=== PATIENT | male | born 1980 | race Two or more races ===

== ENCOUNTER 2018-05-27 08:45 | Inpatient (IN) | payer OTHER ==
[2018-05-27 09:39] VITALS: BMI 35.1
--- NOTE | 2018-05-27 09:53 | HP ---
CIWA Score Nausea/Vomitin Muscle Tremors: 4-Moderate,w/Arms Extend Anxiety: 4-Mod. Anxious/Guarded Agitation: 1-Slight > Activity Paroxysmal Sweats: 3 Orientation: 0-Oriented Tacttile Disturbances: 0-None Auditory Disturbances: 2-Mild Harshness/Frighten Visual Disturbances: 2-Mild Sensitivity Headache: 4-Moderately Severe CIWA-Ar Total Score: 23 - Admission Criteria OASAS Guidelines: Admission for Medically Managed Detox: Requires at least one of the followin. CIWA greater than 12 2. Seizures within the past 24 hours 3. Delirium tremens within the past 24 hours 4. Hallucinations within the past 24 hours 5. Acute intervention needed for co occurring medical disorder 6. Acute intervention needed for co occurring psychiatric disorder 7. Severe withdrawal that cannot be handled at a lower level of care (continued vomiting, continued diarrhea, abnormal vital signs) requiring intravenous medication and/or fluids 8. Admission ROS [facility] Allergies/Adverse Reactions: Allergies Allergy/AdvReac Type Severity Reaction Status Date / Time aspirin Allergy Mild Rash Verified 05/27/18 10:13 History of Present Illness: patient here requesting detox from etoh use , reports 3 pints/day x 5 years , referred by [facility] x almost 5 years current daily dose 130 mg , first age of use heroin 13 , IVDU in [place] , needles from the exchange , + sharing in the past , denies re-using , + abscess R UE 7 years ago lanced by himself , OD x 5 most recently 2 mo ago , Narcan 1998 , latest use this morning , currently 12-13 bags IVDU . ETOH latest use yesterday morning , current symptoms as above , starts drinking around 8 am , + tremors , diarrhea if not drinking , + w/d seizure 2 years ago , + blackouts while intoxicated , + falls 2 weeks ago denies injuries to self or others . Does not drive . cannabis : 1 blunt daily since age 10 tobacco : 2 ppd , first age of use 7 utox + mop, oxy , bzo, thc, mtd benzo : 8-10 x 2 mg xanax daily since age 11 , denies w/d seizures , latest use yesterday cocaine : occasional Shx : group home [place] , unemployed , finances habit through ann-handling , recycling cans . 4 children, 2 in [place] , 2 in [place] : 22, 16 , 8,5 living w/ bio mothers. PMhx : htn , asthma ( dx childhood , hospitalized , NI , has inhaler Albuterol latest used yesterday ), hep C 1997 no tx , claims had " tumor in pelvis " [facility] 1997 , HSV 1 & 2 , denies syphyllis tx PShx : as above Psych : depression , has seen psych in the past, was rx Zyprexa , latest taken 3 weeks ago . Exam Limitations: Clinical Condition - Ebola screening Have you traveled outside of the country in the last 21 days: No Have you had contact with anyone from an Ebola affected area: No Have you been sick,other than usual withdrawal symptoms: Yes Do you have a fever: No - Review of Systems Constitutional: See HPI EENT: reports: Other (denies vision loss, denies dysphagia ,) Respiratory: reports: No Symptoms reported Cardiac: reports: No Symptoms Reported GI: reports: See HPI : reports: No Symptoms Reported Musculoskeletal: reports: Back Pain Integumentary: reports: Erythema (legs) Neuro: reports: Headache, Unsteady Gait Endocrine: reports: No Symptoms Reported Psychiatric: reports: Orientated x3, Depressed Patient History - Patient Medical History Hx Anemia: No Hx Asthma: Yes Hx Chronic Obstructive Pulmonary Disease (COPD): No Hx Cancer: No Hx Cardiac Disorders: No Hx Congestive Heart Failure: No Hx Hypertension: No Hx Hypercholesterolemia: No Hx Pacemaker: No HX Cerebrovascular Accident: No Hx Seizures: No Hx Dementia: No Hx Diabetes: No Hx Gastrointestinal Disorders: No Hx Liver Disease: No Hx Genitourinary Disorders: No Hx Sexually Transmitted Disorders: No Hx Renal Disease (ESRD): No Hx Thyroid Disease: No Hx Human Immunodeficiency Virus (HIV): No Hx Hepatitis C: Yes (no tx. for now) Hx Depression: Yes Hx Suicide Attempt: No Hx Bipolar Disorder: Yes Hx Schizophrenia: No - Patient Surgical History Past Surgical History: Yes Hx Neurologic Surgery: No Hx Cataract Extraction: No Hx Cardiac Surgery: No Hx Lung Surgery: No Hx Breast Surgery: No Hx Breast Biopsy: No Hx Abdominal Surgery: No Hx Appendectomy: No Hx Cholecystectomy: No Hx Genitourinary Surgery: No Hx Section: (n/a) Hx Orthopedic Surgery: Yes (removal of benign tumor left pelvis in 1997 at [facility] [place]) Anesthesia Reaction: No - PPD History Date: 02/07/14 Results: 0 mm - Smoking Cessation Smoking history: Current every day smoker Have you smoked in the past 12 months: Yes Aproximately how many cigarettes per day: 30 Cigars Per Day: 40 Hx Chewing Tobacco Use: No Initiated information on smoking cessation: No - Substances Abused Alcohol Route: Oral Frequency: Daily Amount used: 1 pint of vodka and up Age of first use: 23 Date of Last Use: 05/26/18 Alprazolam (Xanax) Route: Oral Frequency: Daily Amount used: 16mg Age of first use: 13 Date of Last Use: 05/26/18 Heroin Route: Injection Frequency: Daily Amount used: 10-16 bags Age of first use: 12 Date of Last Use: 05/26/18 Marijuana/Hashish Route: Smoking Frequency: 1-2 times per week Amount used: 1 blunt Age of first use: 7 Date of Last Use: 05/20/18 Family Disease History - Family Disease History Family History: Denies Admission Physical Exam [facility] - Vital Signs Vital Signs: Vital Signs - 24 hr 05/27/18 09:34 Temperature 97.4 F L Pulse Rate 63 Respiratory 16 Rate Blood Pressure 124/76 - Physical General Appearance: Yes: Disheveled, Moderate Distress, Tremorous, Anxious HEENTM: Yes: EOMI, Hearing grossly Normal, Normocephalic, Normal Voice, Nasal Congestion Respiratory: Yes: Chest Non-Tender, Lungs Clear, Normal Breath Sounds Neck: Yes: No masses,lesions,Nodules, Trachea in good position Breast: Yes: Breast Exam Deferred Cardiology: Yes: Regular Rhythm, Regular Rate, S1, S2 Abdominal: Yes: Normal Bowel Sounds, Soft Genitourinary: Yes: Within Normal Limits Back: Yes: Normal Inspection Musculoskeletal: Yes: Other (unsteady gait) Extremities: Yes: Tremors, Erythema (le edema, erythema, dry skin) Neurological: Yes: Motor Strength 5/5, Depressed Affect Integumentary: Yes: Normal Color - Diagnostic (1) Sedative hypnotic or anxiolytic dependence Current Visit: Yes Status: Acute (2) Sedative hypnotic withdrawal Current Visit: Yes Status: Acute Qualifiers: Complication of substance-induced condition: uncomplicated Qualified Code(s ): F13.230 - Sedative, hypnotic or anxiolytic dependence with withdrawal, uncomplicated (3) Opioid dependence on agonist therapy Current Visit: Yes Status: Chronic (4) Alcohol dependency Current Visit: No Status: Acute Qualifiers: Substance use status: in withdrawal (5) Nicotine dependence Current Visit: No Status: Chronic Qualifiers: Nicotine product type: cigarettes (6) Cannabis dependence Current Visit: No Status: Chronic BHS Breath Alcohol Content Breath Alcohol Content: 0 Urine Drug Screen - Results Drug Screen Negative: No Urine Drug Screen Results: THC-Marijuana, OPI-Opiates, BZO-Benzodiazepines, MTD- Methadone, OXY-Oxycodone
[2018-05-27] MEDS ORDERED: chlordiazePOXIDE HCL 25 MG CAPSULE PO PRN (10:01)
[2018-05-27] MEDS ORDERED: NICOTINE POLACRILEX 2 MG GUM BUC PRN (10:01)
[2018-05-27] MEDS ORDERED: P-EPHED 60MG/TRIPROLIDI 2.5MG TABLET PO PRN (10:01)
[2018-05-27] MEDS ORDERED: guaiFENesin/D-METHORPHAN HB 10 ML UNIT-DOSE CUPS PO PRN (10:01)
[2018-05-27] MEDS ORDERED: MENTHOL/PHENOL 1 EACH UD MM PRN (10:01)
[2018-05-27] MEDS ORDERED: MAGNESIUM HYDROX 2400MG/30ML ORAL SUSPENSION 30 ML CUP PO PRN (10:01)
[2018-05-27] MEDS ORDERED: MAGNESIUM CITRATE 300 ML BOTTLE PO PRN (10:01)
[2018-05-27] MEDS ORDERED: ACETAMINOPHEN 325 MG TABLET (FP) PO PRN (10:01)
[2018-05-27] MEDS ORDERED: MAG HYDROX/AL HYDROX/SIMETH 30 ML UNIT-DOSE CUP PO PRN (10:01)
[2018-05-27] MEDS ORDERED: ALBUTEROL SO4 0.083% IH SOL 2.5 MG/3 ML VIAL.NEB. NEB PRN (10:03)
[2018-05-27] MEDS: cloNIDine HCL 0.1 MG TABLET PO PRN (11:46)
[2018-05-27] MEDS: ALBUTEROL SO4 8 GM HFA INHALER IH PRN (11:54)
[2018-05-27] MEDS: chlordiazePOXIDE HCL 25 MG CAPSULE PO SCH ×2 (18:28→22:59)
[2018-05-27] MEDS ORDERED: MELATONIN 5 MG TABLETS PO PRN (22:00)
[2018-05-27] MEDS: THIAMINE HCL 100 MG TABLET (FP) PO SCH (22:59)
[2018-05-28] MEDS: chlordiazePOXIDE HCL 25 MG CAPSULE PO SCH ×4 (05:54→23:04)
--- NOTE | 2018-05-28 09:14 | CONSULT ---
[facility] Psychiatric Consult - Data Date of interview: 05/28/18 Admission source: [facility] Identifying data: This is a 37 years old male, father of four, unemployed, living at halfway, on SSI support, with no psychiatric hospitalization history, patient here requesting detox from etoh use , reports Alcohol dependence, Cannabis, Cocaine, Heroin, Xanax abuse/dependence and seeking detox. Reports MMTP with current dose of 130mg per day. Substance Abuse History: Smoking history: Current every day smoker. Have you smoked in the past 12 months: Yes. Aproximately how many cigarettes per day: 30. Cigars Per Day: 40. Hx Chewing Tobacco Use: No. Initiated information on smoking cessation: No. - Substances Abused. Alcohol. Route: Oral. Frequency: Daily. Amount used: 1 pint of vodka and up. Age of first use: 23. Date of Last Use: 05/26/18. Alprazolam (Xanax). Route: Oral. Frequency: Daily. Amount used: 16mg. Age of first use: 13. Date of Last Use: 05/26/18. Heroin. Route: Injection. Frequency: Daily. Amount used: 10-16 bags. Age of first use: 12. Date of Last Use: 05/26/18. Marijuana/Hashish. Route: Smoking. Frequency: 1-2 times per week. Amount used: 1 blunt. Age of first use: 7. Date of Last Use: 05/20/18 Medical History: Asthma, HepC+, Psychiatric History: Patient reports history of depression and anxiety, reports no medications taking prior to admission, denies suicidal, homicidal history. Physical/Sexual Abuse/Trauma History: Denies Additional Comment: Observation. Detox Unit Care Protocol Mental Status Exam - Mental Status Exam Alert and Oriented to: Person Cognitive Function: Fair Patient Appearance: Unkempt Mood: Sad Affect: Flat Patient Behavior: Sedated Speech Pattern: Delayed Voice Loudness: Mildly Soft/Quiet Thought Process: Circumstantial Thought Disorder: Being Controlled Hallucinations: Denies Suicidal Ideation: Denies Homicidal Ideation: Denies Insight/Judgement: Fair Sleep: Difficulty falling asleep Appetite: Weight loss Muscle strength/Tone: Mild Hypotonicity Gait/Station: Shuffling Additional Comments: Observation. Detox Unit Care Protocol Psychiatric Findings - Problem List ([place] 1, 2,3) (1) Sedative hypnotic or anxiolytic dependence Current Visit: Yes Status: Acute (2) Sedative hypnotic withdrawal Current Visit: Yes Status: Acute Qualifiers: Complication of substance-induced condition: uncomplicated Qualified Code(s ): F13.230 - Sedative, hypnotic or anxiolytic dependence with withdrawal, uncomplicated (3) Opioid dependence on agonist therapy Current Visit: Yes Status: Chronic (4) Opioid dependence Current Visit: No Status: Active (5) Sedative dependence Current Visit: No Status: Active (6) mmtp Current Visit: No Status: Active (7) Alcohol dependency Current Visit: No Status: Acute Qualifiers: Substance use status: in withdrawal (8) Methadone maintenance therapy patient Current Visit: No Status: Acute (9) Personality disorder Current Visit: No Status: Acute (10) Substance induced mood disorder Current Visit: No Status: Acute (11) Nicotine dependence Current Visit: No Status: Chronic Qualifiers: Nicotine product type: cigarettes - Initial Treatment Plan Initial Treatment Plan: Observation. Detox Unit Care Protocol
--- NOTE | 2018-05-28 09:15 | CONSULT ---
[facility] Psychiatric Consult - Data Date of interview: 05/28/18 Admission source: [facility] Identifying data: Smoking history: Current every day smoker. Have you smoked in the past 12 months: Yes. Aproximately how many cigarettes per day: 30. Cigars Per Day: 40. Hx Chewing Tobacco Use: No. Initiated information on smoking cessation: No. - Substances Abused. Alcohol. Route: Oral. Frequency: Daily. Amount used: 1 pint of vodka and up. Age of first use: 23. Date of Last Use: 05/26/18. Alprazolam (Xanax). Route: Oral. Frequency: Daily. Amount used: 16mg. Age of first use: 13. Date of Last Use: 05/26/18. Heroin. Route: Injection. Frequency: Daily. Amount used: 10-16 bags. Age of first use: 12. Date of Last Use: 05/26/18. Marijuana/Hashish. Route: Smoking. Frequency: 1-2 times per week. Amount used: 1 blunt. Age of first use: 7. Date of Last Use: 05/20/18
[2018-05-28] MEDS ORDERED: METHADONE HCL 10 MG TABLET PO ONE (10:25)
[2018-05-28 10:31] LABS: ALBUMIN 3.4 g/dl (3.4-5.0); ALK PHOS 74 U/L (45-117); ANION GAP 6 MMOL/L (8-16); BILIRUBIN,TOTAL 0.3 mg/dL (0.2-1); BLOOD UREA NITROGEN 10 mg/dL (7-18); CALCIUM 8.7 mg/dL (8.5-10.1); CHLORIDE 106 mmol/L (98-107); CO2 30 mmol/L (21-32); CREATININE 0.6 mg/dL (0.55-1.3); GLUCOSE,RANDOM 90 mg/dL (74-106); POTASSIUM 4.3 mmol/L (3.5-5.1); SGOT/AST 67 U/L (15-37); SGPT/ALT 48 U/L (13-61); SODIUM 142 mmol/L (136-145); TOT PROT 6.4 g/dl (6.4-8.2)
[2018-05-28] MEDS ORDERED: METHADONE 120 MG, METHADONE 10 MG PO ONE (10:35)
[2018-05-28] MEDS ORDERED: METHADONE HCL 40 MG DISPERSABLE TABLET ONE (10:37)
[2018-05-28] MEDS ORDERED: METHADONE HCL 10 MG TABLET ONE (10:38)
[2018-05-28] MEDS: PRENATAL VITAMINS W/ FOLIC ACID TABLET (FP) PO SCH (10:41)
--- NOTE | 2018-05-28 10:47 | PN ---
S CIWA - CIWA Score Nausea/Vomitin-No Nausea/No Vomiting Muscle Tremors: 4-Moderate,w/Arms Extend Anxiety: 4-Mod. Anxious/Guarded Agitation: 4-Moderately Restless Paroxysmal Sweats: 4-Forehead w/Sweat Beads Orientation: 0-Oriented Tacttile Disturbances: 0-None Auditory Disturbances: 0-None Visual Disturbances: 0-None Headache: 1-Very Mild CIWA-Ar Total Score: 17 BHS Progress Note (SOAP) Subjective: shakes sweats irritable I need my methadone it was verified why didnt the doctor downstairs order it. agitation body aches Objective: 05/28/18 10:46 Vital Signs Temperature 98.4 F 05/28/18 09:22 Pulse Rate 78 05/28/18 09:22 Respiratory Rate 18 05/28/18 09:22 Blood Pressure 115/55 L 05/28/18 09:22 O2 Sat by Pulse Oximetry (%) Laboratory Tests 05/27/18 05/28/18 10:30 06:00 Sodium 142 Potassium 4.3 Chloride 106 Carbon Dioxide 30 Anion Gap 6 L BUN 10 Creatinine 0.6 Creat Clearance w eGFR > 60 Random Glucose 90 Calcium 8.7 Total Bilirubin 0.3 AST 67 H ALT 48 Alkaline Phosphatase 74 Total Protein 6.4 Albumin 3.4 HIV 1&2 Antibody Screen Negative HIV P24 Antigen Negative rest of labs pending aaox3 ambulating no acute distress methadone ordered; dose was verified yesterday as what the pt had said. Assessment: 05/28/18 10:47 withdrawal sx Plan: continue detox increase fluids labs pending
[2018-05-28 12:20] LABS: HEMATOCRIT 35.7 % (35.4-49); HEMOGLOBIN 12.3 GM/dL (11.7-16.9); MCH 30.9 pg (25.7-33.7); MCHC 34.6 g/dl (32.0-35.9); MEAN CELL VOLUME 89.4 fl (80-96); MEAN PLT VOLUME 11.9 fl (7.5-11.1); PLATELET COUNT 147 K/MM3 (134-434); RBC 3.99 M/mm3 (4.00-5.60); RDW 15.4 % (11.9-15.9); WHITE BLOOD COUNT 3.9 K/mm3 (4.0-10.0)
[2018-05-28] MEDS: THIAMINE HCL 100 MG TABLET (FP) PO SCH (23:04)
[2018-05-28] MEDS: cloNIDine HCL 0.1 MG TABLET PO PRN (23:04)
[2018-05-29] MEDS ORDERED: METHADONE HCL 40 MG DISPERSABLE TABLET ONE (05:53)
[2018-05-29] MEDS: chlordiazePOXIDE HCL 25 MG CAPSULE PO SCH ×2 (05:53→11:06)
[2018-05-29] MEDS: METHADONE 120 MG, METHADONE 10 MG PO SCH (05:54)
[2018-05-29] MEDS ORDERED: METHADONE HCL 10 MG TABLET ONE (05:54)
[2018-05-29] MEDS ORDERED: METHADONE HCL 40 MG DISPERSABLE TABLET PO SCH (06:00)
[2018-05-29] MEDS ORDERED: TRIMETHOBENZAMIDE HCL 200MG/2ML INJ IM ONE (09:28)
[2018-05-29] MEDS ORDERED: BACLOFEN 10 MG TABLET (FP) PO ONE (09:28)
[2018-05-29] MEDS ORDERED: TRIMETHOBENZAMIDE HCL 300 MG CAPSULE PO PRN (09:39)
[2018-05-29] MEDS: PRENATAL VITAMINS W/ FOLIC ACID TABLET (FP) PO SCH (11:05)
[2018-05-29] MEDS: cloNIDine HCL 0.1 MG TABLET PO PRN (11:05)
[2018-05-29] MEDS: ALBUTEROL SO4 8 GM HFA INHALER IH PRN (11:08)
--- NOTE | 2018-05-29 11:38 | PN ---
S CIWA - CIWA Score Nausea/Vomitin-No Nausea/No Vomiting Muscle Tremors: 3 Anxiety: 3 Agitation: 3 Paroxysmal Sweats: 3 Orientation: 0-Oriented Tacttile Disturbances: 0-None Auditory Disturbances: 0-None Visual Disturbances: 0-None Headache: 0-None Present CIWA-Ar Total Score: 12 BHS Progress Note (SOAP) Subjective: sweats shakes interrupted sleep body aches nausea Objective: 05/29/18 11:44 Vital Signs Temperature 98.2 F 05/29/18 09:31 Pulse Rate 67 05/29/18 09:31 Respiratory Rate 18 05/29/18 09:31 Blood Pressure 109/61 05/29/18 09:31 O2 Sat by Pulse Oximetry (%) Laboratory Tests 05/27/18 05/28/18 05/28/18 10:30 06:00 06:00 WBC 3.9 L RBC 3.99 L Hgb 12.3 Hct 35.7 MCV 89.4 MCH 30.9 MCHC 34.6 RDW 15.4 Plt Count 147 D MPV 11.9 H Sodium 142 Potassium 4.3 Chloride 106 Carbon Dioxide 30 Anion Gap 6 L BUN 10 Creatinine 0.6 Creat Clearance w eGFR > 60 Random Glucose 90 Calcium 8.7 Total Bilirubin 0.3 AST 67 H ALT 48 Alkaline Phosphatase 74 Total Protein 6.4 Albumin 3.4 RPR Titer HIV 1&2 Antibody Screen Negative HIV P24 Antigen Negative 05/28/18 06:00 WBC RBC Hgb Hct MCV MCH MCHC RDW Plt Count MPV Sodium Potassium Chloride Carbon Dioxide Anion Gap BUN Creatinine Creat Clearance w eGFR Random Glucose Calcium Total Bilirubin AST ALT Alkaline Phosphatase Total Protein Albumin RPR Titer Nonreactive HIV 1&2 Antibody Screen HIV P24 Antigen aaox3 ambulating no acute distress Assessment: 05/29/18 11:45 withdrawal sx Plan: continue detox increase fluids baclofen 10mg tid tigan IM x one/ po prn
[2018-05-29] MEDS: BACLOFEN 10 MG TABLET (FP) PO SCH ×2 (15:26→23:03)
[2018-05-29] MEDS: chlordiazePOXIDE 5 MG CAPSULE PO SCH ×2 (17:30→23:04)
[2018-05-29] MEDS: THIAMINE HCL 100 MG TABLET (FP) PO SCH (23:04)
[2018-05-30] MEDS ORDERED: METHADONE HCL 40 MG DISPERSABLE TABLET ONE (04:34)
[2018-05-30] MEDS ORDERED: METHADONE HCL 10 MG TABLET ONE (04:35)
[2018-05-30] MEDS: BACLOFEN 10 MG TABLET (FP) PO SCH ×2 (05:58→14:20)
[2018-05-30] MEDS: chlordiazePOXIDE 5 MG CAPSULE PO SCH ×2 (05:58→10:16)
[2018-05-30] MEDS: METHADONE 120 MG, METHADONE 10 MG PO SCH (05:59)
[2018-05-30] MEDS: PRENATAL VITAMINS W/ FOLIC ACID TABLET (FP) PO SCH (10:16)
--- NOTE | 2018-05-30 11:18 | PN ---
[facility] Progress Note (SOAP) Subjective: low back pain feeling so much better Objective: 05/30/18 11:08 Vital Signs Temperature 98.4 F 05/30/18 09:58 Pulse Rate 61 05/30/18 09:58 Respiratory Rate 18 05/30/18 09:58 Blood Pressure 120/84 05/30/18 09:58 O2 Sat by Pulse Oximetry (%) aaox3 ambulating no acute distress Assessment: 05/30/18 11:09 no s/s of withdrawal noted. Plan: lidocaine patch d/c [facility] today
--- NOTE | 2018-05-30 12:08 | DS ---
[facility] Detox Discharge Summary Admission Date: 05/27/18 Discharge Date: 05/30/18 - History Present History: Alcohol Dependence, Cannabis Dependence, Sedative Dependence, MMTP - Physical Exam Results Vital Signs: Vital Signs Temperature 98.4 F 05/30/18 09:58 Pulse Rate 61 05/30/18 09:58 Respiratory Rate 18 05/30/18 09:58 Blood Pressure 120/84 05/30/18 09:58 O2 Sat by Pulse Oximetry (%) - Treatment Hospital Course: Detox Protocol Followed, Detoxed Safely, Responded well, Discharged Condition Good, Rehab Referral Accepted - Medication Discharge Medications: Ambulatory Orders Albuterol Sulfate Inhaler - [Ventolin HFA Inhaler -] 2 inh PO Q4H PRN 11/26/13 Clonidine HCl 0.2 mg PO DAILY 05/27/18 Methadone [Dolophine -] 130 mg PO DAILY 05/27/18 - AMA Did Patient Leave Against Medical Advice: No (going to our rehab [facility])
[2018-05-30] MEDS ORDERED: LIDOCAINE 5% TOPICAL PATCH TP ONE (12:11)
[2018-05-30 14:14] VITALS: BP 118/57; PULSE 57; TEMP 97.9
[2018-05-30] MEDS ORDERED: chlordiazePOXIDE HCL 10 MG CAPSULE PO SCH (17:00)
[2018-05-30] MEDS ORDERED: LIDOCAINE PATCH REMOVAL MC SCH (22:00)
== END 2018-05-30 02:30 | disposition other institution (70) | DRG 773 ==
LOC: YASAS 08:45 → Y6N 10:54
PROVIDERS: ADMIT Neuromusculoskeletal Medicine & OMM; ATTEND Neuromusculoskeletal Medicine & OMM
PROC: HZ2ZZZZ Detoxification Services for Substance Abuse Treatment (ICD-10-PCS; principal; 2018-05-27)
DX: F10.230 Alcohol dependence with withdrawal, uncomplicated (principal); F11.20 Opioid dependence, uncomplicated; F13.230 Sedative, hypnotic or anxiolytic dependence with withdrawal, uncomplicated; F12.20 Cannabis dependence, uncomplicated; F17.210 Nicotine dependence, cigarettes, uncomplicated; F60.9 Personality disorder, unspecified; F19.24 Other psychoactive substance dependence with psychoactive substance-induced mood disorder; J45.909 Unspecified asthma, uncomplicated; B18.2 Chronic viral hepatitis C; Z88.6 Allergy status to analgesic agent
CPT/HCPCS: 36415; 80053; 85027; 86593; 87389; J0475; J0735

== ENCOUNTER 2018-05-30 14:38 | Inpatient (IN) | payer OTHER ==
--- NOTE | 2018-05-30 12:09 | HP ---
[facility] Rehab Assess/Revision - Admission History Ad[facility] to Rehab [facility] - Findings Detox History & Physical reviewed: Yes Concur with findings: Yes Inpatient Rehab Admission - Initial Determination Are CD services needed?: Yes Not in need of hospitalization: Yes - Rehab Admission Criteria Previous failed treatment: Yes Poor recovery environment: Yes Comorbidities: Yes Lacks judgement: Yes Patient is meeting Inpatient Rehab admission criteria:: Yes
[~2018-05-30 14:38] MED LIST: IBUPROFEN 400 MG TABLET (FP) PO PRN; LOPERAMIDE HCL 2 MG CAPSULE PO PRN; MAG HYDROX/AL HYDROX/SIMETH 30 ML UNIT-DOSE CUP PO PRN; MAGNESIUM CITRATE 300 ML BOTTLE PO PRN; MAGNESIUM HYDROX 2400MG/30ML ORAL SUSPENSION 30 ML CUP PO PRN; MENTHOL/PHENOL 1 EACH UD MM PRN; P-EPHED 60MG/TRIPROLIDI 2.5MG TABLET PO PRN; guaiFENesin/D-METHORPHAN HB 10 ML UNIT-DOSE CUPS PO PRN
[2018-05-30 15:01] VITALS: BMI 35.1
[2018-05-30] MEDS: MELATONIN 5 MG TABLETS PO PRN (21:42)
[2018-05-30] MEDS: THIAMINE HCL 100 MG TABLET (FP) PO SCH (21:42)
[2018-05-30] MEDS: hydrOXYzine PAMOATE 50 MG CAPSULE (FP) PO PRN (21:43)
[2018-05-30] MEDS: LIDOCAINE PATCH REMOVAL MC SCH (22:12)
[2018-05-31] MEDS ORDERED: METHADONE HCL 40 MG DISPERSABLE TABLET ONE (04:10)
[2018-05-31] MEDS ORDERED: METHADONE HCL 10 MG TABLET ONE (04:10)
[2018-05-31] MEDS: METHADONE 120 MG, METHADONE 10 MG PO SCH (05:57)
[2018-05-31] MEDS ORDERED: METHADONE HCL 40 MG DISPERSABLE TABLET PO SCH (06:00)
[2018-05-31] MEDS: NICOTINE 21 MG/24 HOURS TOPICAL PATCH TD SCH (09:56)
[2018-05-31] MEDS: LIDOCAINE 5% TOPICAL PATCH TP SCH (09:56)
[2018-05-31] MEDS: hydrOXYzine PAMOATE 50 MG CAPSULE (FP) PO PRN ×2 (09:56→21:45)
[2018-05-31] MEDS: PRENATAL VITAMINS W/ FOLIC ACID TABLET (FP) PO SCH (09:56)
[2018-05-31] MEDS ORDERED: FLU VACCINE QUAD 60 MCG/0.5 ML (MDV 18-19) IM ONE (12:00)
[2018-05-31] MEDS: THIAMINE HCL 100 MG TABLET (FP) PO SCH (21:45)
[2018-05-31] MEDS: MELATONIN 5 MG TABLETS PO PRN (21:45)
[2018-05-31] MEDS: LIDOCAINE PATCH REMOVAL MC SCH (21:46)
[2018-06-01] MEDS ORDERED: METHADONE HCL 10 MG TABLET ONE (03:52)
[2018-06-01] MEDS ORDERED: METHADONE HCL 40 MG DISPERSABLE TABLET ONE (03:52)
[2018-06-01] MEDS: METHADONE 120 MG, METHADONE 10 MG PO SCH (06:02)
[2018-06-01] MEDS: PRENATAL VITAMINS W/ FOLIC ACID TABLET (FP) PO SCH (09:43)
[2018-06-01] MEDS: LIDOCAINE 5% TOPICAL PATCH TP SCH (09:43)
[2018-06-01] MEDS: NICOTINE 21 MG/24 HOURS TOPICAL PATCH TD SCH (09:43)
[2018-06-01] MEDS: THIAMINE HCL 100 MG TABLET (FP) PO SCH (21:41)
[2018-06-01] MEDS: hydrOXYzine PAMOATE 50 MG CAPSULE (FP) PO PRN (21:41)
[2018-06-01] MEDS: MELATONIN 5 MG TABLETS PO PRN (21:41)
[2018-06-01] MEDS: LIDOCAINE PATCH REMOVAL MC SCH (21:42)
[2018-06-02] MEDS ORDERED: METHADONE HCL 10 MG TABLET ONE (02:39)
[2018-06-02] MEDS ORDERED: METHADONE HCL 40 MG DISPERSABLE TABLET ONE (02:39)
[2018-06-02] MEDS: METHADONE 120 MG, METHADONE 10 MG PO SCH (06:14)
[2018-06-02] MEDS: NICOTINE 21 MG/24 HOURS TOPICAL PATCH TD SCH (09:39)
[2018-06-02] MEDS: LIDOCAINE 5% TOPICAL PATCH TP SCH (09:39)
[2018-06-02] MEDS: PRENATAL VITAMINS W/ FOLIC ACID TABLET (FP) PO SCH (09:39)
[2018-06-02] MEDS: THIAMINE HCL 100 MG TABLET (FP) PO SCH (21:23)
[2018-06-02] MEDS: LIDOCAINE PATCH REMOVAL MC SCH (21:24)
[2018-06-02] MEDS: MELATONIN 5 MG TABLETS PO PRN (21:24)
[2018-06-02] MEDS: hydrOXYzine PAMOATE 50 MG CAPSULE (FP) PO PRN (21:25)
[2018-06-03] MEDS ORDERED: METHADONE HCL 40 MG DISPERSABLE TABLET ONE (03:16)
[2018-06-03] MEDS ORDERED: METHADONE HCL 10 MG TABLET ONE (03:16)
[2018-06-03] MEDS: METHADONE 120 MG, METHADONE 10 MG PO SCH (06:06)
--- NOTE | 2018-06-03 09:26 | PN ---
[facility] Progress Note Note: PATIENT PRESENTS WITH LOW BACK PAIN WITH NO RELIEF FROM LIDOCAINE PATCHES. PATIENT DENIES FREQUENCY OF URINATION, PAINFUL URINATION, PELVIC PAIN AND FEVER. Vital Signs Temperature 97.3 F L 06/03/18 07:33 Pulse Rate 58 L 06/03/18 07:33 Respiratory Rate 18 06/03/18 07:33 Blood Pressure 132/76 06/03/18 07:33 O2 Sat by Pulse Oximetry (%) PE: ALERT AND ORIENTED X 3 SKIN WARM AND DRY : NEGATIVE CVAT AND PELVIC DISCOMFORT EXT FULL ROM, NO VISIBLE EDEMA AMD AD VALERY A/P: UA ON 05/30/18 REVIEWED AND NEG FOR UTI LBP WILL ADD FLEXERIL TO REGIMEN CONTINUE TO MONITOR CLINICALLY
[2018-06-03] MEDS: hydrOXYzine PAMOATE 50 MG CAPSULE (FP) PO PRN (10:10)
[2018-06-03] MEDS: NICOTINE 21 MG/24 HOURS TOPICAL PATCH TD SCH (10:10)
[2018-06-03] MEDS: LIDOCAINE 5% TOPICAL PATCH TP SCH (10:10)
[2018-06-03] MEDS: PRENATAL VITAMINS W/ FOLIC ACID TABLET (FP) PO SCH (10:10)
[2018-06-03] MEDS: CYCLOBENZAPRINE HCL 10 MG TABLET (FP) PO SCH ×2 (14:48→21:52)
[2018-06-03] MEDS: COLLOIDAL OATMEAL 1 BAR EACH TP PRN (14:48)
[2018-06-03] MEDS: THIAMINE HCL 100 MG TABLET (FP) PO SCH (21:52)
[2018-06-03] MEDS: LIDOCAINE PATCH REMOVAL MC SCH (21:52)
[2018-06-04] MEDS ORDERED: METHADONE HCL 40 MG DISPERSABLE TABLET ONE (04:16)
[2018-06-04] MEDS ORDERED: METHADONE HCL 10 MG TABLET ONE (04:16)
[2018-06-04] MEDS: METHADONE 120 MG, METHADONE 10 MG PO SCH (06:17)
[2018-06-04] MEDS: CYCLOBENZAPRINE HCL 10 MG TABLET (FP) PO SCH ×3 (06:17→22:02)
[2018-06-04] MEDS: PRENATAL VITAMINS W/ FOLIC ACID TABLET (FP) PO SCH (09:44)
[2018-06-04] MEDS: NICOTINE 21 MG/24 HOURS TOPICAL PATCH TD SCH (09:44)
[2018-06-04] MEDS: LIDOCAINE 5% TOPICAL PATCH TP SCH (09:45)
[2018-06-04] MEDS: LIDOCAINE PATCH REMOVAL MC SCH (22:03)
[2018-06-04] MEDS: THIAMINE HCL 100 MG TABLET (FP) PO SCH (22:03)
[2018-06-05] MEDS ORDERED: METHADONE HCL 40 MG DISPERSABLE TABLET ONE (04:06)
[2018-06-05] MEDS ORDERED: METHADONE HCL 10 MG TABLET ONE (04:06)
[2018-06-05] MEDS: METHADONE 120 MG, METHADONE 10 MG PO SCH (06:07)
[2018-06-05] MEDS: CYCLOBENZAPRINE HCL 10 MG TABLET (FP) PO SCH ×3 (06:07→21:46)
[2018-06-05] MEDS: NICOTINE 21 MG/24 HOURS TOPICAL PATCH TD SCH (09:43)
[2018-06-05] MEDS: PRENATAL VITAMINS W/ FOLIC ACID TABLET (FP) PO SCH (09:43)
[2018-06-05] MEDS: hydrOXYzine PAMOATE 50 MG CAPSULE (FP) PO PRN ×2 (09:43→21:46)
[2018-06-05] MEDS: LIDOCAINE 5% TOPICAL PATCH TP SCH (09:43)
[2018-06-05] MEDS: THIAMINE HCL 100 MG TABLET (FP) PO SCH (21:46)
[2018-06-05] MEDS: MELATONIN 5 MG TABLETS PO PRN (21:46)
[2018-06-05] MEDS: LIDOCAINE PATCH REMOVAL MC SCH (21:57)
[2018-06-06] MEDS ORDERED: METHADONE HCL 40 MG DISPERSABLE TABLET ONE (04:05)
[2018-06-06] MEDS ORDERED: METHADONE HCL 10 MG TABLET ONE (04:05)
[2018-06-06] MEDS: METHADONE 120 MG, METHADONE 10 MG PO SCH (06:03)
[2018-06-06] MEDS: CYCLOBENZAPRINE HCL 10 MG TABLET (FP) PO SCH ×3 (06:03→21:55)
[2018-06-06] MEDS: LIDOCAINE 5% TOPICAL PATCH TP SCH (10:38)
[2018-06-06] MEDS: PRENATAL VITAMINS W/ FOLIC ACID TABLET (FP) PO SCH (10:38)
[2018-06-06] MEDS: NICOTINE 21 MG/24 HOURS TOPICAL PATCH TD SCH (10:38)
[2018-06-06] MEDS: LIDOCAINE PATCH REMOVAL MC SCH (21:55)
[2018-06-06] MEDS: THIAMINE HCL 100 MG TABLET (FP) PO SCH (21:55)
[2018-06-07] MEDS ORDERED: METHADONE HCL 40 MG DISPERSABLE TABLET ONE (03:24)
[2018-06-07] MEDS ORDERED: METHADONE HCL 10 MG TABLET ONE (03:24)
[2018-06-07] MEDS: METHADONE 120 MG, METHADONE 10 MG PO SCH (06:06)
[2018-06-07] MEDS: CYCLOBENZAPRINE HCL 10 MG TABLET (FP) PO SCH ×3 (06:06→21:46)
[2018-06-07] MEDS: PRENATAL VITAMINS W/ FOLIC ACID TABLET (FP) PO SCH (09:48)
[2018-06-07] MEDS: NICOTINE 21 MG/24 HOURS TOPICAL PATCH TD SCH (09:48)
[2018-06-07] MEDS: LIDOCAINE 5% TOPICAL PATCH TP SCH (09:48)
[2018-06-07] MEDS: THIAMINE HCL 100 MG TABLET (FP) PO SCH (21:46)
[2018-06-07] MEDS: LIDOCAINE PATCH REMOVAL MC SCH (21:47)
[2018-06-07] MEDS: MELATONIN 5 MG TABLETS PO PRN (21:47)
[2018-06-08] MEDS ORDERED: METHADONE HCL 10 MG TABLET ONE (02:53)
[2018-06-08] MEDS ORDERED: METHADONE HCL 40 MG DISPERSABLE TABLET ONE (02:53)
[2018-06-08] MEDS: METHADONE 120 MG, METHADONE 10 MG PO SCH (06:18)
[2018-06-08] MEDS: CYCLOBENZAPRINE HCL 10 MG TABLET (FP) PO SCH ×3 (06:18→23:11)
[2018-06-08] MEDS: PRENATAL VITAMINS W/ FOLIC ACID TABLET (FP) PO SCH (09:34)
[2018-06-08] MEDS: COLLOIDAL OATMEAL 1 BAR EACH TP PRN (09:35)
[2018-06-08] MEDS: NICOTINE 21 MG/24 HOURS TOPICAL PATCH TD SCH (09:35)
[2018-06-08] MEDS: LIDOCAINE 5% TOPICAL PATCH TP SCH (09:35)
[2018-06-08] MEDS: THIAMINE HCL 100 MG TABLET (FP) PO SCH (23:12)
[2018-06-08] MEDS: LIDOCAINE PATCH REMOVAL MC SCH (23:12)
[2018-06-09] MEDS ORDERED: METHADONE HCL 40 MG DISPERSABLE TABLET ONE (03:59)
[2018-06-09] MEDS ORDERED: METHADONE HCL 10 MG TABLET ONE (03:59)
[2018-06-09] MEDS: METHADONE 120 MG, METHADONE 10 MG PO SCH (06:21)
[2018-06-09] MEDS: CYCLOBENZAPRINE HCL 10 MG TABLET (FP) PO SCH ×3 (06:21→21:36)
[2018-06-09] MEDS: hydrOXYzine PAMOATE 50 MG CAPSULE (FP) PO PRN (06:22)
[2018-06-09] MEDS: HYDROCHLOROTHIAZIDE 25 MG TABLET (FP) PO SCH (07:03)
[2018-06-09] MEDS: cloNIDine HCL 0.1 MG TABLET PO SCH (07:04)
[2018-06-09] MEDS: LIDOCAINE 5% TOPICAL PATCH TP SCH (09:52)
[2018-06-09] MEDS: PRENATAL VITAMINS W/ FOLIC ACID TABLET (FP) PO SCH (09:52)
[2018-06-09] MEDS: NICOTINE 21 MG/24 HOURS TOPICAL PATCH TD SCH (09:52)
[2018-06-09] MEDS: THIAMINE HCL 100 MG TABLET (FP) PO SCH (21:36)
[2018-06-09] MEDS: MELATONIN 5 MG TABLETS PO PRN (21:36)
[2018-06-09] MEDS: LIDOCAINE PATCH REMOVAL MC SCH (22:02)
[2018-06-10] MEDS ORDERED: METHADONE HCL 40 MG DISPERSABLE TABLET ONE (04:08)
[2018-06-10] MEDS ORDERED: METHADONE HCL 10 MG TABLET ONE (04:08)
[2018-06-10] MEDS: cloNIDine HCL 0.1 MG TABLET PO SCH (06:20)
[2018-06-10] MEDS: HYDROCHLOROTHIAZIDE 25 MG TABLET (FP) PO SCH (06:20)
[2018-06-10] MEDS: CYCLOBENZAPRINE HCL 10 MG TABLET (FP) PO SCH ×3 (06:21→22:04)
[2018-06-10] MEDS: METHADONE 120 MG, METHADONE 10 MG PO SCH (06:21)
[2018-06-10] MEDS: NICOTINE 21 MG/24 HOURS TOPICAL PATCH TD SCH (09:57)
[2018-06-10] MEDS: LIDOCAINE 5% TOPICAL PATCH TP SCH (09:57)
[2018-06-10] MEDS: PRENATAL VITAMINS W/ FOLIC ACID TABLET (FP) PO SCH (09:57)
[2018-06-10] MEDS: THIAMINE HCL 100 MG TABLET (FP) PO SCH (22:06)
[2018-06-10] MEDS: LIDOCAINE PATCH REMOVAL MC SCH (22:12)
[2018-06-11] MEDS ORDERED: METHADONE HCL 10 MG TABLET ONE (03:58)
[2018-06-11] MEDS ORDERED: METHADONE HCL 40 MG DISPERSABLE TABLET ONE (03:59)
[2018-06-11] MEDS: METHADONE 120 MG, METHADONE 10 MG PO SCH (06:09)
[2018-06-11] MEDS: HYDROCHLOROTHIAZIDE 25 MG TABLET (FP) PO SCH (06:10)
[2018-06-11] MEDS: CYCLOBENZAPRINE HCL 10 MG TABLET (FP) PO SCH ×3 (06:10→21:38)
[2018-06-11] MEDS: cloNIDine HCL 0.1 MG TABLET PO SCH (06:10)
[2018-06-11] MEDS: PRENATAL VITAMINS W/ FOLIC ACID TABLET (FP) PO SCH (09:42)
[2018-06-11] MEDS: NICOTINE 21 MG/24 HOURS TOPICAL PATCH TD SCH (09:42)
[2018-06-11] MEDS: LIDOCAINE 5% TOPICAL PATCH TP SCH (09:43)
[2018-06-11] MEDS: ACETAMINOPHEN 325 MG TABLET (FP) PO PRN (12:03)
[2018-06-11] MEDS: THIAMINE HCL 100 MG TABLET (FP) PO SCH (21:37)
[2018-06-11] MEDS: LIDOCAINE PATCH REMOVAL MC SCH (21:37)
[2018-06-11] MEDS: hydrOXYzine PAMOATE 50 MG CAPSULE (FP) PO PRN (21:38)
[2018-06-11] MEDS: MELATONIN 5 MG TABLETS PO PRN (21:38)
[2018-06-12] MEDS ORDERED: METHADONE HCL 40 MG DISPERSABLE TABLET ONE (05:53)
[2018-06-12] MEDS ORDERED: METHADONE HCL 10 MG TABLET ONE (05:53)
[2018-06-12] MEDS: METHADONE 120 MG, METHADONE 10 MG PO SCH (06:18)
[2018-06-12] MEDS: HYDROCHLOROTHIAZIDE 25 MG TABLET (FP) PO SCH (06:18)
[2018-06-12] MEDS: CYCLOBENZAPRINE HCL 10 MG TABLET (FP) PO SCH (06:18)
[2018-06-12] MEDS: cloNIDine HCL 0.1 MG TABLET PO SCH (06:18)
[2018-06-12] MEDS: NICOTINE 21 MG/24 HOURS TOPICAL PATCH TD SCH (09:52)
[2018-06-12] MEDS: PRENATAL VITAMINS W/ FOLIC ACID TABLET (FP) PO SCH (09:52)
[2018-06-12] MEDS: LIDOCAINE 5% TOPICAL PATCH TP SCH (09:52)
[2018-06-12] MEDS: hydrOXYzine PAMOATE 50 MG CAPSULE (FP) PO PRN ×2 (09:55→21:52)
--- NOTE | 2018-06-12 10:13 | PN ---
[facility] Progress Note Note: PATIENT SEEN FOR C/O LBP WITH NO RELIEF FROM FLEXERIL OR LIDOCAINE PATCH. PATIENT DENIES RECENT INJURY AND NUMBNESS/TINGLING TO LEGS/FEET. Vital Signs Temperature 97.2 F L 06/12/18 07:02 Pulse Rate 74 06/12/18 07:02 Respiratory Rate 18 06/12/18 07:02 Blood Pressure 127/80 06/12/18 07:02 O2 Sat by Pulse Oximetry (%) PE: ALERT AND ORIENTED X 3 SKIN WARM AND DRY MS + LS SPINE TENDERNESS EXT FULL ROM, AMB AD VALERY A/P: LBP WILL D/C FLEXERIL START ROBAXIN 500MG BID CONTINUE TO MONITOR CLINICALLY
[2018-06-12] MEDS: METHOCARBAMOL 500 MG TABLET PO SCH ×2 (11:14→21:52)
[2018-06-12] MEDS: THIAMINE HCL 100 MG TABLET (FP) PO SCH (21:52)
[2018-06-12] MEDS: LIDOCAINE PATCH REMOVAL MC SCH (21:53)
[2018-06-13] MEDS ORDERED: METHADONE HCL 40 MG DISPERSABLE TABLET ONE (04:23)
[2018-06-13] MEDS ORDERED: METHADONE HCL 10 MG TABLET ONE (04:23)
[2018-06-13] MEDS: HYDROCHLOROTHIAZIDE 25 MG TABLET (FP) PO SCH (06:14)
[2018-06-13] MEDS: METHADONE 120 MG, METHADONE 10 MG PO SCH (06:14)
[2018-06-13] MEDS: cloNIDine HCL 0.1 MG TABLET PO SCH (06:14)
[2018-06-13] MEDS: hydrOXYzine PAMOATE 50 MG CAPSULE (FP) PO PRN ×2 (09:56→21:58)
[2018-06-13] MEDS: METHOCARBAMOL 500 MG TABLET PO SCH ×2 (09:56→21:57)
[2018-06-13] MEDS: LIDOCAINE 5% TOPICAL PATCH TP SCH (09:56)
[2018-06-13] MEDS: PRENATAL VITAMINS W/ FOLIC ACID TABLET (FP) PO SCH (09:56)
[2018-06-13] MEDS: NICOTINE 21 MG/24 HOURS TOPICAL PATCH TD SCH (09:56)
[2018-06-13] MEDS: THIAMINE HCL 100 MG TABLET (FP) PO SCH (21:57)
[2018-06-13] MEDS: MELATONIN 5 MG TABLETS PO PRN (21:57)
[2018-06-13] MEDS: LIDOCAINE PATCH REMOVAL MC SCH (21:58)
[2018-06-14] MEDS ORDERED: METHADONE HCL 10 MG TABLET ONE (04:11)
[2018-06-14] MEDS ORDERED: METHADONE HCL 40 MG DISPERSABLE TABLET ONE (04:11)
[2018-06-14] MEDS: HYDROCHLOROTHIAZIDE 25 MG TABLET (FP) PO SCH (05:54)
[2018-06-14] MEDS: METHADONE 120 MG, METHADONE 10 MG PO SCH (05:55)
[2018-06-14] MEDS: cloNIDine HCL 0.1 MG TABLET PO SCH (05:55)
[2018-06-14] MEDS: COLLOIDAL OATMEAL 1 BAR EACH TP PRN (05:58)
[2018-06-14] MEDS: METHOCARBAMOL 500 MG TABLET PO SCH ×2 (09:39→21:20)
[2018-06-14] MEDS: NICOTINE 21 MG/24 HOURS TOPICAL PATCH TD SCH (09:39)
[2018-06-14] MEDS: hydrOXYzine PAMOATE 50 MG CAPSULE (FP) PO PRN ×2 (09:39→21:21)
[2018-06-14] MEDS: PRENATAL VITAMINS W/ FOLIC ACID TABLET (FP) PO SCH (09:39)
[2018-06-14] MEDS: LIDOCAINE 5% TOPICAL PATCH TP SCH (09:39)
[2018-06-14] MEDS: NICOTINE POLACRILEX 4 MG GUM BUC PRN (09:40)
[2018-06-14] MEDS: THIAMINE HCL 100 MG TABLET (FP) PO SCH (21:20)
[2018-06-14] MEDS: LIDOCAINE PATCH REMOVAL MC SCH (21:20)
[2018-06-14] MEDS: MELATONIN 5 MG TABLETS PO PRN (21:20)
[2018-06-15] MEDS ORDERED: METHADONE HCL 10 MG TABLET ONE (03:53)
[2018-06-15] MEDS ORDERED: METHADONE HCL 40 MG DISPERSABLE TABLET ONE (03:53)
[2018-06-15] MEDS: METHADONE 120 MG, METHADONE 10 MG PO SCH (05:59)
[2018-06-15] MEDS: HYDROCHLOROTHIAZIDE 25 MG TABLET (FP) PO SCH (05:59)
[2018-06-15] MEDS: cloNIDine HCL 0.1 MG TABLET PO SCH (05:59)
[2018-06-15] MEDS: PRENATAL VITAMINS W/ FOLIC ACID TABLET (FP) PO SCH (10:17)
[2018-06-15] MEDS: METHOCARBAMOL 500 MG TABLET PO SCH ×2 (10:17→21:48)
[2018-06-15] MEDS: LIDOCAINE 5% TOPICAL PATCH TP SCH (10:17)
[2018-06-15] MEDS: NICOTINE 21 MG/24 HOURS TOPICAL PATCH TD SCH (10:17)
[2018-06-15] MEDS: THIAMINE HCL 100 MG TABLET (FP) PO SCH (21:48)
[2018-06-15] MEDS: hydrOXYzine PAMOATE 50 MG CAPSULE (FP) PO PRN (21:49)
[2018-06-15] MEDS: MELATONIN 5 MG TABLETS PO PRN (21:49)
[2018-06-15] MEDS: LIDOCAINE PATCH REMOVAL MC SCH (21:49)
[2018-06-16] MEDS ORDERED: METHADONE HCL 10 MG TABLET ONE (04:14)
[2018-06-16] MEDS ORDERED: METHADONE HCL 40 MG DISPERSABLE TABLET ONE (04:14)
[2018-06-16] MEDS: HYDROCHLOROTHIAZIDE 25 MG TABLET (FP) PO SCH (06:24)
[2018-06-16] MEDS: METHADONE 120 MG, METHADONE 10 MG PO SCH (06:24)
[2018-06-16] MEDS: cloNIDine HCL 0.1 MG TABLET PO SCH (06:24)
[2018-06-16] MEDS: PRENATAL VITAMINS W/ FOLIC ACID TABLET (FP) PO SCH (09:45)
[2018-06-16] MEDS: NICOTINE 21 MG/24 HOURS TOPICAL PATCH TD SCH (09:45)
[2018-06-16] MEDS: hydrOXYzine PAMOATE 50 MG CAPSULE (FP) PO PRN ×2 (09:45→21:16)
[2018-06-16] MEDS: METHOCARBAMOL 500 MG TABLET PO SCH ×2 (09:45→21:16)
[2018-06-16] MEDS: NICOTINE POLACRILEX 4 MG GUM BUC PRN (09:46)
[2018-06-16] MEDS: LIDOCAINE 5% TOPICAL PATCH TP SCH (09:46)
[2018-06-16] MEDS: COLLOIDAL OATMEAL 1 BAR EACH TP PRN (09:47)
[2018-06-16] MEDS: THIAMINE HCL 100 MG TABLET (FP) PO SCH (21:16)
[2018-06-16] MEDS: MELATONIN 5 MG TABLETS PO PRN (21:16)
[2018-06-16] MEDS: LIDOCAINE PATCH REMOVAL MC SCH (21:17)
[2018-06-17] MEDS ORDERED: METHADONE HCL 10 MG TABLET ONE (03:13)
[2018-06-17] MEDS ORDERED: METHADONE HCL 40 MG DISPERSABLE TABLET ONE (03:14)
[2018-06-17] MEDS: cloNIDine HCL 0.1 MG TABLET PO SCH (06:25)
[2018-06-17] MEDS: HYDROCHLOROTHIAZIDE 25 MG TABLET (FP) PO SCH (06:25)
[2018-06-17] MEDS: METHADONE 120 MG, METHADONE 10 MG PO SCH (06:26)
[2018-06-17] MEDS: LIDOCAINE 5% TOPICAL PATCH TP SCH (09:53)
[2018-06-17] MEDS: NICOTINE 21 MG/24 HOURS TOPICAL PATCH TD SCH (09:53)
[2018-06-17] MEDS: METHOCARBAMOL 500 MG TABLET PO SCH ×2 (09:53→22:08)
[2018-06-17] MEDS: PRENATAL VITAMINS W/ FOLIC ACID TABLET (FP) PO SCH (09:53)
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
[2018-06-17] MEDS ORDERED: ALBUTEROL SO4 8 GM HFA INHALER IH PRN (21:50)
[2018-06-17] MEDS ORDERED: cloNIDine HCL 0.1 MG TABLET PO ONE (21:50)
--- NOTE | 2018-06-17 21:50 | PN ---
S Progress Note Note: Vital Signs Temperature 98.1 F 06/17/18 21:02 Pulse Rate 73 06/17/18 21:02 Respiratory Rate 20 06/17/18 21:02 Blood Pressure 155/110 H 06/17/18 21:02 O2 Sat by Pulse Oximetry (%) elevated BP clonodine 0.1 mg stat increase fluids continue to monitor
[2018-06-17] MEDS: LIDOCAINE PATCH REMOVAL MC SCH (22:06)
[2018-06-17] MEDS: hydrOXYzine PAMOATE 50 MG CAPSULE (FP) PO PRN (22:08)
[2018-06-17] MEDS: MELATONIN 5 MG TABLETS PO PRN (22:08)
[2018-06-17] MEDS: THIAMINE HCL 100 MG TABLET (FP) PO SCH (22:08)
[2018-06-18] MEDS ORDERED: METHADONE HCL 10 MG TABLET ONE (05:47)
[2018-06-18] MEDS ORDERED: METHADONE HCL 40 MG DISPERSABLE TABLET ONE (05:47)
[2018-06-18] MEDS: cloNIDine HCL 0.1 MG TABLET PO SCH (06:12)
[2018-06-18] MEDS: METHADONE 120 MG, METHADONE 10 MG PO SCH (06:12)
[2018-06-18] MEDS: HYDROCHLOROTHIAZIDE 25 MG TABLET (FP) PO SCH (06:12)
[2018-06-18] MEDS: ACETAMINOPHEN 325 MG TABLET (FP) PO PRN (09:19)
[2018-06-18] MEDS: METHOCARBAMOL 500 MG TABLET PO SCH ×2 (09:19→21:36)
[2018-06-18] MEDS: hydrOXYzine PAMOATE 50 MG CAPSULE (FP) PO PRN ×2 (09:19→21:38)
[2018-06-18] MEDS: LIDOCAINE 5% TOPICAL PATCH TP SCH (09:20)
[2018-06-18] MEDS: PRENATAL VITAMINS W/ FOLIC ACID TABLET (FP) PO SCH (09:20)
[2018-06-18] MEDS: NICOTINE 21 MG/24 HOURS TOPICAL PATCH TD SCH (09:22)
[2018-06-18] MEDS: THIAMINE HCL 100 MG TABLET (FP) PO SCH (21:36)
[2018-06-18] MEDS: MELATONIN 5 MG TABLETS PO PRN (21:37)
[2018-06-18] MEDS: LIDOCAINE PATCH REMOVAL MC SCH (21:37)
[2018-06-19] MEDS ORDERED: METHADONE HCL 10 MG TABLET ONE (04:01)
[2018-06-19] MEDS ORDERED: METHADONE HCL 40 MG DISPERSABLE TABLET ONE (04:01)
[2018-06-19] MEDS: HYDROCHLOROTHIAZIDE 25 MG TABLET (FP) PO SCH (05:56)
[2018-06-19] MEDS: METHADONE 120 MG, METHADONE 10 MG PO SCH (05:56)
[2018-06-19] MEDS: cloNIDine HCL 0.1 MG TABLET PO SCH (05:56)
[2018-06-19] MEDS: LIDOCAINE 5% TOPICAL PATCH TP SCH (09:47)
[2018-06-19] MEDS: NICOTINE 21 MG/24 HOURS TOPICAL PATCH TD SCH (09:47)
[2018-06-19] MEDS: METHOCARBAMOL 500 MG TABLET PO SCH ×2 (09:47→21:45)
[2018-06-19] MEDS: PRENATAL VITAMINS W/ FOLIC ACID TABLET (FP) PO SCH (09:47)
[2018-06-19] MEDS: ACETAMINOPHEN 325 MG TABLET (FP) PO PRN (09:48)
[2018-06-19] MEDS: hydrOXYzine PAMOATE 50 MG CAPSULE (FP) PO PRN (09:48)
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
[2018-06-19] MEDS: SERTRALINE HCL 50 MG TABLET (FP) PO SCH (12:35)
[2018-06-19] MEDS: THIAMINE HCL 100 MG TABLET (FP) PO SCH (21:45)
[2018-06-19] MEDS: traZODone HCL 100 MG TABLET (FP) PO SCH (21:45)
[2018-06-19] MEDS: OLANZapine 10 MG TABLET PO SCH (21:45)
[2018-06-19] MEDS: LIDOCAINE PATCH REMOVAL MC SCH (21:46)
[2018-06-20] MEDS ORDERED: METHADONE HCL 10 MG TABLET ONE (03:55)
[2018-06-20] MEDS ORDERED: METHADONE HCL 40 MG DISPERSABLE TABLET ONE (03:55)
[2018-06-20] MEDS: cloNIDine HCL 0.1 MG TABLET PO SCH (06:12)
[2018-06-20] MEDS: METHADONE 120 MG, METHADONE 10 MG PO SCH (06:12)
[2018-06-20] MEDS: HYDROCHLOROTHIAZIDE 25 MG TABLET (FP) PO SCH (06:12)
[2018-06-20] MEDS: METHOCARBAMOL 500 MG TABLET PO SCH ×2 (09:34→21:52)
[2018-06-20] MEDS: PRENATAL VITAMINS W/ FOLIC ACID TABLET (FP) PO SCH (09:34)
[2018-06-20] MEDS: NICOTINE 21 MG/24 HOURS TOPICAL PATCH TD SCH (09:35)
[2018-06-20] MEDS: hydrOXYzine PAMOATE 50 MG CAPSULE (FP) PO PRN (09:35)
[2018-06-20] MEDS: LIDOCAINE 5% TOPICAL PATCH TP SCH (09:36)
[2018-06-20] MEDS: SERTRALINE HCL 50 MG TABLET (FP) PO SCH (09:37)
[2018-06-20] MEDS: traZODone HCL 100 MG TABLET (FP) PO SCH (21:52)
[2018-06-20] MEDS: OLANZapine 10 MG TABLET PO SCH (21:52)
[2018-06-20] MEDS: LIDOCAINE PATCH REMOVAL MC SCH (21:52)
[2018-06-20] MEDS: THIAMINE HCL 100 MG TABLET (FP) PO SCH (21:52)
[2018-06-21] MEDS ORDERED: METHADONE HCL 10 MG TABLET ONE (03:23)
[2018-06-21] MEDS ORDERED: METHADONE HCL 40 MG DISPERSABLE TABLET ONE (03:23)
[2018-06-21] MEDS: METHADONE 120 MG, METHADONE 10 MG PO SCH (06:21)
[2018-06-21] MEDS: HYDROCHLOROTHIAZIDE 25 MG TABLET (FP) PO SCH (06:21)
[2018-06-21] MEDS: cloNIDine HCL 0.1 MG TABLET PO SCH (06:21)
[2018-06-21] MEDS: NICOTINE 21 MG/24 HOURS TOPICAL PATCH TD SCH (09:23)
[2018-06-21] MEDS: PRENATAL VITAMINS W/ FOLIC ACID TABLET (FP) PO SCH (09:23)
[2018-06-21] MEDS: SERTRALINE HCL 50 MG TABLET (FP) PO SCH (09:23)
[2018-06-21] MEDS: LIDOCAINE 5% TOPICAL PATCH TP SCH (09:23)
[2018-06-21] MEDS: hydrOXYzine PAMOATE 50 MG CAPSULE (FP) PO PRN ×2 (09:24→21:15)
[2018-06-21] MEDS: METHOCARBAMOL 500 MG TABLET PO SCH ×2 (09:24→21:15)
[2018-06-21] MEDS: ACETAMINOPHEN 325 MG TABLET (FP) PO PRN (09:24)
[2018-06-21] MEDS: THIAMINE HCL 100 MG TABLET (FP) PO SCH (21:14)
[2018-06-21] MEDS: MELATONIN 5 MG TABLETS PO PRN (21:15)
[2018-06-21] MEDS: traZODone HCL 100 MG TABLET (FP) PO SCH (21:15)
[2018-06-21] MEDS: LIDOCAINE PATCH REMOVAL MC SCH (21:15)
[2018-06-21] MEDS: OLANZapine 10 MG TABLET PO SCH (21:15)
[2018-06-22] MEDS ORDERED: METHADONE HCL 40 MG DISPERSABLE TABLET ONE (03:15)
[2018-06-22] MEDS ORDERED: METHADONE HCL 10 MG TABLET ONE (03:15)
[2018-06-22] MEDS: HYDROCHLOROTHIAZIDE 25 MG TABLET (FP) PO SCH (06:33)
[2018-06-22] MEDS: METHADONE 120 MG, METHADONE 10 MG PO SCH (06:33)
[2018-06-22] MEDS: cloNIDine HCL 0.1 MG TABLET PO SCH (06:33)
[2018-06-22] MEDS: SERTRALINE HCL 50 MG TABLET (FP) PO SCH (09:19)
[2018-06-22] MEDS: PRENATAL VITAMINS W/ FOLIC ACID TABLET (FP) PO SCH (09:19)
[2018-06-22] MEDS: LIDOCAINE 5% TOPICAL PATCH TP SCH (09:19)
[2018-06-22] MEDS: NICOTINE 21 MG/24 HOURS TOPICAL PATCH TD SCH (09:19)
[2018-06-22] MEDS: METHOCARBAMOL 500 MG TABLET PO SCH ×2 (09:19→21:03)
[2018-06-22] MEDS: OLANZapine 10 MG TABLET PO SCH (21:03)
[2018-06-22] MEDS: LIDOCAINE PATCH REMOVAL MC SCH (21:03)
[2018-06-22] MEDS: traZODone HCL 100 MG TABLET (FP) PO SCH (21:03)
[2018-06-22] MEDS: THIAMINE HCL 100 MG TABLET (FP) PO SCH (21:03)
[2018-06-22] MEDS: MELATONIN 5 MG TABLETS PO PRN (21:04)
[2018-06-23] MEDS ORDERED: METHADONE HCL 10 MG TABLET ONE (03:23)
[2018-06-23] MEDS ORDERED: METHADONE HCL 40 MG DISPERSABLE TABLET ONE (03:23)
[2018-06-23] MEDS: METHADONE 120 MG, METHADONE 10 MG PO SCH (06:16)
[2018-06-23] MEDS: cloNIDine HCL 0.1 MG TABLET PO SCH (06:16)
[2018-06-23] MEDS: HYDROCHLOROTHIAZIDE 25 MG TABLET (FP) PO SCH (06:16)
[2018-06-23] MEDS: COLLOIDAL OATMEAL 1 BAR EACH TP PRN (06:24)
[2018-06-23] MEDS: LIDOCAINE 5% TOPICAL PATCH TP SCH (09:41)
[2018-06-23] MEDS: NICOTINE 21 MG/24 HOURS TOPICAL PATCH TD SCH (09:41)
[2018-06-23] MEDS: hydrOXYzine PAMOATE 50 MG CAPSULE (FP) PO PRN ×2 (09:43→21:44)
[2018-06-23] MEDS: METHOCARBAMOL 500 MG TABLET PO SCH ×2 (09:43→21:44)
[2018-06-23] MEDS: PRENATAL VITAMINS W/ FOLIC ACID TABLET (FP) PO SCH (09:43)
[2018-06-23] MEDS: SERTRALINE HCL 50 MG TABLET (FP) PO SCH (09:43)
[2018-06-23] MEDS ORDERED: PT OWN MED DRAWER 7, Y5N ONE (15:38)
[2018-06-23] MEDS: OLANZapine 10 MG TABLET PO SCH (21:44)
[2018-06-23] MEDS: THIAMINE HCL 100 MG TABLET (FP) PO SCH (21:44)
[2018-06-23] MEDS: traZODone HCL 100 MG TABLET (FP) PO SCH (21:44)
[2018-06-23] MEDS: LIDOCAINE PATCH REMOVAL MC SCH (22:36)
[2018-06-24] MEDS ORDERED: METHADONE HCL 10 MG TABLET ONE (04:55)
[2018-06-24] MEDS ORDERED: METHADONE HCL 40 MG DISPERSABLE TABLET ONE (04:56)
[2018-06-24] MEDS: HYDROCHLOROTHIAZIDE 25 MG TABLET (FP) PO SCH (06:07)
[2018-06-24] MEDS: cloNIDine HCL 0.1 MG TABLET PO SCH (06:08)
[2018-06-24] MEDS: METHADONE 120 MG, METHADONE 10 MG PO SCH (06:08)
[2018-06-24] MEDS: SERTRALINE HCL 50 MG TABLET (FP) PO SCH (09:37)
[2018-06-24] MEDS: METHOCARBAMOL 500 MG TABLET PO SCH ×2 (09:37→21:49)
[2018-06-24] MEDS: PRENATAL VITAMINS W/ FOLIC ACID TABLET (FP) PO SCH (09:37)
[2018-06-24] MEDS: NICOTINE 21 MG/24 HOURS TOPICAL PATCH TD SCH (09:37)
[2018-06-24] MEDS: LIDOCAINE 5% TOPICAL PATCH TP SCH (09:38)
[2018-06-24] MEDS: hydrOXYzine PAMOATE 50 MG CAPSULE (FP) PO PRN ×2 (09:38→21:49)
[2018-06-24] MEDS: traZODone HCL 100 MG TABLET (FP) PO SCH (21:49)
[2018-06-24] MEDS: OLANZapine 10 MG TABLET PO SCH (21:49)
[2018-06-24] MEDS: THIAMINE HCL 100 MG TABLET (FP) PO SCH (21:49)
[2018-06-24] MEDS: MELATONIN 5 MG TABLETS PO PRN (21:50)
[2018-06-24] MEDS: LIDOCAINE PATCH REMOVAL MC SCH (21:50)
[2018-06-25] MEDS ORDERED: METHADONE HCL 10 MG TABLET ONE (04:13)
[2018-06-25] MEDS ORDERED: METHADONE HCL 40 MG DISPERSABLE TABLET ONE (04:14)
[2018-06-25] MEDS: METHADONE 120 MG, METHADONE 10 MG PO SCH (06:00)
[2018-06-25] MEDS: cloNIDine HCL 0.1 MG TABLET PO SCH (06:00)
[2018-06-25] MEDS: HYDROCHLOROTHIAZIDE 25 MG TABLET (FP) PO SCH (06:00)
[2018-06-25] MEDS: SERTRALINE HCL 50 MG TABLET (FP) PO SCH (11:39)
[2018-06-25] MEDS: NICOTINE 21 MG/24 HOURS TOPICAL PATCH TD SCH (11:39)
[2018-06-25] MEDS: LIDOCAINE 5% TOPICAL PATCH TP SCH (11:39)
[2018-06-25] MEDS: PRENATAL VITAMINS W/ FOLIC ACID TABLET (FP) PO SCH (11:39)
[2018-06-25] MEDS: METHOCARBAMOL 500 MG TABLET PO SCH ×2 (11:39→21:13)
[2018-06-25] MEDS: hydrOXYzine PAMOATE 50 MG CAPSULE (FP) PO PRN ×2 (12:39→21:13)
--- NOTE | 2018-06-25 14:48 | PN ---
[facility] Progress Note Note: PATIENT IS SCHEDULED FOR EARLY DISCHARGE TOMORROW MORNING AT 7AM. PATIENT TO FOLLOW UP AT [facility]. PATIENT STATES HE ACCOMPLISHED ALL REHAB GOALS. HE IS MEDICALLY STABLE AT THIS TIME AND DENIES SI/HI. PATIENT ENCOURAGED TO ATTEND GROUP MEETINGS TO PREVENT RELAPSE AND TO FOLLOW UP WITH PCP WITHIN ONE WEEK OF DISCHARGE. PATIENT'S SENT HCTZ AND ALBUTEROL INHALER TO PREFERRED PHARMACY. Vital Signs Temperature 97 F L 06/25/18 07:00 Pulse Rate 60 06/25/18 07:00 Respiratory Rate 18 06/25/18 07:00 Blood Pressure 147/90 06/25/18 07:00 O2 Sat by Pulse Oximetry (%)
[2018-06-25] MEDS: OLANZapine 10 MG TABLET PO SCH (21:12)
[2018-06-25] MEDS: traZODone HCL 100 MG TABLET (FP) PO SCH (21:12)
[2018-06-25] MEDS: THIAMINE HCL 100 MG TABLET (FP) PO SCH (21:12)
[2018-06-25] MEDS: LIDOCAINE PATCH REMOVAL MC SCH (21:13)
[2018-06-25] MEDS: MELATONIN 5 MG TABLETS PO PRN (21:13)
[2018-06-26] MEDS ORDERED: METHADONE HCL 10 MG TABLET ONE (03:54)
[2018-06-26] MEDS ORDERED: METHADONE HCL 40 MG DISPERSABLE TABLET ONE (03:54)
[2018-06-26] MEDS: METHADONE 120 MG, METHADONE 10 MG PO SCH (06:05)
[2018-06-26] MEDS: HYDROCHLOROTHIAZIDE 25 MG TABLET (FP) PO SCH (06:05)
[2018-06-26] MEDS: cloNIDine HCL 0.1 MG TABLET PO SCH (06:05)
[2018-06-26 06:59] VITALS: BP 143/85; PULSE 63; TEMP 97.6
--- NOTE | 2018-06-26 08:18 | PN ---
[facility] Progress Note Note: Patient is discharge today. Scripts for 30 days supply of medications(Zoloft 100 mg/day, Zyprexa 10 mg/hs, Trazadone 100 mg/hs) are electronically transmitted to [facility] at [address] [place] [address]
== END 2018-06-26 10:05 | disposition home or self-care (01) | DRG 772 ==
LOC: YASAS 14:38 → Y3W 14:39
PROVIDERS: ADMIT Neuromusculoskeletal Medicine & OMM; ATTEND Neuromusculoskeletal Medicine & OMM
PROC: HZ42ZZZ Group Counseling for Substance Abuse Treatment, Cognitive-Behavioral (ICD-10-PCS; principal; 2018-05-30)
DX: F10.20 Alcohol dependence, uncomplicated (principal); F11.20 Opioid dependence, uncomplicated; F13.20 Sedative, hypnotic or anxiolytic dependence, uncomplicated; F12.20 Cannabis dependence, uncomplicated; F17.210 Nicotine dependence, cigarettes, uncomplicated; F31.9 Bipolar disorder, unspecified; F19.24 Other psychoactive substance dependence with psychoactive substance-induced mood disorder; F19.282 Other psychoactive substance dependence with psychoactive substance-induced sleep disorder; I10 Essential (primary) hypertension; J45.909 Unspecified asthma, uncomplicated; B18.2 Chronic viral hepatitis C; R07.89 Other chest pain; R51 Headache; S09.90XA Unspecified injury of head, initial encounter; M54.5 Low back pain; Y04.0XXA Assault by unarmed brawl or fight, initial encounter; Y92.239 Unspecified place in hospital as the place of occurrence of the external cause
CPT/HCPCS: 90688; G0008; J0735

== ENCOUNTER 2018-06-17 13:58 | Emergency (ER) | payer OTHER ==
[2018-06-17 14:09] VITALS: BP 138/95; PULSE 66; TEMP 98; BMI 32.5
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
[2018-06-17 18:41] LABS: BASO % 0.6 % (0-2.0); EOS % 1.2 % (0-4.5); HEMATOCRIT 40.6 % (35.4-49); HEMOGLOBIN 14.3 GM/dL (11.7-16.9); LYMPH % 27.7 % (8-40); MCH 30.9 pg (25.7-33.7); MCHC 35.2 g/dl (32.0-35.9); MEAN CELL VOLUME 87.6 fl (80-96); MEAN PLT VOLUME 8.6 fl (7.5-11.1); MONO % 5.8 % (3.8-10.2); NEUT % 64.7 % (42.8-82.8); PLATELET COUNT 229 K/MM3 (134-434); RBC 4.64 M/mm3 (4.00-5.60); RDW 15.3 % (11.9-15.9); WHITE BLOOD COUNT 5.9 K/mm3 (4.0-10.0)
[2018-06-17 19:21] LABS: ALBUMIN 4.4 g/dl (3.4-5.0); ALK PHOS 100 U/L (45-117); ANION GAP 8 MMOL/L (8-16); BILIRUBIN,TOTAL 0.5 mg/dL (0.2-1); BLOOD UREA NITROGEN 22 mg/dL (7-18); CALCIUM 9.5 mg/dL (8.5-10.1); CHLORIDE 99 mmol/L (98-107); CO2 30 mmol/L (21-32); CREATININE 0.7 mg/dL (0.55-1.3); GLUCOSE,RANDOM 97 mg/dL (74-106); POTASSIUM 3.8 mmol/L (3.5-5.1); SGOT/AST 37 U/L (15-37); SGPT/ALT 41 U/L (13-61); SODIUM 136 mmol/L (136-145); TOT PROT 8.1 g/dl (6.4-8.2)
== END 2018-06-17 20:04 | disposition home or self-care (01) ==
LOC: JER 13:58
DX: M54.2 Cervicalgia (principal); R07.9 Chest pain, unspecified; M79.645 Pain in left finger(s); M79.642 Pain in left hand; Y04.8XXA Assault by other bodily force, initial encounter; Y93.89 Activity, other specified; Y92.238 Other place in hospital as the place of occurrence of the external cause; Y99.8 Other external cause status; J45.909 Unspecified asthma, uncomplicated; F11.20 Opioid dependence, uncomplicated; F13.20 Sedative, hypnotic or anxiolytic dependence, uncomplicated; F10.20 Alcohol dependence, uncomplicated
CPT/HCPCS: 36415; 70450-TC; 71046-TC-FY; 71111-TC-FY; 72125-TC; 73130-TC-LT-FY; 80053; 85025; 99282-25

== ENCOUNTER 2019-03-04 10:31 | Inpatient (IN) | payer OTHER ==
[2019-03-04 11:15] VITALS: BMI 30.3
--- NOTE | 2019-03-04 11:56 | HP ---
CIWA Score Nausea/Vomitin-Mild Nausea/No Vomiting Muscle Tremors: 1-None Visible, but [place] Anxiety: 1-Mildly Anxious Agitation: 1-Slight > Activity Paroxysmal Sweats: 1-Minimal Palms Moist Orientation: 1-Uncertain about Date Tacttile Disturbances: 1-Very Mild Itch/Numbness Auditory Disturbances: 0-None Visual Disturbances: 1-Very Mild Sensitivity Headache: 4-Moderately Severe CIWA-Ar Total Score: 12 - Admission Criteria OASAS Guidelines: Admission for Medically Managed Detox: Requires at least one of the followin. CIWA greater than 12 2. Seizures within the past 24 hours 3. Delirium tremens within the past 24 hours 4. Hallucinations within the past 24 hours 5. Acute intervention needed for co occurring medical disorder 6. Acute intervention needed for co occurring psychiatric disorder 7. Severe withdrawal that cannot be handled at a lower level of care (continued vomiting, continued diarrhea, abnormal vital signs) requiring intravenous medication and/or fluids 8. Admitting History and Physical - Admission Chief Complaint: " I need to go to detox and rehab too." History of Present Illness: 38 year old male with alcohol dependence and withdrawals and opioid dependence with withdrawals. He is using 10 bags to 12 bags per day intravenously. denies overdose, last used yesterday He is drinking 2 pints of vodka and Susana daily, last drank this morning. He has seizure from withdrawals 3 months ago. He has had many blackouts. He denies other substances of abuse. Before his withdrawals get worse, he wants to detox. PMH: Asthma, HCV Disease untreated, seizure disorder Psurg: Right tumor left pelvis Psych: Depression Bipolar. - Smoking History Smoking history: Never smoked Have you smoked in the past 12 months: No Aproximately how many cigarettes per day: 30 - Alcohol/Substance Use Hx Alcohol Use: No - Social History Usual Living Arrangement: Yes: Alone Do you think of yourself as: Straight/Heterosexual ADL: Independent Occupation: unemployed History of Recent Travel: No Admission [facility] Allergies/Adverse Reactions: Allergies Allergy/AdvReac Type Severity Reaction Status Date / Time aspirin Allergy Mild Rash Verified 03/04/19 10:55 - Ebola screening Have you traveled outside of the country in the last 21 days: No Have you had contact with anyone from an Ebola affected area: No Have you been sick,other than usual withdrawal symptoms: No Do you have a fever: No - Review of Systems Constitutional: Chills, Diaphoresis EENT: reports: No Symptoms Reported Respiratory: reports: No Symptoms reported Cardiac: reports: No Symptoms Reported GI: reports: Nausea, Abdominal cramping : reports: No Symptoms Reported Musculoskeletal: reports: Back Pain Patient History - Patient Medical History Hx Anemia: No Hx Asthma: Yes Hx Chronic Obstructive Pulmonary Disease (COPD): No Hx Cancer: No Hx Cardiac Disorders: No Hx Congestive Heart Failure: No Hx Hypertension: No Hx Hypercholesterolemia: No Hx Pacemaker: No HX Cerebrovascular Accident: No Hx Seizures: Yes Hx Dementia: No Hx Diabetes: No Hx Gastrointestinal Disorders: No Hx Liver Disease: No Hx Genitourinary Disorders: No Hx Sexually Transmitted Disorders: No Hx Renal Disease (ESRD): No Hx Thyroid Disease: No Hx Human Immunodeficiency Virus (HIV): No Hx Hepatitis C: Yes (no tx. for now) Hx Depression: Yes Hx Suicide Attempt: No Hx Bipolar Disorder: Yes Hx Schizophrenia: No - Patient Surgical History Past Surgical History: Yes Hx Neurologic Surgery: No Hx Cataract Extraction: No Hx Cardiac Surgery: No Hx Lung Surgery: No Hx Breast Surgery: No Hx Breast Biopsy: No Hx Abdominal Surgery: No Hx Appendectomy: No Hx Cholecystectomy: No Hx Genitourinary Surgery: No Hx Section: (n/a) Hx Orthopedic Surgery: Yes (removal of benign tumor left [address] [place] [address] [facility]) Anesthesia Reaction: No - PPD History Date: 05/29/18 Results: 0 mm - Smoking Cessation Smoking history: Never smoked Have you smoked in the past 12 months: No Aproximately how many cigarettes per day: 30 Cigars Per Day: 40 Hx Chewing Tobacco Use: No Initiated information on smoking cessation: Yes 'Breaking Loose' booklet given: 03/04/19 - Substances abused Alcohol Substance route: Oral Frequency: Daily Amount used: 6pks of beer, 2bottles of vodka Age of first use: 13 Date of last use: 03/04/19 Heroin Substance route: Injection Frequency: Daily Amount used: 8-13 bags daily Age of first use: 8 Date of last use: 03/04/19 Alprazolam (Xanax) Other (specify): 2mg Substance route: Oral Frequency: Daily Amount used: 2-5 bars Age of first use: 12 Date of last use: 03/03/19 Admission Physical Exam [facility] - Vital Signs Vital Signs: Vital Signs - 24 hr 03/04/19 11:06 Temperature 96.8 F L Pulse Rate 53 L Respiratory 14 Rate Blood Pressure 119/64 - Physical General Appearance: Yes: Mild Distress HEENTM: Yes: EOMI, Hearing grossly Normal, Normal ENT Inspection, Normocephalic , Normal Voice, FORREST, Pharynx Normal, Tm's normal Respiratory: Yes: Chest Non-Tender, Lungs Clear, Normal Breath Sounds, No Respiratory Distress, No Accessory Muscle Use Neck: Yes: No masses,lesions,Nodules, Supple, Trachea in good position Breast: Yes: Within Normal Limits Cardiology: Yes: Regular Rhythm, Regular Rate, S1, S2 Abdominal: Yes: Normal Bowel Sounds, Non Tender, Flat, Soft Genitourinary: Yes: Within Normal Limits Back: Yes: Normal Inspection Musculoskeletal: Yes: full range of Motion, Gait Steady, Pelvis Stable Extremities: Yes: Normal Capillary Refill, Normal Inspection, Normal Range of Motion, Non-Tender Neurological: Yes: roving court reporter II-XII NML intact, Fully Oriented, Alert, Motor Strength 5/5, Depressed Affect Integumentary: Yes: Normal Color, Warm Lymphatic: Yes: Within Normal Limits - Diagnostic (1) Alcohol dependence with withdrawal Current Visit: Yes Status: Acute (2) Hepatitis C Current Visit: Yes Status: Acute (3) Methadone maintenance therapy patient Current Visit: Yes Status: Acute (4) Asthma Current Visit: Yes Status: Chronic (5) Bipolar disorder Current Visit: Yes Status: Chronic (6) Nicotine dependence Current Visit: Yes Status: Chronic Screened but not Admitted - Documentation of Visit Screened but not Admitted: No Vital Signs - Vital Signs Vital signs refused: No Inpatient Rehab Admission - Rehab Decision to Admit Inpatient rehab admission?: No
[2019-03-04] MEDS ORDERED: MAGNESIUM HYDROX 2400MG/30ML ORAL SUSPENSION 30 ML CUP PO PRN (12:01)
[2019-03-04] MEDS ORDERED: IBUPROFEN 400 MG TABLET (FP) PO PRN (12:01)
[2019-03-04] MEDS ORDERED: MAG HYDROX/AL HYDROX/SIMETH 30 ML UNIT-DOSE CUP PO PRN (12:01)
[2019-03-04] MEDS ORDERED: hydrOXYzine PAMOATE 25 MG CAPSULE (FP) PO PRN (12:01)
[2019-03-04] MEDS ORDERED: ACETAMINOPHEN 325 MG TABLET (FP) PO PRN ×2 (12:01)
[2019-03-04] MEDS ORDERED: BISMUTH SUBSALICYLATE 524 MG/30 ML UD PO PRN (12:01)
[2019-03-04] MEDS ORDERED: MENTHOL/PHENOL 1 EACH UD MM PRN (12:01)
[2019-03-04] MEDS ORDERED: MAGNESIUM CITRATE 300 ML BOTTLE PO PRN (12:01)
[2019-03-04] MEDS ORDERED: ALBUTEROL SO4 8 GM HFA INHALER IH PRN (12:03)
--- NOTE | 2019-03-04 14:24 | PN ---
[facility] Progress Note Note: patient is allergic to aspirin discontinue pepto and motrin
[2019-03-04] MEDS: chlordiazePOXIDE HCL 25 MG CAPSULE PO PRN (15:25)
[2019-03-04 15:43] LABS: HEMATOCRIT 35.9 % (35.4-49); MCH 29.7 pg (25.7-33.7); MCHC 33.6 g/dl (32.0-35.9); MEAN CELL VOLUME 88.5 fl (80-96); MEAN PLT VOLUME 10.1 fl (7.5-11.1); PLATELET COUNT 240 K/MM3 (134-434); RBC 4.05 M/mm3 (4.00-5.60); RDW 14.9 % (11.9-15.9); WHITE BLOOD COUNT 4.4 K/mm3 (4.0-10.0)
[2019-03-04 16:04] LABS: ALBUMIN 3.5 g/dl (3.4-5.0); BILIRUBIN,TOTAL 0.4 mg/dL (0.2-1); BLOOD UREA NITROGEN 12.2 mg/dL (7-18); CALCIUM 8.7 mg/dL (8.5-10.1); CREATININE 0.7 mg/dL (0.55-1.3); POTASSIUM 4.2 mmol/L (3.5-5.1); TOT PROT 6.9 g/dl (6.4-8.2)
--- NOTE | 2019-03-04 16:24 | CONSULT ---
[facility] Psychiatric Consult - Data Date of interview: 03/04/19 Admission source: Jo [facility]
--- NOTE | 2019-03-04 16:27 | PN ---
[facility] Progress Note Note: Psychiatry Attending's note : Patient is approached at bedside for psychiatric evaluation. Mr Scott is noted as sedated. Slurred. Poor historian. Psychiatric interview cannot be conducted at this time. Medical staff to enter new request for psychiatric consult. Nursing staff is made aware.
[2019-03-04] MEDS: chlordiazePOXIDE HCL 25 MG CAPSULE PO SCH ×2 (17:28→22:24)
[2019-03-04] MEDS: THIAMINE HCL 100 MG TABLET (FP) PO SCH (22:24)
[2019-03-04] MEDS: MELATONIN 5 MG TABLETS PO PRN (22:24)
[2019-03-05] MEDS: chlordiazePOXIDE HCL 25 MG CAPSULE PO SCH ×4 (05:26→22:23)
[2019-03-05] MEDS ORDERED: METHADONE HCL 10 MG TABLET PO SCH (08:15)
[2019-03-05] MEDS ORDERED: METHADONE HCL 10 MG TABLET ONE (08:18)
[2019-03-05] MEDS ORDERED: METHADONE HCL 40 MG DISPERSABLE TABLET ONE (08:19)
[2019-03-05] MEDS: METHADONE 120 MG, METHADONE 20 MG PO SCH (08:28)
[2019-03-05] MEDS: PRENATAL VITAMINS W/ FOLIC ACID TABLET (FP) PO SCH (10:25)
[2019-03-05] MEDS: METHOCARBAMOL 500 MG TABLET PO PRN (10:27)
--- NOTE | 2019-03-05 10:36 | PN ---
[facility] CIWA - CIWA Score Nausea/Vomitin-Mild Nausea/No Vomiting Muscle Tremors: 3 Anxiety: 3 Agitation: 2 Paroxysmal Sweats: 2 Orientation: 1-Uncertain about Date Tacttile Disturbances: 1-Very Mild Itch/Numbness Auditory Disturbances: 0-None Visual Disturbances: 0-None Headache: 0-None Present CIWA-Ar Total Score: 13 S Progress Note (SOAP) Subjective: 38 years old male admitted on 03/04/19 for alcohol and benzo withdrawal sx management treated with librium detox regimen patient received methadone 140mg po today feeling better ambulating on hallway social with peers Objective: 03/05/19 10:39 Vital Signs Temperature 98.9 F 03/05/19 09:11 Pulse Rate 54 L 03/05/19 09:11 Respiratory Rate 16 03/05/19 09:11 Blood Pressure 111/70 03/05/19 09:11 O2 Sat by Pulse Oximetry (%) Laboratory Last Values WBC 4.4 K/mm3 (4.0-10.0) 03/04/19 12:10 RBC 4.05 M/mm3 (4.00-5.60) 03/04/19 12:10 Hgb 12.0 GM/dL (11.7-16.9) 03/04/19 12:10 Hct 35.9 % (35.4-49) 03/04/19 12:10 MCV 88.5 fl (80-96) 03/04/19 12:10 MCH 29.7 pg (25.7-33.7) 03/04/19 12:10 MCHC 33.6 g/dl (32.0-35.9) 03/04/19 12:10 RDW 14.9 % (11.9-15.9) 03/04/19 12:10 Plt Count 240 K/MM3 (134-434) 03/04/19 12:10 MPV 10.1 fl (7.5-11.1) D 03/04/19 12:10 Sodium 138 mmol/L (136-145) 03/04/19 12:10 Potassium 4.2 mmol/L (3.5-5.1) 03/04/19 12:10 Chloride 104 mmol/L (98-107) 03/04/19 12:10 Carbon Dioxide 32 mmol/L (21-32) 03/04/19 12:10 Anion Gap 3 MMOL/L (8-16) L 03/04/19 12:10 BUN 12.2 mg/dL (7-18) 03/04/19 12:10 Creatinine 0.7 mg/dL (0.55-1.3) 03/04/19 12:10 Est GFR (CKD-EPI)AfAm 136.81 03/04/19 12:10 Est GFR (CKD-EPI)NonAf 118.04 03/04/19 12:10 Random Glucose 112 mg/dL (74-106) H 03/04/19 12:10 Calcium 8.7 mg/dL (8.5-10.1) 03/04/19 12:10 Total Bilirubin 0.4 mg/dL (0.2-1) 03/04/19 12:10 AST 25 U/L (15-37) 03/04/19 12:10 ALT 29 U/L (13-61) 03/04/19 12:10 Alkaline Phosphatase 78 U/L (45-117) 03/04/19 12:10 Total Protein 6.9 g/dl (6.4-8.2) 03/04/19 12:10 Albumin 3.5 g/dl (3.4-5.0) 03/04/19 12:10 RPR Titer Nonreactive (NONREACTIVE) 03/04/19 12:10 HIV 1&2 Antibody Screen Negative 03/04/19 12:30 HIV P24 Antigen Negative 03/04/19 12:30 lab noted Assessment: 03/05/19 10:39 alcohol and benzo withdrawal sx Plan: continue librium detox regimen
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
[2019-03-05] MEDS: THIAMINE HCL 100 MG TABLET (FP) PO SCH (22:23)
[2019-03-05] MEDS: OLANZapine 10 MG TABLET PO SCH (22:23)
[2019-03-06] MEDS ORDERED: METHADONE HCL 10 MG TABLET ONE (05:04)
[2019-03-06] MEDS ORDERED: METHADONE HCL 40 MG DISPERSABLE TABLET ONE (05:05)
[2019-03-06] MEDS: chlordiazePOXIDE HCL 25 MG CAPSULE PO SCH ×4 (05:31→22:13)
[2019-03-06] MEDS: METHADONE 120 MG, METHADONE 20 MG PO SCH (05:31)
[2019-03-06] MEDS: PRENATAL VITAMINS W/ FOLIC ACID TABLET (FP) PO SCH (09:32)
[2019-03-06] MEDS: valACYclovir HCL 500 MG TABLET (FP) PO SCH (09:32)
[2019-03-06] MEDS: chlordiazePOXIDE HCL 25 MG CAPSULE PO PRN (09:32)
--- NOTE | 2019-03-06 15:32 | PN ---
[facility] CIWA - CIWA Score Nausea/Vomitin-Mild Nausea/No Vomiting Muscle Tremors: 2 Anxiety: 2 Agitation: 2 Paroxysmal Sweats: No Perspiration Orientation: 0-Oriented Tacttile Disturbances: 1-Very Mild Itch/Numbness Auditory Disturbances: 0-None Visual Disturbances: 0-None Headache: 2-Mild CIWA-Ar Total Score: 10 S Progress Note (SOAP) Subjective: alert,irritable,anxious,interrupted sleep,pain in the body Objective: 03/06/19 15:31 Vital Signs Temperature 98.4 F 03/06/19 13:23 Pulse Rate 55 L 03/06/19 13:23 Respiratory Rate 18 03/06/19 13:23 Blood Pressure 138/88 03/06/19 13:23 O2 Sat by Pulse Oximetry (%) 03/06/19 15:31 Laboratory Last Values WBC 4.4 K/mm3 (4.0-10.0) 03/04/19 12:10 RBC 4.05 M/mm3 (4.00-5.60) 03/04/19 12:10 Hgb 12.0 GM/dL (11.7-16.9) 03/04/19 12:10 Hct 35.9 % (35.4-49) 03/04/19 12:10 MCV 88.5 fl (80-96) 03/04/19 12:10 MCH 29.7 pg (25.7-33.7) 03/04/19 12:10 MCHC 33.6 g/dl (32.0-35.9) 03/04/19 12:10 RDW 14.9 % (11.9-15.9) 03/04/19 12:10 Plt Count 240 K/MM3 (134-434) 03/04/19 12:10 MPV 10.1 fl (7.5-11.1) D 03/04/19 12:10 Sodium 138 mmol/L (136-145) 03/04/19 12:10 Potassium 4.2 mmol/L (3.5-5.1) 03/04/19 12:10 Chloride 104 mmol/L (98-107) 03/04/19 12:10 Carbon Dioxide 32 mmol/L (21-32) 03/04/19 12:10 Anion Gap 3 MMOL/L (8-16) L 03/04/19 12:10 BUN 12.2 mg/dL (7-18) 03/04/19 12:10 Creatinine 0.7 mg/dL (0.55-1.3) 03/04/19 12:10 Est GFR (CKD-EPI)AfAm 136.81 03/04/19 12:10 Est GFR (CKD-EPI)NonAf 118.04 03/04/19 12:10 Random Glucose 112 mg/dL (74-106) H 03/04/19 12:10 Calcium 8.7 mg/dL (8.5-10.1) 03/04/19 12:10 Total Bilirubin 0.4 mg/dL (0.2-1) 03/04/19 12:10 AST 25 U/L (15-37) 03/04/19 12:10 ALT 29 U/L (13-61) 03/04/19 12:10 Alkaline Phosphatase 78 U/L (45-117) 03/04/19 12:10 Total Protein 6.9 g/dl (6.4-8.2) 03/04/19 12:10 Albumin 3.5 g/dl (3.4-5.0) 03/04/19 12:10 RPR Titer Nonreactive (NONREACTIVE) 03/04/19 12:10 HIV 1&2 Antibody Screen Negative 03/04/19 12:30 HIV P24 Antigen Negative 03/04/19 12:30 Assessment: 03/06/19 15:32 withdrawal symptom Plan: continue detox librium regimen,fasting glucose in am
[2019-03-06] MEDS: OLANZapine 10 MG TABLET PO SCH (22:12)
[2019-03-06] MEDS: THIAMINE HCL 100 MG TABLET (FP) PO SCH (22:12)
[2019-03-07] MEDS ORDERED: chlordiazePOXIDE HCL 10 MG CAPSULE PO PRN
[2019-03-07] MEDS ORDERED: METHADONE HCL 10 MG TABLET ONE (04:37)
[2019-03-07] MEDS ORDERED: METHADONE HCL 40 MG DISPERSABLE TABLET ONE (04:37)
[2019-03-07] MEDS: METHADONE 120 MG, METHADONE 20 MG PO SCH (05:51)
[2019-03-07] MEDS: chlordiazePOXIDE HCL 10 MG CAPSULE PO SCH ×4 (05:51→22:17)
[2019-03-07] MEDS: METHOCARBAMOL 500 MG TABLET PO PRN (05:52)
[2019-03-07] MEDS: valACYclovir HCL 500 MG TABLET (FP) PO SCH (10:08)
[2019-03-07] MEDS: PRENATAL VITAMINS W/ FOLIC ACID TABLET (FP) PO SCH (10:08)
--- NOTE | 2019-03-07 13:49 | PN ---
S CIWA - CIWA Score Nausea/Vomitin-No Nausea/No Vomiting Muscle Tremors: None Anxiety: 3 Agitation: 0-Normal Activity Paroxysmal Sweats: 3 Orientation: 0-Oriented Tacttile Disturbances: 0-None Auditory Disturbances: 0-None Visual Disturbances: 0-None Headache: 2-Mild CIWA-Ar Total Score: 8 BHS Progress Note (SOAP) Subjective: c/o sweats, headache, and anxiety. Objective: 03/07/19 13:47 Vital Signs 03/07/19 03/07/19 03/07/19 06:18 09:41 13:22 Temperature 98.1 F 96.7 F L 96.9 F L Pulse Rate 68 78 75 Respiratory 18 18 18 Rate Blood Pressure 127/91 126/89 108/68 Lab Results WBC 4.4 K/mm3 (4.0-10.0) 03/04/19 12:10 RBC 4.05 M/mm3 (4.00-5.60) 03/04/19 12:10 Hgb 12.0 GM/dL (11.7-16.9) 03/04/19 12:10 Hct 35.9 % (35.4-49) 03/04/19 12:10 MCV 88.5 fl (80-96) 03/04/19 12:10 MCHC 33.6 g/dl (32.0-35.9) 03/04/19 12:10 RDW 14.9 % (11.9-15.9) 03/04/19 12:10 Plt Count 240 K/MM3 (134-434) 03/04/19 12:10 Sodium 138 mmol/L (136-145) 03/04/19 12:10 Potassium 4.2 mmol/L (3.5-5.1) 03/04/19 12:10 Chloride 104 mmol/L (98-107) 03/04/19 12:10 Carbon Dioxide 32 mmol/L (21-32) 03/04/19 12:10 Anion Gap 3 MMOL/L (8-16) L 03/04/19 12:10 BUN 12.2 mg/dL (7-18) 03/04/19 12:10 Creatinine 0.7 mg/dL (0.55-1.3) 03/04/19 12:10 Random Glucose 112 mg/dL (74-106) H 03/04/19 12:10 Calcium 8.7 mg/dL (8.5-10.1) 03/04/19 12:10 Labs noted. Assessment: 03/07/19 13:47 AOX3, in no acute respiratory distress. Full rom, ambulating in the unit. Withdrawal symptoms. Plan: continue detox.
[2019-03-07] MEDS: OLANZapine 10 MG TABLET PO SCH (22:17)
[2019-03-07] MEDS: THIAMINE HCL 100 MG TABLET (FP) PO SCH (22:17)
[2019-03-07] MEDS: MELATONIN 5 MG TABLETS PO PRN (22:18)
[2019-03-08] MEDS ORDERED: METHADONE HCL 10 MG TABLET ONE (03:32)
[2019-03-08] MEDS ORDERED: METHADONE HCL 40 MG DISPERSABLE TABLET ONE (03:33)
[2019-03-08] MEDS: METHADONE 120 MG, METHADONE 20 MG PO SCH (05:21)
[2019-03-08] MEDS: chlordiazePOXIDE HCL 10 MG CAPSULE PO SCH ×2 (05:21→17:42)
[2019-03-08] MEDS: METHOCARBAMOL 500 MG TABLET PO PRN ×2 (05:22→10:24)
[2019-03-08] MEDS: PRENATAL VITAMINS W/ FOLIC ACID TABLET (FP) PO SCH (10:23)
[2019-03-08] MEDS: valACYclovir HCL 500 MG TABLET (FP) PO SCH (10:23)
--- NOTE | 2019-03-08 14:28 | PN ---
S CIWA - CIWA Score Nausea/Vomitin-No Nausea/No Vomiting Muscle Tremors: 2 Anxiety: 2 Agitation: 2 Paroxysmal Sweats: No Perspiration Orientation: 0-Oriented Tacttile Disturbances: 0-None Auditory Disturbances: 0-None Visual Disturbances: 0-None Headache: 0-None Present CIWA-Ar Total Score: 6 BHS Progress Note (SOAP) Subjective: 38 years old male admitted on 03/04/19 for alcohol and benzo withdrawal sx management treated with librium detox regimen feeling better less tremor mild anxiety sleep better at night Objective: 03/08/19 14:27 Vital Signs Temperature 97.1 F L 03/08/19 13:14 Pulse Rate 71 03/08/19 13:14 Respiratory Rate 18 03/08/19 13:14 Blood Pressure 124/78 03/08/19 13:14 O2 Sat by Pulse Oximetry (%) Laboratory Last Values WBC 4.4 K/mm3 (4.0-10.0) 03/04/19 12:10 RBC 4.05 M/mm3 (4.00-5.60) 03/04/19 12:10 Hgb 12.0 GM/dL (11.7-16.9) 03/04/19 12:10 Hct 35.9 % (35.4-49) 03/04/19 12:10 MCV 88.5 fl (80-96) 03/04/19 12:10 MCH 29.7 pg (25.7-33.7) 03/04/19 12:10 MCHC 33.6 g/dl (32.0-35.9) 03/04/19 12:10 RDW 14.9 % (11.9-15.9) 03/04/19 12:10 Plt Count 240 K/MM3 (134-434) 03/04/19 12:10 MPV 10.1 fl (7.5-11.1) D 03/04/19 12:10 Sodium 138 mmol/L (136-145) 03/04/19 12:10 Potassium 4.2 mmol/L (3.5-5.1) 03/04/19 12:10 Chloride 104 mmol/L (98-107) 03/04/19 12:10 Carbon Dioxide 32 mmol/L (21-32) 03/04/19 12:10 Anion Gap 3 MMOL/L (8-16) L 03/04/19 12:10 BUN 12.2 mg/dL (7-18) 03/04/19 12:10 Creatinine 0.7 mg/dL (0.55-1.3) 03/04/19 12:10 Est GFR (CKD-EPI)AfAm 136.81 03/04/19 12:10 Est GFR (CKD-EPI)NonAf 118.04 03/04/19 12:10 Random Glucose 112 mg/dL (74-106) H 03/04/19 12:10 Fasting Glucose 117 mg/dL (74-106) H 03/07/19 07:50 Calcium 8.7 mg/dL (8.5-10.1) 03/04/19 12:10 Total Bilirubin 0.4 mg/dL (0.2-1) 03/04/19 12:10 AST 25 U/L (15-37) 03/04/19 12:10 ALT 29 U/L (13-61) 03/04/19 12:10 Alkaline Phosphatase 78 U/L (45-117) 03/04/19 12:10 Total Protein 6.9 g/dl (6.4-8.2) 03/04/19 12:10 Albumin 3.5 g/dl (3.4-5.0) 03/04/19 12:10 RPR Titer Nonreactive (NONREACTIVE) 03/04/19 12:10 HIV 1&2 Antibody Screen Negative 03/04/19 12:30 HIV P24 Antigen Negative 03/04/19 12:30 lab noted Assessment: 03/08/19 14:28 alcohol and benzo withdrawal sx Plan: continue librium detox regimen
[2019-03-08] MEDS: THIAMINE HCL 100 MG TABLET (FP) PO SCH (21:40)
[2019-03-08] MEDS: OLANZapine 10 MG TABLET PO SCH (21:40)
[2019-03-08] MEDS: MELATONIN 5 MG TABLETS PO PRN (21:41)
[2019-03-09] MEDS ORDERED: METHADONE HCL 40 MG DISPERSABLE TABLET ONE (04:06)
[2019-03-09] MEDS ORDERED: METHADONE HCL 10 MG TABLET ONE (04:06)
[2019-03-09] MEDS ORDERED: chlordiazePOXIDE HCL 10 MG CAPSULE PO ONE (05:00)
[2019-03-09] MEDS: METHADONE 120 MG, METHADONE 20 MG PO SCH (05:36)
[2019-03-09 09:25] VITALS: BP 122/74; PULSE 96; TEMP 99.2
[2019-03-09] MEDS: PRENATAL VITAMINS W/ FOLIC ACID TABLET (FP) PO SCH (10:29)
[2019-03-09] MEDS: valACYclovir HCL 500 MG TABLET (FP) PO SCH (10:29)
[2019-03-09] MEDS: METHOCARBAMOL 500 MG TABLET PO PRN (10:29)
--- NOTE | 2019-03-09 15:24 | DS ---
[facility] Detox Discharge Summary Admission Date: 03/04/19 Discharge Date: 03/09/19 - History Present History: Alcohol Dependence, Sedative Dependence Additional Comments: 38 years old male admitted on 03/04/19 for alcohol and benzo withdrawal sx management treated with librium detox regimen patient is alert oriented x 3 respiratory clear lung bilaterally on auscultation abdomen soft round obese no rebound tenderness skin warm and dry - Physical Exam Results Vital Signs: Vital Signs Temperature 99.2 F 03/09/19 09:24 Pulse Rate 96 H 03/09/19 09:24 Respiratory Rate 20 03/09/19 09:24 Blood Pressure 122/74 03/09/19 09:24 O2 Sat by Pulse Oximetry (%) Pertinent Admission Physical Exam Findings: alcohol and benzo withdrawal sx Laboratory Last Values WBC 4.4 K/mm3 (4.0-10.0) 03/04/19 12:10 RBC 4.05 M/mm3 (4.00-5.60) 03/04/19 12:10 Hgb 12.0 GM/dL (11.7-16.9) 03/04/19 12:10 Hct 35.9 % (35.4-49) 03/04/19 12:10 MCV 88.5 fl (80-96) 03/04/19 12:10 MCH 29.7 pg (25.7-33.7) 03/04/19 12:10 MCHC 33.6 g/dl (32.0-35.9) 03/04/19 12:10 RDW 14.9 % (11.9-15.9) 03/04/19 12:10 Plt Count 240 K/MM3 (134-434) 03/04/19 12:10 MPV 10.1 fl (7.5-11.1) D 03/04/19 12:10 Sodium 138 mmol/L (136-145) 03/04/19 12:10 Potassium 4.2 mmol/L (3.5-5.1) 03/04/19 12:10 Chloride 104 mmol/L (98-107) 03/04/19 12:10 Carbon Dioxide 32 mmol/L (21-32) 03/04/19 12:10 Anion Gap 3 MMOL/L (8-16) L 03/04/19 12:10 BUN 12.2 mg/dL (7-18) 03/04/19 12:10 Creatinine 0.7 mg/dL (0.55-1.3) 03/04/19 12:10 Est GFR (CKD-EPI)AfAm 136.81 03/04/19 12:10 Est GFR (CKD-EPI)NonAf 118.04 03/04/19 12:10 Random Glucose 112 mg/dL (74-106) H 03/04/19 12:10 Fasting Glucose 117 mg/dL (74-106) H 03/07/19 07:50 Calcium 8.7 mg/dL (8.5-10.1) 03/04/19 12:10 Total Bilirubin 0.4 mg/dL (0.2-1) 03/04/19 12:10 AST 25 U/L (15-37) 03/04/19 12:10 ALT 29 U/L (13-61) 03/04/19 12:10 Alkaline Phosphatase 78 U/L (45-117) 03/04/19 12:10 Total Protein 6.9 g/dl (6.4-8.2) 03/04/19 12:10 Albumin 3.5 g/dl (3.4-5.0) 03/04/19 12:10 RPR Titer Nonreactive (NONREACTIVE) 03/04/19 12:10 HIV 1&2 Antibody Screen Negative 03/04/19 12:30 HIV P24 Antigen Negative 03/04/19 12:30 lab noted - Treatment Hospital Course: Detox Protocol Followed, Detoxed Safely, Responded well, Discharged Condition Good, Rehab Referral Accepted Patient has Accepted a Rehab Referral to: [facility] - Medication Discharge Medications: Ambulatory Orders Clonidine HCl 0.2 mg PO DAILY 05/27/18 Albuterol Sulfate Inhaler - [Ventolin HFA Inhaler -] 2 inh PO Q4H PRN #1 inhaler 06/25/18 Sertraline HCl [Zoloft] 100 mg PO DAILY #30 tablet 06/26/18 traZODone HCL [Desyrel -] 100 mg PO HS #30 tablet 06/26/18 - Diagnosis (1) Alcohol dependence with withdrawal Status: Acute Qualifiers: Complication of substance-induced condition: uncomplicated Qualified Code(s ): F10.230 - Alcohol dependence with withdrawal, uncomplicated (2) Hepatitis C Status: Chronic Qualifiers: Viral hepatitis chronicity: carrier Qualified Code(s): B18.2 - Chronic viral hepatitis C (3) Methadone maintenance therapy patient Status: Chronic (4) Sedative hypnotic or anxiolytic dependence Status: Acute (5) Substance induced mood disorder Status: Suspected (6) Asthma Status: Chronic Qualifiers: Asthma severity: mild Asthma persistence: intermittent Asthma complication type: with status asthmaticus Qualified Code(s): J45.22 - Mild intermittent asthma with status asthmaticus (7) Nicotine dependence Status: Acute Qualifiers: Nicotine product type: cigarettes Substance use status: in withdrawal Qualified Code(s): F17.213 - Nicotine dependence, cigarettes, with withdrawal (8) Opioid dependence on agonist therapy Status: Chronic - AMA Did Patient Leave Against Medical Advice: No CIWA Score - CIWA Score Nausea/Vomitin-No Nausea/No Vomiting Muscle Tremors: 1-None Visible, but [place] Anxiety: 2 Agitation: 0-Normal Activity Paroxysmal Sweats: No Perspiration Orientation: 0-Oriented Tacttile Disturbances: 0-None Auditory Disturbances: 0-None Visual Disturbances: 0-None Headache: 0-None Present CIWA-Ar Total Score: 3
== END 2019-03-09 13:35 | disposition other institution (70) | DRG 773 ==
LOC: YASAS 10:31 → Y3N 12:36
PROVIDERS: ADMIT Allergy & Immunology; ATTEND Allergy & Immunology
PROC: HZ2ZZZZ Detoxification Services for Substance Abuse Treatment (ICD-10-PCS; principal; 2019-03-04)
DX: F10.230 Alcohol dependence with withdrawal, uncomplicated (principal); F13.230 Sedative, hypnotic or anxiolytic dependence with withdrawal, uncomplicated; F11.20 Opioid dependence, uncomplicated; F17.213 Nicotine dependence, cigarettes, with withdrawal; F19.24 Other psychoactive substance dependence with psychoactive substance-induced mood disorder; F25.9 Schizoaffective disorder, unspecified; F31.9 Bipolar disorder, unspecified; J45.22 Mild intermittent asthma with status asthmaticus; G40.909 Epilepsy, unspecified, not intractable, without status epilepticus; B18.2 Chronic viral hepatitis C; Z88.6 Allergy status to analgesic agent
CPT/HCPCS: 36415; 80053; 82947; 85027; 86593; 87389

== ENCOUNTER 2019-07-20 11:01 | Inpatient (IN) | payer OTHER ==
--- NOTE | 2019-07-20 11:20 | BHS.RME ---
Substance Use & Tx History - Substance Use History Alcohol Substance amount: 4 pints vodka Frequency of use: Daily Substance route: Oral Date of Last Use: 07/19/19 (8pm) Opiates (Heroin) Substance amount: 1 bundle Frequency of use: Daily Substance route: Injection (ex: intravenous or skin popping) Date of Last Use: 07/19/19 Benzodiazepines Substance amount: 6 xanax pills Frequency of use: Daily Substance route: Oral Date of Last Use: 04/04/19 COWS - Scale Resting Pulse: 0= [place] 80 or Below Sweatin= No chills or Flushing Restless Observation: 1= Difficult to Sit Still Pupil Size: 0= Normal to Room Light Bone or Joint Aches: 1= Mild Discomfort Runny Nose/ Eye Tearin= Nasal Congestion GI Upset > 30mins: 1= Stomach Cramp Tremor Observation: 1= Tremor [place], Not Seen Yawning Observation: 1= 1-2x During Session Anxiety or Irritability: 1=Feels Anxious/Irritable (not yet in withdrawal due to use this morning) Goose Flesh Skin: 0=Smooth Skin COWS Score: 7 CIWA Nausea/Vomitin-No Nausea/No Vomiting Muscle Tremors: 1-None Visible, but [place] Anxiety: 0-No Anxiety, at Ease Agitation: 0-Normal Activity Paroxysmal Sweats: No Perspiration Orientation: 0-Oriented Tacttile Disturbances: 0-None Auditory Disturbances: 0-None Visual Disturbances: 0-None Headache: 0-None Present (not yet in withdrawal drank this morning) CIWA-Ar Total Score: 1
--- NOTE | 2019-07-20 13:35 | HP ---
COWS - Scale Resting Pulse: 0= [place] 80 or Below Sweatin= No chills or Flushing Restless Observation: 1= Difficult to Sit Still Pupil Size: 0= Normal to Room Light Bone or Joint Aches: 1= Mild Discomfort Runny Nose/ Eye Tearin= Nasal Congestion GI Upset > 30mins: 1= Stomach Cramp Tremor Observation: 1= Tremor [place], Not Seen Yawning Observation: 1= 1-2x During Session Anxiety or Irritability: 1=Feels Anxious/Irritable (not yet in withdrawal due to use this morning) Goose Flesh Skin: 0=Smooth Skin COWS Score: 7 CIWA Score Nausea/Vomitin-No Nausea/No Vomiting Muscle Tremors: 1-None Visible, but [place] Anxiety: 0-No Anxiety, at Ease Agitation: 0-Normal Activity Paroxysmal Sweats: No Perspiration Orientation: 0-Oriented Tacttile Disturbances: 0-None Auditory Disturbances: 0-None Visual Disturbances: 0-None Headache: 0-None Present (not yet in withdrawal drank this morning) CIWA-Ar Total Score: 1 - Admission Criteria OASAS Guidelines: Admission for Medically Managed Detox: Requires at least one of the followin. CIWA greater than 12 2. Seizures within the past 24 hours 3. Delirium tremens within the past 24 hours 4. Hallucinations within the past 24 hours 5. Acute intervention needed for co occurring medical disorder 6. Acute intervention needed for co occurring psychiatric disorder 7. Severe withdrawal that cannot be handled at a lower level of care (continued vomiting, continued diarrhea, abnormal vital signs) requiring intravenous medication and/or fluids 8. Admitting History and Physical - Admission Chief Complaint: Mr. Scott is a 38 yo man stating " I want to get back on track", from heroin, alcohol and benzos. History of Present Illness: Mr. Scott is a 38 yo man stating " I want to get back on track", from heroin, alcohol and benzos. He was last here in February 2019. He states he fell one week ago, minor facial trauma, no LOC. Awoke 4 days ago with left wrist drop. PMH: Seizure disorder due to benzo use/withdrawal, Hep C, wrist drop years ago/resolved PSH: tumor Psych: depression, bipolar, noncompliant SOC:homeless Legal: multiple open cases: drug possession with intent to sell, mandate to tx one week ago Alcohol: 4 pints Vodka, began age 10, last 07/18: 8pm. Seizure 4 months ago Heroin: one bundle per day, IV, began age 13y, last use yesterday. No OD. On Methadone 140 mg, [facility] Nicotine: 1.5 ppd, began age 9y Benzo: Xanax 2 mg x 6 tabs daily, began age 14y, last use yesterday Limitations to Obtaining History: Intoxication - Smoking History Smoking history: Current every day smoker Have you smoked in the past 12 months: No Aproximately how many cigarettes per day: 30 - Alcohol/Substance Use Hx Alcohol Use: No - Social History ADL: Independent Occupation: unemployed History of Recent Travel: No Admission [facility] Allergies/Adverse Reactions: Allergies Allergy/AdvReac Type Severity Reaction Status Date / Time aspirin Allergy Mild Rash Verified 03/04/19 10:55 - Ebola screening Have you traveled outside of the country in the last 21 days: No Have you been sick,other than usual withdrawal symptoms: No Do you have a fever: No - Review of Systems Constitutional: Unexplained wgt Loss (20 lb loss in 4 mos) EENT: reports: No Symptoms Reported Respiratory: reports: No Symptoms reported Cardiac: reports: No Symptoms Reported GI: reports: Diarrhea, Nausea : reports: No Symptoms Reported Musculoskeletal: reports: No Symptoms Reported Integumentary: reports: No Symptoms Reported Neuro: reports: Headache Endocrine: reports: No Symptoms Reported Hematology: reports: No Symptoms Reported Psychiatric: reports: Depressed Patient History - Patient Medical History Hx Anemia: No Hx Asthma: Yes Hx Chronic Obstructive Pulmonary Disease (COPD): No Hx Cancer: No Hx Cardiac Disorders: No Hx Congestive Heart Failure: No Hx Hypertension: No Hx Hypercholesterolemia: No Hx Pacemaker: No HX Cerebrovascular Accident: No Hx Seizures: Yes (LAST SEIZURE WAS 2 WKS AGO) Hx Dementia: No Hx Diabetes: No Hx Gastrointestinal Disorders: No Hx Liver Disease: No Hx Genitourinary Disorders: No Hx Sexually Transmitted Disorders: No Hx Renal Disease (ESRD): No Hx Thyroid Disease: No Hx Human Immunodeficiency Virus (HIV): No Hx Hepatitis C: Yes (no tx. for now) Hx Depression: Yes Hx Suicide Attempt: No Hx Bipolar Disorder: Yes Hx Schizophrenia: No - Patient Surgical History Past Surgical History: Yes Hx Neurologic Surgery: No Hx Cataract Extraction: No Hx Cardiac Surgery: No Hx Lung Surgery: No Hx Breast Surgery: No Hx Breast Biopsy: No Hx Abdominal Surgery: No Hx Appendectomy: No Hx Cholecystectomy: No Hx Genitourinary Surgery: No Hx Section: (n/a) Hx Orthopedic Surgery: Yes (removal of benign tumor left pelvis in 1997 at [facility]) Anesthesia Reaction: No - PPD History Date: 05/29/18 Results: 0 mm - Smoking Cessation Smoking history: Current every day smoker Have you smoked in the past 12 months: No Aproximately how many cigarettes per day: 30 Cigars Per Day: 40 Hx Chewing Tobacco Use: No Initiated information on smoking cessation: Yes 'Breaking Loose' booklet given: 07/20/19 - Substances abused Alcohol Substance route: Oral Amount used: 4 pints Vodka Age of first use: 10 Date of last use: 07/19/19 Heroin Substance route: Injection Amount used: one bundle Age of first use: 13 Date of last use: 07/19/19 Alprazolam (Xanax) Amount used: 6tabs of 2 mg each Age of first use: 14 Date of last use: 06/20/19 Admission Physical Exam S - Physical General Appearance: Yes: Intoxicated HEENTM: Yes: Hearing grossly Normal, Normocephalic, Normal Voice Respiratory: Yes: Lungs Clear Neck: Yes: Within Normal Limits Breast: Yes: Breast Exam Deferred Cardiology: Yes: Regular Rate, S1, S2 Abdominal: Yes: Non Tender, Flat, Soft, Decreased BS Back: Yes: Normal Inspection Musculoskeletal: Yes: Within Normal Limits Extremities: Yes: Normal Range of Motion Neurological: Yes: Alert, Other (left hand wrist drop, finger drop, loss of light touch left hand web space) Integumentary: Yes: Track De Guzman (clean right wrist. Multiple tattoos) - Diagnostic (1) Alcohol dependence with withdrawal, uncomplicated Current Visit: Yes Status: Acute (2) Nicotine dependence Current Visit: Yes Status: Acute Qualifiers: Nicotine product type: cigarettes Substance use status: in withdrawal Qualified Code(s): F17.213 - Nicotine dependence, cigarettes, with withdrawal (3) Bipolar disorder Current Visit: Yes Status: Chronic (4) Hepatitis C Current Visit: No Status: Chronic Qualifiers: Viral hepatitis chronicity: carrier Qualified Code(s): B18.2 - Chronic viral hepatitis C (5) Wrist drop, left Current Visit: Yes Status: Acute Cleared for Admission S - Detox or Rehab [facility] Level of Care: Medically Managed Detox Regimen/Protocol: Librium Breathalyzer - Breathalyzer Breathalyzer: 0.08 Urine Drug Screen - Test Device Lot number: [id number] Expiration date: 12/27/20 - Control Is test valid?: Yes - Results Drug screen NEGATIVE: No Urine drug screen results: FEN-Fentanyl, MOP-Opiates, MTD-Methadone, BZO- Benzodiazepines Inpatient Rehab Admission - Rehab Decision to Admit Inpatient rehab admission?: No
[2019-07-20] MEDS ORDERED: MAGNESIUM CITRATE 300 ML BOTTLE PO PRN (13:53)
[2019-07-20] MEDS ORDERED: NICOTINE POLACRILEX 2 MG GUM BUC PRN (13:53)
[2019-07-20] MEDS ORDERED: MAGNESIUM HYDROX 2400MG/30ML ORAL SUSPENSION 30 ML CUP PO PRN (13:53)
[2019-07-20] MEDS ORDERED: MENTHOL/PHENOL 1 EACH UD MM PRN (13:53)
[2019-07-20] MEDS ORDERED: ACETAMINOPHEN 325 MG TABLET (FP) PO PRN ×2 (13:53)
[2019-07-20] MEDS ORDERED: MAG HYDROX/AL HYDROX/SIMETH 30 ML UNIT-DOSE CUP PO PRN (13:53)
[2019-07-20] MEDS ORDERED: ONDANSETRON *ODT* 4 MG TABLET SL ONE (13:53)
[2019-07-20 14:06] VITALS: BMI 29.0
[2019-07-20] MEDS: chlordiazePOXIDE HCL 25 MG CAPSULE PO PRN (15:18)
[2019-07-20] MEDS: NICOTINE 21 MG/24 HOURS TOPICAL PATCH TD SCH (15:20)
[2019-07-20] MEDS: hydrOXYzine PAMOATE 25 MG CAPSULE (FP) PO SCH ×3 (15:26→22:38)
[2019-07-20] MEDS: chlordiazePOXIDE HCL 25 MG CAPSULE PO SCH ×2 (18:08→22:31)
[2019-07-20 20:53] LABS: HEMATOCRIT 41.8 % (35.4-49); HEMOGLOBIN 14.1 GM/dL (11.7-16.9); MCH 29.9 pg (25.7-33.7); MCHC 33.8 g/dl (32.0-35.9); MEAN CELL VOLUME 88.6 fl (80-96); MEAN PLT VOLUME 9.7 fl (7.5-11.1); PLATELET COUNT 206 K/MM3 (134-434); RBC 4.71 M/mm3 (4.00-5.60); RDW 14.7 % (11.9-15.9); WHITE BLOOD COUNT 5.3 K/mm3 (4.0-10.0)
[2019-07-20 21:12] LABS: BILIRUBIN,TOTAL 0.6 mg/dL (0.2-1); BLOOD UREA NITROGEN 12.3 mg/dL (7-18); CALCIUM 9.2 mg/dL (8.5-10.1); CREATININE 0.9 mg/dL (0.55-1.3); POTASSIUM 3.7 mmol/L (3.5-5.1); TOT PROT 7.8 g/dl (6.4-8.2)
[2019-07-20] MEDS: THIAMINE HCL 100 MG TABLET (FP) PO SCH (22:31)
[2019-07-20] MEDS: MELATONIN 5 MG TABLETS PO SCH (22:38)
[2019-07-21] MEDS: hydrOXYzine PAMOATE 25 MG CAPSULE (FP) PO SCH ×5 (05:53→22:23)
[2019-07-21] MEDS: chlordiazePOXIDE HCL 25 MG CAPSULE PO SCH ×4 (05:53→22:20)
[2019-07-21] MEDS: METHOCARBAMOL 500 MG TABLET PO PRN (05:55)
[2019-07-21] MEDS ORDERED: METHADONE HCL 10 MG TABLET PO ONE (08:44)
[2019-07-21] MEDS ORDERED: METHADONE 120 MG, METHADONE 20 MG PO ONE (09:15)
[2019-07-21] MEDS ORDERED: METHADONE HCL 10 MG TABLET ONE (09:22)
[2019-07-21] MEDS ORDERED: METHADONE HCL 40 MG DISPERSABLE TABLET ONE (09:23)
[2019-07-21] MEDS: PRENATAL VITAMINS W/ FOLIC ACID TABLET (FP) PO SCH (09:28)
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
[2019-07-21] MEDS: NICOTINE 21 MG/24 HOURS TOPICAL PATCH TD SCH (10:52)
[2019-07-21] MEDS: cloNIDine HCL 0.1 MG TABLET PO SCH ×2 (10:53→22:20)
--- NOTE | 2019-07-21 11:09 | PN ---
[facility] CIWA - CIWA Score Nausea/Vomitin-Mild Nausea/No Vomiting Muscle Tremors: 2 Anxiety: 2 Agitation: 2 Paroxysmal Sweats: No Perspiration Orientation: 0-Oriented Tacttile Disturbances: 1-Very Mild Itch/Numbness Auditory Disturbances: 0-None Visual Disturbances: 0-None Headache: 2-Mild CIWA-Ar Total Score: 10 S Progress Note (SOAP) Subjective: alert,irritable,anxious,interrupted sleep,nausea,pain in the body and back Objective: 07/21/19 11:07 Vital Signs Temperature 98.1 F 07/21/19 08:48 Pulse Rate 66 07/21/19 08:48 Respiratory Rate 17 07/21/19 08:48 Blood Pressure 133/88 07/21/19 08:48 O2 Sat by Pulse Oximetry (%) 98 07/21/19 05:43 Laboratory Last Values WBC 5.3 K/mm3 (4.0-10.0) 07/20/19 14:00 RBC 4.71 M/mm3 (4.00-5.60) 07/20/19 14:00 Hgb 14.1 GM/dL (11.7-16.9) 07/20/19 14:00 Hct 41.8 % (35.4-49) D 07/20/19 14:00 MCV 88.6 fl (80-96) 07/20/19 14:00 MCH 29.9 pg (25.7-33.7) 07/20/19 14:00 MCHC 33.8 g/dl (32.0-35.9) 07/20/19 14:00 RDW 14.7 % (11.9-15.9) 07/20/19 14:00 Plt Count 206 K/MM3 (134-434) 07/20/19 14:00 MPV 9.7 fl (7.5-11.1) 07/20/19 14:00 Sodium 137 mmol/L (136-145) 07/20/19 14:00 Potassium 3.7 mmol/L (3.5-5.1) 07/20/19 14:00 Chloride 100 mmol/L (98-107) 07/20/19 14:00 Carbon Dioxide 30 mmol/L (21-32) 07/20/19 14:00 Anion Gap 7 MMOL/L (8-16) L 07/20/19 14:00 BUN 12.3 mg/dL (7-18) 07/20/19 14:00 Creatinine 0.9 mg/dL (0.55-1.3) 07/20/19 14:00 Est GFR (CKD-EPI)AfAm 123.39 07/20/19 14:00 Est GFR (CKD-EPI)NonAf 106.46 07/20/19 14:00 Random Glucose 89 mg/dL (74-106) 07/20/19 14:00 Calcium 9.2 mg/dL (8.5-10.1) 07/20/19 14:00 Total Bilirubin 0.6 mg/dL (0.2-1) 07/20/19 14:00 AST 33 U/L (15-37) 07/20/19 14:00 ALT 44 U/L (13-61) 07/20/19 14:00 Alkaline Phosphatase 83 U/L (45-117) 07/20/19 14:00 Total Protein 7.8 g/dl (6.4-8.2) 07/20/19 14:00 Albumin 4.0 g/dl (3.4-5.0) 07/20/19 14:00 Syphilis Serology Non-reactive (NONREACTIVE) 07/20/19 14:00 HIV Ag/Ab Combo Qual Negative (NEGATIVE) 07/20/19 14:00 Assessment: 07/21/19 11:08 ithdrawal symptom Plan: continue detox librium regimen,continue methadone maintenance 140 mgs/day
[2019-07-21] MEDS: OLANZapine 10 MG TABLET PO SCH (11:27)
[2019-07-21] MEDS: chlordiazePOXIDE HCL 25 MG CAPSULE PO PRN (13:43)
[2019-07-21] MEDS: SUVOREXANT 10 MG TABLET PO PRN (22:20)
[2019-07-21] MEDS: THIAMINE HCL 100 MG TABLET (FP) PO SCH (22:22)
[2019-07-21] MEDS: MELATONIN 5 MG TABLETS PO SCH (22:24)
[2019-07-22] MEDS ORDERED: METHADONE HCL 40 MG DISPERSABLE TABLET ONE (04:42)
[2019-07-22] MEDS ORDERED: METHADONE HCL 10 MG TABLET ONE (04:42)
[2019-07-22] MEDS: METHADONE 120 MG, METHADONE 20 MG PO SCH (05:30)
[2019-07-22] MEDS: chlordiazePOXIDE HCL 25 MG CAPSULE PO SCH ×4 (05:30→22:10)
[2019-07-22] MEDS: hydrOXYzine PAMOATE 25 MG CAPSULE (FP) PO SCH ×5 (05:30→22:03)
[2019-07-22] MEDS ORDERED: METHADONE HCL 40 MG DISPERSABLE TABLET PO SCH (06:00)
[2019-07-22] MEDS: chlordiazePOXIDE HCL 25 MG CAPSULE PO PRN ×2 (08:40→14:24)
--- NOTE | 2019-07-22 10:12 | PN ---
[facility] CIWA - CIWA Score Nausea/Vomitin-Mild Nausea/No Vomiting Muscle Tremors: 1-None Visible, but [place] Anxiety: 2 Agitation: 2 Paroxysmal Sweats: No Perspiration Orientation: 0-Oriented Tacttile Disturbances: 1-Very Mild Itch/Numbness Auditory Disturbances: 0-None Visual Disturbances: 0-None Headache: 1-Very Mild CIWA-Ar Total Score: 8 S Progress Note (SOAP) Subjective: alert,irritable,anxious,interrupted sleep Objective: 07/22/19 10:10 Vital Signs Temperature 97.9 F 07/22/19 08:30 Pulse Rate 60 07/22/19 08:30 Respiratory Rate 19 07/22/19 08:30 Blood Pressure 122/67 07/22/19 08:30 O2 Sat by Pulse Oximetry (%) 100 07/22/19 05:25 Assessment: 07/22/19 10:10 withdrawal symptom Plan: continue detox librium regimen,methadone maintenance 140 mgs po daily
[2019-07-22] MEDS: PRENATAL VITAMINS W/ FOLIC ACID TABLET (FP) PO SCH (10:26)
[2019-07-22] MEDS: NICOTINE 21 MG/24 HOURS TOPICAL PATCH TD SCH (10:27)
[2019-07-22] MEDS: cloNIDine HCL 0.1 MG TABLET PO SCH ×2 (10:27→22:04)
[2019-07-22] MEDS: OLANZapine 10 MG TABLET PO SCH (10:27)
[2019-07-22] MEDS: THIAMINE HCL 100 MG TABLET (FP) PO SCH (22:03)
[2019-07-22] MEDS: MELATONIN 5 MG TABLETS PO SCH (22:04)
[2019-07-22] MEDS: SUVOREXANT 10 MG TABLET PO PRN (22:07)
[2019-07-23] MEDS ORDERED: METHADONE HCL 10 MG TABLET ONE (05:35)
[2019-07-23] MEDS ORDERED: METHADONE HCL 40 MG DISPERSABLE TABLET ONE (05:35)
[2019-07-23] MEDS: chlordiazePOXIDE HCL 10 MG CAPSULE PO SCH ×4 (05:45→22:08)
[2019-07-23] MEDS: hydrOXYzine PAMOATE 25 MG CAPSULE (FP) PO SCH ×5 (05:45→22:11)
[2019-07-23] MEDS: METHADONE 120 MG, METHADONE 20 MG PO SCH (05:46)
[2019-07-23] MEDS: chlordiazePOXIDE HCL 10 MG CAPSULE PO PRN ×2 (08:47→15:35)
[2019-07-23] MEDS: METHOCARBAMOL 500 MG TABLET PO PRN (08:55)
--- NOTE | 2019-07-23 09:40 | PN ---
S CIWA - CIWA Score Nausea/Vomitin-No Nausea/No Vomiting Muscle Tremors: 2 Anxiety: 1-Mildly Anxious Agitation: 2 Paroxysmal Sweats: 1-Minimal Palms Moist Orientation: 0-Oriented Tacttile Disturbances: 0-None Auditory Disturbances: 0-None Visual Disturbances: 0-None Headache: 0-None Present CIWA-Ar Total Score: 6 BHS Progress Note (SOAP) Subjective: restless body aches insomnia poor appetite Objective: 07/23/19 09:39 Vital Signs Temperature 97.7 F 07/23/19 08:40 Pulse Rate 55 L 07/23/19 08:40 Respiratory Rate 18 07/23/19 08:40 Blood Pressure 110/58 L 07/23/19 08:40 O2 Sat by Pulse Oximetry (%) 99 07/23/19 05:44 Laboratory Tests 07/20/19 07/20/19 07/20/19 14:00 14:00 14:00 WBC 5.3 RBC 4.71 Hgb 14.1 Hct 41.8 D MCV 88.6 MCH 29.9 MCHC 33.8 RDW 14.7 Plt Count 206 MPV 9.7 Sodium 137 Potassium 3.7 Chloride 100 Carbon Dioxide 30 Anion Gap 7 L BUN 12.3 Creatinine 0.9 Est GFR (CKD-EPI)AfAm 123.39 Est GFR (CKD-EPI)NonAf 106.46 Random Glucose 89 Calcium 9.2 Total Bilirubin 0.6 AST 33 ALT 44 Alkaline Phosphatase 83 Total Protein 7.8 Albumin 4.0 Syphilis Serology HIV Ag/Ab Combo Qual Negative 07/20/19 14:00 WBC RBC Hgb Hct MCV MCH MCHC RDW Plt Count MPV Sodium Potassium Chloride Carbon Dioxide Anion Gap BUN Creatinine Est GFR (CKD-EPI)AfAm Est GFR (CKD-EPI)NonAf Random Glucose Calcium Total Bilirubin AST ALT Alkaline Phosphatase Total Protein Albumin Syphilis Serology Non-reactive HIV Ag/Ab Combo Qual aaox3 ambulating no acute distress Assessment: 07/23/19 09:39 withdrawals noted Plan: continue detox roboxin prn motrin/tylenol prn continue with belsorma as ordered. ensure bid
[2019-07-23] MEDS: NICOTINE 21 MG/24 HOURS TOPICAL PATCH TD SCH (10:15)
[2019-07-23] MEDS: PRENATAL VITAMINS W/ FOLIC ACID TABLET (FP) PO SCH (10:15)
[2019-07-23] MEDS: cloNIDine HCL 0.1 MG TABLET PO SCH ×2 (10:16→22:08)
[2019-07-23] MEDS: OLANZapine 10 MG TABLET PO SCH (10:18)
[2019-07-23] MEDS: THIAMINE HCL 100 MG TABLET (FP) PO SCH (22:08)
[2019-07-23] MEDS: SUVOREXANT 10 MG TABLET PO PRN (22:10)
[2019-07-24] MEDS ORDERED: chlordiazePOXIDE HCL 10 MG CAPSULE PO SCH (05:00)
[2019-07-24] MEDS ORDERED: METHADONE HCL 10 MG TABLET ONE (05:28)
[2019-07-24] MEDS ORDERED: METHADONE HCL 40 MG DISPERSABLE TABLET ONE (05:30)
[2019-07-24] MEDS: METHADONE 120 MG, METHADONE 20 MG PO SCH (05:39)
[2019-07-24] MEDS: hydrOXYzine PAMOATE 25 MG CAPSULE (FP) PO SCH (05:40)
--- NOTE | 2019-07-24 09:19 | DS ---
[facility] Detox Discharge Summary Admission Date: 07/20/19 Discharge Date: 07/24/19 - History Present History: Alcohol Dependence, Cannabis Dependence, Sedative Dependence, MMTP - Physical Exam Results Vital Signs: Vital Signs Temperature 97.5 F L 07/24/19 05:36 Pulse Rate 56 L 07/24/19 05:36 Respiratory Rate 16 07/24/19 05:36 Blood Pressure 121/68 07/24/19 05:36 O2 Sat by Pulse Oximetry (%) 100 07/24/19 05:36 Pertinent Admission Physical Exam Findings: Vital Signs Temperature 97.5 F L 07/24/19 05:36 Pulse Rate 56 L 07/24/19 05:36 Respiratory Rate 16 07/24/19 05:36 Blood Pressure 121/68 07/24/19 05:36 O2 Sat by Pulse Oximetry (%) 100 07/24/19 05:36 Laboratory Tests 07/20/19 07/20/19 07/20/19 14:00 14:00 14:00 WBC 5.3 RBC 4.71 Hgb 14.1 Hct 41.8 D MCV 88.6 MCH 29.9 MCHC 33.8 RDW 14.7 Plt Count 206 MPV 9.7 Sodium 137 Potassium 3.7 Chloride 100 Carbon Dioxide 30 Anion Gap 7 L BUN 12.3 Creatinine 0.9 Est GFR (CKD-EPI)AfAm 123.39 Est GFR (CKD-EPI)NonAf 106.46 Random Glucose 89 Calcium 9.2 Total Bilirubin 0.6 AST 33 ALT 44 Alkaline Phosphatase 83 Total Protein 7.8 Albumin 4.0 Syphilis Serology HIV Ag/Ab Combo Qual Negative 07/20/19 14:00 WBC RBC Hgb Hct MCV MCH MCHC RDW Plt Count MPV Sodium Potassium Chloride Carbon Dioxide Anion Gap BUN Creatinine Est GFR (CKD-EPI)AfAm Est GFR (CKD-EPI)NonAf Random Glucose Calcium Total Bilirubin AST ALT Alkaline Phosphatase Total Protein Albumin Syphilis Serology Non-reactive HIV Ag/Ab Combo Qual aaox3 ambulating no acute distress lungs CTA - Treatment Hospital Course: Detox Protocol Followed, Detoxed Safely, Responded well, Discharged Condition Good, Rehab Referral Accepted Patient has Accepted a Rehab Referral to: pt referred to his MMTP for reinstatement - Medication Discharge Medications: Ambulatory Orders Albuterol Sulfate Inhaler - [Ventolin HFA Inhaler -] 2 inh PO Q4H PRN #1 inhaler 06/25/18 Divalproex Sodium [Depakote] 250 mg PO BID 07/20/19 Gabapentin [Neurontin -] 400 mg PO Q8H 07/20/19 Methadone [Dolophine -] 140 mg PO DAILY 07/20/19 - Diagnosis (1) Alcohol dependence with withdrawal, uncomplicated Current Visit: Yes Status: Chronic (2) Nicotine dependence Current Visit: Yes Status: Chronic Qualifiers: Nicotine product type: cigarettes Substance use status: uncomplicated Qualified Code(s): F17.210 - Nicotine dependence, cigarettes, uncomplicated (3) PTSD (post-traumatic stress disorder) Current Visit: Yes Status: Acute (4) Substance induced mood disorder Current Visit: Yes Status: Acute (5) Wrist drop, left Current Visit: Yes Status: Acute (6) Bipolar disorder Current Visit: Yes Status: Chronic (7) Cannabis dependence Current Visit: No Status: Acute (8) Cluster B personality disorder Current Visit: No Status: Acute (9) Dysthymia Current Visit: No Status: Acute (10) Personality disorder Current Visit: No Status: Acute (11) Sedative hypnotic or anxiolytic dependence Current Visit: Yes Status: Acute (12) Substance-induced sleep disorder Current Visit: No Status: Acute (13) Asthma Current Visit: Yes Status: Chronic Qualifiers: Asthma severity: mild Asthma persistence: intermittent Asthma compl ication type: with status asthmaticus Qualified Code(s): J45.22 - Mild intermittent asthma with status asthmaticus (14) Hepatitis C Current Visit: Yes Status: Chronic Qualifiers: Viral hepatitis chronicity: carrier Qualified Code(s): B18.2 - Chronic viral hepatitis C (15) Methadone maintenance therapy patient Current Visit: Yes Status: Chronic (16) Opioid dependence on agonist therapy Current Visit: No Status: Chronic (17) Schizoaffective disorder Current Visit: No Status: Ruled-out - AMA Did Patient Leave Against Medical Advice: No
[2019-07-24 09:32] VITALS: BP 125/65; PULSE 74; TEMP 98.2
[2019-07-25] MEDS ORDERED: chlordiazePOXIDE HCL 10 MG CAPSULE PO ONE (05:00)
== END 2019-07-24 09:28 | disposition home or self-care (01) | DRG 773 ==
LOC: YASAS 11:01 → Y6N 13:51
PROVIDERS: ADMIT Allergy & Immunology; ATTEND Allergy & Immunology
PROC: HZ2ZZZZ Detoxification Services for Substance Abuse Treatment (ICD-10-PCS; principal; 2019-07-20)
DX: F10.230 Alcohol dependence with withdrawal, uncomplicated (principal); F11.20 Opioid dependence, uncomplicated; F13.20 Sedative, hypnotic or anxiolytic dependence, uncomplicated; F12.20 Cannabis dependence, uncomplicated; F17.210 Nicotine dependence, cigarettes, uncomplicated; F31.9 Bipolar disorder, unspecified; F19.24 Other psychoactive substance dependence with psychoactive substance-induced mood disorder; F19.282 Other psychoactive substance dependence with psychoactive substance-induced sleep disorder; F34.1 Dysthymic disorder; F60.9 Personality disorder, unspecified; J45.22 Mild intermittent asthma with status asthmaticus; F43.10 Post-traumatic stress disorder, unspecified; B18.2 Chronic viral hepatitis C; M21.332 Wrist drop, left wrist; Z79.82 Long term (current) use of aspirin; Z59.0 Homelessness
CPT/HCPCS: 36415; 80053; 85027; 87389; J0735

== ENCOUNTER 2020-02-01 15:22 | Inpatient (IN) | payer OTHER ==
--- NOTE | 2020-02-01 15:39 | BHS.RME ---
Substance Use & Tx History - Substance Use History Alcohol Substance amount: 2 pints vodka or wine Frequency of use: Daily Substance route: Oral, Vaping (t) Heroin Substance amount: 10 to 15 bags Frequency of use: Daily Substance route: Injection (ex: intravenous or skin popping) Date of Last Use: 02/01/20 Xanax Substance amount: 6-8 mg Frequency of use: Daily Substance route: Oral Date of Last Use: 01/31/20 Nicotine Substance amount: 5 cigs Frequency of use: Daily Substance route: Smoking Date of Last Use: 02/01/20 Physical/Psych/Mental Status - Behavior General Behavior: Decreased activity Eye Contact: Normal - Cooperativeness Cooperativeness: Cooperative - Thinking Thought Processes: Tight Thought content: Future oriented - Physical Health Problems Is patient presently having any pain?: Yes (withdrawal back and bone pain) Does patient presently have any injuries (include location): Yes (abrasions on forehead he attributes to doo rag) Does patient currently have a fever: No CIWA Nausea/Vomitin-Mild Nausea/No Vomiting Muscle Tremors: 3 Anxiety: 2 Agitation: 3 Paroxysmal Sweats: 3 Orientation: 2-Disoriented Date<2 days Tacttile Disturbances: 0-None Auditory Disturbances: 0-None Visual Disturbances: 0-None Headache: 1-Very Mild CIWA-Ar Total Score: 15
[2020-02-01 17:27] VITALS: BMI 25.9
--- NOTE | 2020-02-01 18:22 | HP ---
CIWA Score Nausea/Vomitin-Int. Nausea w/Dry Heave Muscle Tremors: 3 (slightly visible with arms extended) Anxiety: 3 Agitation: 2 Paroxysmal Sweats: 2 Orientation: 2-Disoriented Date<2 days Tacttile Disturbances: 0-None Auditory Disturbances: 0-None Visual Disturbances: 0-None Headache: 2-Mild CIWA-Ar Total Score: 18 - Admission Criteria OASAS Guidelines: Admission for Medically Managed Detox: Requires at least one of the followin. CIWA greater than 12 2. Seizures within the past 24 hours 3. Delirium tremens within the past 24 hours 4. Hallucinations within the past 24 hours 5. Acute intervention needed for co occurring medical disorder 6. Acute intervention needed for co occurring psychiatric disorder 7. Severe withdrawal that cannot be handled at a lower level of care (continued vomiting, continued diarrhea, abnormal vital signs) requiring intravenous medication and/or fluids 8. Patient presents the following: CIWA greater than 12 Admission Criteria Met: Admission criteria met Admitting History and Physical - Admission Chief Complaint: 39 yo M presenting for detox from alcohol and benzo (xanax); "need to stop the heroin, xanax, and alcohol." History of Present Illness: 39 yo M presenting for detox from alcohol and benzo (xanax); "need to stop the heroin, xanax, and alcohol." Patient was last here 07/20/2019 - 07/24/2019 for the same detox. Sober for 2 months and relapsed in August; reports arguments with daughter as trigger and "then one thing led to another." Pt with no seizures/blackouts. Pt with no recent overdoses but has overdosed twice in the past about 1 year ago; has narcan at home. Pt is part of a Methadone program ([facility]); last medicated today; dose 140 mg. 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 Psych - depression (seroquel in the past; no medications currently)a Soc/Domiciled - pt lives in a [facility] ([facility]) Legal - mandated to do rehab d/t an open case - Substance Use History Alcohol Substance amount: 2 pints vodka or wine Frequency of use: Daily Substance route: Oral, Vaping (t) Heroin Substance amount: 10 to 15 bags Frequency of use: Daily Substance route: Injection (ex: intravenous or skin popping) Date of Last Use: 02/01/20 Xanax Substance amount: 6-8 mg Frequency of use: Daily Substance route: Oral Date of Last Use: 01/31/20 Nicotine Substance amount: 5 cigs Frequency of use: Daily Substance route: Smoking Date of Last Use: 02/01/20 - Past Medical History Pulmonary: Yes: Asthma Hepatobiliary: Yes: Hepatitis C (untreated) - Smoking History Smoking history: Current every day smoker Have you smoked in the past 12 months: No Aproximately how many cigarettes per day: 30 - Alcohol/Substance Use Hx Alcohol Use: No - Social History ADL: Independent Occupation: unemployed History of Recent Travel: No Admission [facility] Allergies/Adverse Reactions: Allergies Allergy/AdvReac Type Severity Reaction Status Date / Time aspirin Allergy Mild Rash Verified 02/01/20 18:09 - Ebola screening Have you traveled outside of the country in the last 21 days: No Have you been sick,other than usual withdrawal symptoms: No Do you have a fever: No - Review of Systems Constitutional: Diaphoresis, Unintentional Wgt. Loss (60 lbs since July) EENT: reports: No Symptoms Reported Respiratory: reports: No Symptoms reported Cardiac: reports: No Symptoms Reported GI: reports: Nausea, Vomiting (3 times today; just food; nb nb) : reports: No Symptoms Reported Musculoskeletal: reports: Muscle Pain (diffuse muscle aches) Integumentary: reports: No Symptoms Reported Neuro: reports: Headache (mild headache), Tremors (mild tremor) Endocrine: reports: No Symptoms Reported Hematology: reports: No Symptoms Reported Psychiatric: reports: Agitated (mild restlessness), Anxious (moderately anxious), Depressed (mildly depressed (no SI, HI; no SAs previously)_) Patient History - Patient Medical History Hx Anemia: No Hx Asthma: Yes Hx Chronic Obstructive Pulmonary Disease (COPD): No Hx Cancer: No Hx Cardiac Disorders: No Hx Congestive Heart Failure: No Hx Hypertension: No Hx Hypercholesterolemia: No Hx Pacemaker: No HX Cerebrovascular Accident: No Hx Seizures: No Hx Dementia: No Hx Diabetes: No Hx Gastrointestinal Disorders: No Hx Liver Disease: No Hx Genitourinary Disorders: No Hx Sexually Transmitted Disorders: No Hx Renal Disease (ESRD): No Hx Thyroid Disease: No Hx Human Immunodeficiency Virus (HIV): No Hx Hepatitis C: Yes (no tx. for now) Hx Depression: Yes Hx Suicide Attempt: No Hx Bipolar Disorder: Yes Hx Schizophrenia: No - Patient Surgical History Past Surgical History: Yes Hx Neurologic Surgery: No Hx Cataract Extraction: No Hx Cardiac Surgery: No Hx Lung Surgery: No Hx Breast Surgery: No Hx Breast Biopsy: No Hx Abdominal Surgery: No Hx Appendectomy: No Hx Cholecystectomy: No Hx Genitourinary Surgery: No Hx Section: (n/a) Hx Orthopedic Surgery: Yes (removal of benign tumor left pelvis in 1997 at [facility]) Anesthesia Reaction: No - PPD History Date: 07/22/19 Results: 0 mm - Smoking Cessation Smoking history: Current every day smoker Have you smoked in the past 12 months: Yes Aproximately how many cigarettes per day: 5 Cigars Per Day: 0 Hx Chewing Tobacco Use: No Initiated information on smoking cessation: Yes 'Breaking Loose' booklet given: 02/01/20 Admission Physical Exam S - Vital Signs Vital Signs: Vital Signs - 24 hr 02/01/20 17:26 Temperature 97 F L Pulse Rate 59 L Respiratory 12 Rate Blood Pressure 115/63 - Physical General Appearance: Yes: No Apparent Distress, Nourished, Appropriately Dressed HEENTM: Yes: EOMI, Hearing grossly Normal, Normocephalic, Normal Voice Respiratory: Yes: Lungs Clear, Normal Breath Sounds, No Respiratory Distress, No Accessory Muscle Use Neck: Yes: Supple, Trachea in good position Breast: Yes: Breast Exam Deferred Cardiology: Yes: Regular Rhythm, Regular Rate Abdominal: Yes: Normal Bowel Sounds, Non Tender, Flat, Soft Genitourinary: Yes: Other (deferred) Back: Yes: Normal Inspection Musculoskeletal: Yes: full range of Motion, Gait Steady Extremities: Yes: Normal Inspection, Normal Range of Motion, Non-Tender, Tremors (mild) Neurological: Yes: Fully Oriented, Alert, Motor Strength 5/5 Integumentary: Yes: Normal Color, Dry, Warm, Track De Guzman (sites with no erythema, warmth, or edema), Other (skin breakdown (2 areas) on forehead - pt repors from tying his "do-rag" too tight.) - Diagnostic (1) Cannabis dependence Current Visit: No Status: Acute (2) Sedative hypnotic or anxiolytic dependence Current Visit: Yes Status: Acute (3) Alcohol dependence with withdrawal, uncomplicated Current Visit: Yes Status: Acute (4) Asthma Current Visit: No Status: Chronic Qualifiers: Asthma severity: mild Asthma persistence: intermittent Asthma complication type: unspecified Qualified Code(s): J45.20 - Mild intermittent asthma, uncomplicated (5) Hepatitis C Current Visit: No Status: Chronic Qualifiers: Viral hepatitis chronicity: carrier Qualified Code(s): B18.2 - Chronic viral hepatitis C (6) Methadone maintenance therapy patient Current Visit: Yes Status: Chronic (7) Nicotine dependence Current Visit: Yes Status: Acute Qualifiers: Nicotine product type: cigarettes Substance use status: uncomplicated Qualified Code(s): F17.210 - Nicotine dependence, cigarettes, uncomplicated Cleared for Admission BHS - Detox or Rehab [facility] Level of Care: Medically Managed Detox Regimen/Protocol: Librium Breathalyzer - Breathalyzer Breathalyzer: 0 Urine Drug Screen - Test Device Lot number: [id number] Expiration date: 78 - Control Is test valid?: Yes - Results Drug screen NEGATIVE: No Urine drug screen results: THC-Marijuana, FEN-Fentanyl, MTD-Methadone Inpatient Rehab Admission - Rehab Decision to Admit Inpatient rehab admission?: No
[2020-02-01] MEDS ORDERED: ONDANSETRON *ODT* 4 MG TABLET SL PRN (18:43)
[2020-02-01] MEDS ORDERED: MENTHOL/PHENOL 1 EACH UD MM PRN (18:43)
[2020-02-01] MEDS ORDERED: BISMUTH SUBSALICYLATE 524 MG/30 ML UD PO PRN (18:43)
[2020-02-01] MEDS ORDERED: MAGNESIUM HYDROX 2400MG/30ML ORAL SUSPENSION 30 ML CUP PO PRN (18:43)
[2020-02-01] MEDS ORDERED: MAGNESIUM CITRATE 300 ML BOTTLE PO PRN (18:43)
[2020-02-01] MEDS ORDERED: MAG HYDROX/AL HYDROX/SIMETH 30 ML UNIT-DOSE CUP PO PRN (18:43)
[2020-02-01] MEDS ORDERED: ACETAMINOPHEN 325 MG TABLET (FP) PO PRN ×2 (18:43)
[2020-02-01] MEDS ORDERED: IBUPROFEN 400 MG TABLET (FP) PO PRN (18:43)
[2020-02-01] MEDS ORDERED: NICOTINE POLACRILEX 2 MG GUM BUC PRN (18:43)
[2020-02-01] MEDS ORDERED: ALBUTEROL SO4 HFA INHALER IH PRN (18:48)
--- OUTSIDE RECORDS SUMMARY | 2020-02-01 18:59 | XMS ---
:1980 Author Organization [facility] Support Name Relationship Address Phone UE Unavailable Unavailable Unavailable RAY ORELLANA MOTHER [address], [address] [place] [address] NICHOLAS GUZMAN [address] [place] [address] Re-disclosure Warning The records that you are about to access may contain information from federally- assisted alcohol or drug abuse programs. If such information is present, then the following federally mandated warning applies: This information has been disclosed to you from records protected by federal confidentiality rules (42 CFR part 2). The federal rules prohibit you from making any further disclosure of this information unless further disclosure is expressly permitted by the written consent of the person to whom it pertains or as otherwise permitted by 42 CFR part 2. A general authorization for the release of medical or other information is NOT sufficient for this purpose. The Federal rules restrict any use of the information to criminally investigate or prosecute any alcohol or drug abuse patient.The records that you are about to access may contain highly sensitive health information, the redisclosure of which is protected by Article 27-F of the [facility] Public Health law. If you continue you may haveaccess to information: Regarding HIV / AIDS; Provided by facilities licensed or operated by the [facility] Office of Mental Health; or Provided by the [facility] Office for People With Developmental Disabilities. If such information is present, then the following [facility] mandated warning applies: This information has been disclosed to you from confidential records which are protected by state law. State law prohibits you from making any further disclosure of this information without the specific written consent of the person to whom it pertains, or as otherwise permitted by law. Any unauthorized further disclosure in violation of state law may result in a fine or snf sentence or both. A general authorization for the release of medical or other information is NOT sufficient authorization for further disclosure. Insurance Providers Payer name Policy type Policy ID Covered Covered libertarian's Policy P johanne / Coverage libertarian ID relationship to [employer] Inf ormation type boucher BEACON [id number] SP [id number] [employer]ON [id number] SP [id number] METROPLUS METRO PLUS [id number] SP [id number] [employer]ACON [id number] SP [id number] METROPLUS Results ID Date Data Source [id number] 01/14/2020 11:52:00 AM EDT [facility] Name Value Range Interpretation Description Data Sup porting Code Source(s) Document(s ) SARS-CoV-2 [facility] Reportable This lab was ordered by [facility] and reported by DAVID. ID Date Data Source [id number] 01/09/2020 08:36:00 PM EDT [facility] Name Value Range Interpretation Description Data Sup porting Code Source(s) Document(s ) SARS-CoV-2 [facility] Reportable This lab was ordered by [facility] and reported by DAVID. Procedure
[2020-02-01] MEDS: chlordiazePOXIDE HCL 25 MG CAPSULE PO SCH ×2 (19:31→22:43)
[2020-02-01] MEDS: NICOTINE 14 MG/24 HOURS TOPICAL PATCH TD SCH (19:33)
[2020-02-01] MEDS: MELATONIN 5 MG TABLETS PO SCH (22:43)
[2020-02-01] MEDS: GABAPENTIN 400 MG CAPSULE PO SCH (22:43)
[2020-02-01] MEDS: THIAMINE HCL 100 MG TABLET (FP) PO SCH (22:43)
[2020-02-01] MEDS: hydrOXYzine PAMOATE 25 MG CAPSULE (FP) PO SCH (22:43)
[2020-02-02] MEDS: chlordiazePOXIDE HCL 25 MG CAPSULE PO SCH ×4 (05:46→22:22)
[2020-02-02] MEDS: hydrOXYzine PAMOATE 25 MG CAPSULE (FP) PO SCH ×5 (05:47→22:23)
[2020-02-02] MEDS: GABAPENTIN 400 MG CAPSULE PO SCH ×3 (05:47→22:23)
[2020-02-02] MEDS ORDERED: METHADONE HCL 10 MG TABLET PO ONE (08:59)
[2020-02-02] MEDS ORDERED: METHADONE 120 MG, METHADONE 20 MG PO ONE (09:05)
[2020-02-02] MEDS ORDERED: METHADONE HCL 10 MG TABLET ONE (09:17)
[2020-02-02] MEDS ORDERED: METHADONE HCL 40 MG DISPERSABLE TABLET ONE (09:18)
[2020-02-02] MEDS: PRENATAL VITAMINS W/ FOLIC ACID TABLET (FP) PO SCH (09:21)
[2020-02-02] MEDS: NICOTINE 14 MG/24 HOURS TOPICAL PATCH TD SCH (10:09)
[2020-02-02 10:19] LABS: HEMATOCRIT 40.6 % (35.4-49); HEMOGLOBIN 13.5 GM/dL (11.7-16.9); MCH 29.4 pg (25.7-33.7); MCHC 33.2 g/dl (32.0-35.9); MEAN CELL VOLUME 88.6 fl (80-96); MEAN PLT VOLUME 8.8 fl (7.5-11.1); PLATELET COUNT 211 K/MM3 (134-434); RBC 4.58 M/mm3 (4.00-5.60); RDW 17.1 % (11.9-15.9); WHITE BLOOD COUNT 3.6 K/mm3 (4.0-10.0)
[2020-02-02 10:30] LABS: ALBUMIN 3.8 g/dl (3.4-5.0); BILIRUBIN,TOTAL 0.4 mg/dL (0.2-1); BLOOD UREA NITROGEN 13.6 mg/dL (7-18); CALCIUM 9.4 mg/dL (8.5-10.1); CREATININE 0.7 mg/dL (0.55-1.3); POTASSIUM 4.8 mmol/L (3.5-5.1); TOT PROT 7.2 g/dl (6.4-8.2)
--- NOTE | 2020-02-02 11:08 | PN ---
S CIWA - CIWA Score Nausea/Vomitin-Mild Nausea/No Vomiting Muscle Tremors: 2 Anxiety: 4-Mod. Anxious/Guarded Agitation: 4-Moderately Restless Paroxysmal Sweats: 2 Orientation: 0-Oriented Tacttile Disturbances: 0-None Auditory Disturbances: 0-None Visual Disturbances: 0-None Headache: 0-None Present CIWA-Ar Total Score: 13 BHS Progress Note (SOAP) Subjective: 39 years old male was admitted on 02/01/20 for alcohol and benzo withdrawal sx management treating with librium detox regiment mr wadsworth experiencing methadone withdrawal that he takes methadone 140 mg po around 5 am daily methadone 140mg verified and ordered business writer call pharmacy review legitimacy and mr wadsworth received methadone 140mg feels better requests ensure ensure supplement po bid with meals Objective: 02/02/20 11:13 Vital Signs - 24 hr 02/01/20 02/01/20 02/01/20 17:26 19:22 20:24 Temperature 97 F L 97.2 F L 97.1 F L Pulse Rate 59 L 55 L 62 Respiratory 12 18 18 Rate Blood Pressure 115/63 129/77 100/59 L O2 Sat by Pulse 100 100 Oximetry (%) 02/02/20 02/02/20 06:42 09:17 Temperature 98 F 97.4 F L Pulse Rate 61 69 Respiratory 18 16 Rate Blood Pressure 150/89 105/60 O2 Sat by Pulse 100 100 Oximetry (%) Vital Signs - 24 hr Laboratory Tests 02/01/20 02/01/20 07:00 07:00 WBC 3.6 L RBC 4.58 Hgb 13.5 Hct 40.6 MCV 88.6 MCH 29.4 MCHC 33.2 RDW 17.1 H Plt Count 211 MPV 8.8 Sodium 138 Potassium 4.8 Chloride 102 Carbon Dioxide 33 H Anion Gap 4 L BUN 13.6 Creatinine 0.7 Est GFR (CKD-EPI)AfAm 135.86 Est GFR (CKD-EPI)NonAf 117.22 Random Glucose 70 L Calcium 9.4 Total Bilirubin 0.4 AST 72 H ALT 104 H Alkaline Phosphatase 89 Total Protein 7.2 Albumin 3.8 02/02/20 11:13 covid pending Assessment: 02/02/20 11:13 alcohol and benzo withdrawal Plan: librium regiment
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
[2020-02-02] MEDS: chlordiazePOXIDE HCL 25 MG CAPSULE PO PRN (13:11)
[2020-02-02] MEDS: THIAMINE HCL 100 MG TABLET (FP) PO SCH (22:23)
[2020-02-02] MEDS: QUEtiapine FUMARATE 100 MG TABLET (FP) PO SCH (22:23)
[2020-02-02] MEDS: MELATONIN 5 MG TABLETS PO SCH (22:23)
[2020-02-03] MEDS ORDERED: METHADONE HCL 10 MG TABLET ONE (05:22)
[2020-02-03] MEDS ORDERED: METHADONE HCL 40 MG DISPERSABLE TABLET ONE (05:23)
[2020-02-03] MEDS: GABAPENTIN 400 MG CAPSULE PO SCH ×3 (05:51→22:29)
[2020-02-03] MEDS: METHADONE 120 MG, METHADONE 20 MG PO SCH (05:51)
[2020-02-03] MEDS: hydrOXYzine PAMOATE 25 MG CAPSULE (FP) PO SCH ×5 (05:51→22:29)
[2020-02-03] MEDS: chlordiazePOXIDE HCL 25 MG CAPSULE PO SCH ×4 (05:52→22:29)
[2020-02-03] MEDS ORDERED: METHADONE HCL 10 MG TABLET PO SCH (06:00)
--- NOTE | 2020-02-03 08:08 | PN ---
Teaching Attending Note Name of Resident: Sumeet Soto ATTENDING PHYSICIAN STATEMENT I saw and evaluated the patient. I reviewed the resident's note and discussed the case with the resident. I agree with the resident's findings and plan as documented. SUBJECTIVE: OBJECTIVE: ASSESSMENT AND PLAN: 1. Alcohol withdrawal 2. Sedative use disorder Plan 1. Librium detox protocol
[2020-02-03] MEDS: NICOTINE 14 MG/24 HOURS TOPICAL PATCH TD SCH (10:04)
[2020-02-03] MEDS: PRENATAL VITAMINS W/ FOLIC ACID TABLET (FP) PO SCH (10:04)
[2020-02-03] MEDS: chlordiazePOXIDE HCL 25 MG CAPSULE PO PRN (13:29)
--- NOTE | 2020-02-03 17:11 | PN ---
S CIWA - CIWA Score Nausea/Vomitin Muscle Tremors: 2 Anxiety: 2 Agitation: 2 Paroxysmal Sweats: No Perspiration Orientation: 0-Oriented Tacttile Disturbances: 1-Very Mild Itch/Numbness Auditory Disturbances: 0-None Visual Disturbances: 0-None Headache: 2-Mild CIWA-Ar Total Score: 11 S Progress Note (SOAP) Subjective: alert,irritable,anxious,interrupted sleep,tremor,pain in the body and back,nausea Objective: 02/03/20 17:08 Vital Signs Temperature 97.5 F L 02/03/20 12:37 Pulse Rate 86 02/03/20 12:37 Respiratory Rate 18 02/03/20 12:37 Blood Pressure 138/90 02/03/20 12:37 O2 Sat by Pulse Oximetry (%) 98 02/03/20 12:37 02/03/20 17:08 Laboratory Last Values WBC 3.6 K/mm3 (4.0-10.0) L 02/01/20 07:00 RBC 4.58 M/mm3 (4.00-5.60) 02/01/20 07:00 Hgb 13.5 GM/dL (11.7-16.9) 02/01/20 07:00 Hct 40.6 % (35.4-49) 02/01/20 07:00 MCV 88.6 fl (80-96) 02/01/20 07:00 MCH 29.4 pg (25.7-33.7) 02/01/20 07:00 MCHC 33.2 g/dl (32.0-35.9) 02/01/20 07:00 RDW 17.1 % (11.9-15.9) H 02/01/20 07:00 Plt Count 211 K/MM3 (134-434) 02/01/20 07:00 MPV 8.8 fl (7.5-11.1) 02/01/20 07:00 Sodium 138 mmol/L (136-145) 02/01/20 07:00 Potassium 4.8 mmol/L (3.5-5.1) 02/01/20 07:00 Chloride 102 mmol/L (98-107) 02/01/20 07:00 Carbon Dioxide 33 mmol/L (21-32) H 02/01/20 07:00 Anion Gap 4 MMOL/L (8-16) L 02/01/20 07:00 BUN 13.6 mg/dL (7-18) 02/01/20 07:00 Creatinine 0.7 mg/dL (0.55-1.3) 02/01/20 07:00 Est GFR (CKD-EPI)AfAm 135.86 02/01/20 07:00 Est GFR (CKD-EPI)NonAf 117.22 02/01/20 07:00 Random Glucose 70 mg/dL (74-106) L 02/01/20 07:00 Calcium 9.4 mg/dL (8.5-10.1) 02/01/20 07:00 Total Bilirubin 0.4 mg/dL (0.2-1) 02/01/20 07:00 AST 72 U/L (15-37) H 02/01/20 07:00 ALT 104 U/L (13-61) H 02/01/20 07:00 Alkaline Phosphatase 89 U/L (45-117) 02/01/20 07:00 Total Protein 7.2 g/dl (6.4-8.2) 02/01/20 07:00 Albumin 3.8 g/dl (3.4-5.0) 02/01/20 07:00 Syphilis Serology Non-reactive (NONREACTIVE) 02/01/20 07:00 COVID-19 (YAN) Not detected (Not Detected) 02/01/20 19:00 Assessment: 02/03/20 17:09 withdrawal symptom Plan: continue detox wbc 3600,elevation of alt and ast probably due to chronic alcoholism advise abstinence from alcohol, continue methadone maintenance 140 mgs po daily maintenance
[2020-02-03] MEDS: QUEtiapine FUMARATE 100 MG TABLET (FP) PO SCH (22:29)
[2020-02-03] MEDS: THIAMINE HCL 100 MG TABLET (FP) PO SCH (22:29)
[2020-02-03] MEDS: MELATONIN 5 MG TABLETS PO SCH (22:30)
[2020-02-04] MEDS ORDERED: chlordiazePOXIDE HCL 10 MG CAPSULE PO PRN
[2020-02-04] MEDS ORDERED: METHADONE HCL 10 MG TABLET ONE (04:33)
[2020-02-04] MEDS ORDERED: METHADONE HCL 40 MG DISPERSABLE TABLET ONE (04:34)
[2020-02-04] MEDS: chlordiazePOXIDE HCL 10 MG CAPSULE PO SCH ×4 (05:22→22:22)
[2020-02-04] MEDS: GABAPENTIN 400 MG CAPSULE PO SCH ×3 (05:23→22:23)
[2020-02-04] MEDS: METHADONE 120 MG, METHADONE 20 MG PO SCH (05:23)
[2020-02-04] MEDS: hydrOXYzine PAMOATE 25 MG CAPSULE (FP) PO SCH ×5 (05:24→22:23)
[2020-02-04] MEDS: PRENATAL VITAMINS W/ FOLIC ACID TABLET (FP) PO SCH (10:15)
[2020-02-04] MEDS: NICOTINE 14 MG/24 HOURS TOPICAL PATCH TD SCH (10:16)
[2020-02-04] MEDS ORDERED: ONDANSETRON *ODT* 4 MG TABLET SL PRN (12:00)
--- NOTE | 2020-02-04 13:56 | PN ---
S CIWA - CIWA Score Nausea/Vomitin-Mild Nausea/No Vomiting Muscle Tremors: 2 Anxiety: 2 Agitation: 2 Paroxysmal Sweats: No Perspiration Orientation: 0-Oriented Tacttile Disturbances: 1-Very Mild Itch/Numbness Auditory Disturbances: 0-None Visual Disturbances: 0-None Headache: 1-Very Mild CIWA-Ar Total Score: 9 [facility] Progress Note (SOAP) Subjective: alert,irritable,anxious,nausea aching pain,pain in the body Objective: 02/04/20 17:43 Vital Signs Temperature 97.8 F 02/04/20 16:45 Pulse Rate 61 02/04/20 16:45 Respiratory Rate 18 02/04/20 16:45 Blood Pressure 89/55 L 02/04/20 16:45 O2 Sat by Pulse Oximetry (%) 98 02/04/20 12:46 Assessment: 02/04/20 17:43 withdrawal symptom Plan: continue detox librium regimen,zofran 4 mgs sl prn for nausea,vomiting q 6 hrs prn,continue methadone 140 mgs po daily maintenance
[2020-02-04] MEDS: QUEtiapine FUMARATE 100 MG TABLET (FP) PO SCH (22:22)
[2020-02-04] MEDS: THIAMINE HCL 100 MG TABLET (FP) PO SCH (22:23)
[2020-02-04] MEDS: MELATONIN 5 MG TABLETS PO SCH (22:23)
[2020-02-05] MEDS ORDERED: METHADONE HCL 10 MG TABLET ONE (04:35)
[2020-02-05] MEDS ORDERED: METHADONE HCL 40 MG DISPERSABLE TABLET ONE (04:35)
[2020-02-05] MEDS: hydrOXYzine PAMOATE 25 MG CAPSULE (FP) PO SCH ×5 (05:44→22:39)
[2020-02-05] MEDS: chlordiazePOXIDE HCL 10 MG CAPSULE PO SCH ×2 (05:44→17:59)
[2020-02-05] MEDS: METHADONE 120 MG, METHADONE 20 MG PO SCH (05:44)
[2020-02-05] MEDS: GABAPENTIN 400 MG CAPSULE PO SCH ×3 (05:45→22:39)
--- NOTE | 2020-02-05 09:57 | PN ---
[facility] CIWA - CIWA Score Nausea/Vomitin Muscle Tremors: None Anxiety: 2 Agitation: 2 Paroxysmal Sweats: 1-Minimal Palms Moist Orientation: 0-Oriented Headache: 1-Very Mild [facility] Progress Note (SOAP) Subjective: Pt seen at bedside this morning. Pt reporting mild nausea worse than yesterday, mild anxiety, mild irritability/restlessness, and mild perspiration. No tremors. Objective: Last Vital Signs Temp Pulse Resp BP Pulse Ox 97.1 F L 86 16 135/85 96 02/05/20 08:38 02/05/20 08:38 02/05/20 08:38 02/05/20 08:38 02/05/20 06:51 PE Gen - NAD, well dev/well nourished, AOx3 CV - RRR, normal s1, s2 Pulm - CTAB, good air entry Mental Status - anxious MSK - gait steady, normal inspection Skin - palms moist CBC,CMP WBC 3.6 K/mm3 (4.0-10.0) L 02/01/20 07:00 RBC 4.58 M/mm3 (4.00-5.60) 02/01/20 07:00 Hgb 13.5 GM/dL (11.7-16.9) 02/01/20 07:00 Hct 40.6 % (35.4-49) 02/01/20 07:00 MCV 88.6 fl (80-96) 02/01/20 07:00 MCH 29.4 pg (25.7-33.7) 02/01/20 07:00 MCHC 33.2 g/dl (32.0-35.9) 02/01/20 07:00 RDW 17.1 % (11.9-15.9) H 02/01/20 07:00 Plt Count 211 K/MM3 (134-434) 02/01/20 07:00 MPV 8.8 fl (7.5-11.1) 02/01/20 07:00 Sodium 138 mmol/L (136-145) 02/01/20 07:00 Potassium 4.8 mmol/L (3.5-5.1) 02/01/20 07:00 Chloride 102 mmol/L (98-107) 02/01/20 07:00 Carbon Dioxide 33 mmol/L (21-32) H 10/05/20 07:00 Anion Gap 4 MMOL/L (8-16) L 02/01/20 07:00 BUN 13.6 mg/dL (7-18) 02/01/20 07:00 Creatinine 0.7 mg/dL (0.55-1.3) 02/01/20 07:00 Est GFR (CKD-EPI)AfAm 135.86 02/01/20 07:00 Est GFR (CKD-EPI)NonAf 117.22 02/01/20 07:00 Random Glucose 70 mg/dL (74-106) L 02/01/20 07:00 Calcium 9.4 mg/dL (8.5-10.1) 02/01/20 07:00 Total Bilirubin 0.4 mg/dL (0.2-1) 02/01/20 07:00 AST 72 U/L (15-37) H 02/01/20 07:00 ALT 104 U/L (13-61) H 02/01/20 07:00 Alkaline Phosphatase 89 U/L (45-117) 02/01/20 07:00 Total Protein 7.2 g/dl (6.4-8.2) 02/01/20 07:00 Albumin 3.8 g/dl (3.4-5.0) 02/01/20 07:00 02/05/20 10:09 Assessment: Improving alcohol withdrawal symptoms; stable on current methadone maintenance 02/05/20 10:03 Plan: Current Medications Generic Name Dose Route Start Last Admin Trade Name Freq PRN Reason Stop Dose Admin Acetaminophen 650 mg 02/01/20 18:43 Tylenol - PO Q6H PRN PAIN LEVEL 4 - 6 Acetaminophen 650 mg 02/01/20 18:43 Tylenol - PO Q6H PRN FEVER Al Hydroxide/Mg Hydroxide 30 ml 02/01/20 18:43 Mylanta Oral Suspension - PO Q6H PRN DYSPEPSIA Albuterol Sulfate 2 puff 02/01/20 18:48 Ventolin Hfa Inhaler - IH Q4H PRN ASTHMA Bismuth Subsalicylate 524 mg 02/01/20 18:43 Pepto-Bismol - PO Q1H PRN DIARRHEA Chlordiazepoxide HCl 10 mg 02/05/20 05:00 02/05/20 05:44 Librium - PO 02/05/20 17:01 10 mg Q12H MARLO Administration Chlordiazepoxide HCl 10 mg 02/06/20 05:00 Librium - PO 02/06/20 05:01 ONCE@0500 ONE Eucalyptus/Menthol/Phenol/Sorbitol 1 each 02/01/20 18:43 Cepastat Lozenge - MM 02/07/20 18:44 Q4H PRN SORE THROAT Gabapentin 400 mg 02/01/20 22:00 02/05/20 05:45 Neurontin - PO 400 mg TID MARLO Administration Hydroxyzine Pamoate 25 mg 02/01/20 22:00 02/05/20 05:44 Vistaril - PO 02/07/20 18:44 25 mg Q4HWA MARLO Administration Ibuprofen 400 mg 02/01/20 18:43 Motrin - PO Q6H PRN PAIN LEVEL 1 - 3 Magnesium Citrate 300 ml 02/01/20 18:43 Citroma - PO Q48H PRN CONSTIPATION Magnesium Hydroxide 30 ml 02/01/20 18:43 Milk Of Magnesia - PO PRN PRN CONSTIPATION Melatonin 5 mg 02/01/20 22:00 02/04/20 22:23 Melatonin PO 5 mg HS MARLO Administration Methadone HCl 120 mg/ 140 mg 02/03/20 06:00 02/05/20 05:44 Methadone HCl 20 mg PO 02/09/20 05:59 140 mg DAILY@0600 MARLO Administration Methocarbamol 500 mg 02/01/20 18:43 Robaxin - PO 02/07/20 18:44 Q6H PRN MUSCLE SPASMS Nicotine 14 mg 02/01/20 19:00 02/04/20 10:16 Nicoderm Patch - TD 14 mg DAILY MARLO Administration Nicotine Polacrilex 2 mg 02/01/20 18:43 Nicorette Gum - BUC Q2H PRN NICOTINE REPLACEMENT RX Ondansetron HCl 4 mg 02/04/20 12:00 Zofran Odt - SL Q6H PRN NAUSEA AND/OR VOMITING Multivit/Folic Acid/Iron 1 tab 02/02/20 10:00 02/04/20 10:15 Vitamins (Sjr) - PO 1 tab DAILY MARLO Administration Quetiapine Fumarate 100 mg 02/02/20 22:00 02/04/20 22:22 Seroquel - PO 100 mg HS MARLO Administration Thiamine HCl 100 mg 02/01/20 22:00 02/04/20 22:23 Vitamin B1 - PO 100 mg HS MARLO Administration Discontinued Medications Generic Name Dose Route Start Last Admin Trade Name Renee PRN Reason Stop Dose Admin Chlordiazepoxide HCl 50 mg 02/01/20 17:00 02/02/20 22:22 Librium - PO 02/02/20 23:01 50 mg [id number] MARLO Administration Chlordiazepoxide HCl 25 mg 02/03/20 05:00 02/03/20 22:29 Librium - PO 02/03/20 23:01 25 mg [id number] MARLO Administration Chlordiazepoxide HCl 25 mg 02/01/20 18:43 02/03/20 13:29 Librium - PO 02/03/20 23:59 25 mg Q4H PRN Administration WITHDRAWAL(CONT SUBST) Chlordiazepoxide HCl 10 mg 02/04/20 05:00 02/04/20 22:22 Librium - PO 02/04/20 23:01 10 mg [id number] MARLO Administration Chlordiazepoxide HCl 10 mg 02/04/20 00:00 02/04/20 13:09 Librium - PO 02/05/20 00:00 10 mg Q4H PRN Administration WITHDRAWAL(CONT SUBST) Methadone HCl 120 mg/ 140 mg 02/02/20 09:05 02/02/20 09:21 Methadone HCl 20 mg PO 02/02/20 09:06 140 mg ONCE ONE Administration Ondansetron HCl 4 mg 02/01/20 18:43 Zofran Odt - SL Q8H PRN Nausea/Vomiting - Continue detox librium regimen,zofran 4 mgs sl prn for nausea,vomiting q 6 hrs prn,continue methadone 140 mgs po daily maintenance - Pt will be discharged on Saturday02/08/2020 and [facility]
[2020-02-05] MEDS: PRENATAL VITAMINS W/ FOLIC ACID TABLET (FP) PO SCH (10:10)
[2020-02-05] MEDS: NICOTINE 14 MG/24 HOURS TOPICAL PATCH TD SCH (10:10)
[2020-02-05] MEDS: METHOCARBAMOL 500 MG TABLET PO PRN ×2 (10:13→22:39)
[2020-02-05] MEDS: cloNIDine HCL 0.1 MG TABLET PO PRN (13:16)
--- NOTE | 2020-02-05 13:52 | PN ---
[facility] Progress Note Note: Called by Melissa Willingham RN Pt asking to leave today He spoke to his counselor and told he has an appt on Saturday for housing. initially pt was to go to rehab on SaturdayFeb 07 Now, pt has a bed in Rehab for tomorrow Rec: pt to call his counselor, let them know he is addressing his problems Will place order for discharge tomorrow
[2020-02-05] MEDS: THIAMINE HCL 100 MG TABLET (FP) PO SCH (22:39)
[2020-02-05] MEDS: MELATONIN 5 MG TABLETS PO SCH (22:39)
[2020-02-05] MEDS: QUEtiapine FUMARATE 100 MG TABLET (FP) PO SCH (22:39)
[2020-02-06] MEDS ORDERED: chlordiazePOXIDE HCL 10 MG CAPSULE PO ONE (05:00)
[2020-02-06] MEDS ORDERED: METHADONE HCL 40 MG DISPERSABLE TABLET ONE (05:19)
[2020-02-06] MEDS ORDERED: METHADONE HCL 10 MG TABLET ONE (05:19)
[2020-02-06] MEDS: hydrOXYzine PAMOATE 25 MG CAPSULE (FP) PO SCH ×5 (05:32→21:27)
[2020-02-06] MEDS: GABAPENTIN 400 MG CAPSULE PO SCH ×3 (05:32→21:23)
[2020-02-06] MEDS: METHADONE 120 MG, METHADONE 20 MG PO SCH (05:33)
[2020-02-06] MEDS: cloNIDine HCL 0.1 MG TABLET PO PRN (05:37)
[2020-02-06] MEDS: NICOTINE 14 MG/24 HOURS TOPICAL PATCH TD SCH (09:28)
[2020-02-06] MEDS: PRENATAL VITAMINS W/ FOLIC ACID TABLET (FP) PO SCH (09:29)
--- NOTE | 2020-02-06 12:05 | DS ---
[facility] Detox Discharge Summary Admission Date: 02/01/20 Discharge Date: 02/06/20 - History Present History: Alcohol Dependence, Opioid Dependence, Sedative Dependence Additional Comments: Pt is medically cleared and discharged today. Pt completed the detox protocol. pt is encouraged to follow-up with an outpatient CD program and also to follow- up with his pmd which he verbalized understanding. Pt is AOX3, in no acute respiratory distress, Full ROM, and ambulatory. Pertinent Past History: h/o heroin, benzo, and alcohol use disorder. - Physical Exam Results Vital Signs: Vital Signs Temperature 98.0 F 02/06/20 09:16 Pulse Rate 61 02/06/20 09:16 Respiratory Rate 18 02/06/20 09:16 Blood Pressure 121/75 02/06/20 09:16 O2 Sat by Pulse Oximetry (%) 100 02/06/20 05:24 Vital Signs 02/06/20 02/06/20 05:24 09:16 Temperature 97.1 F L 98.0 F Pulse Rate 63 61 Respiratory 18 18 Rate Blood Pressure 110/78 121/75 O2 Sat by Pulse 100 Oximetry (%) Laboratory Last Values WBC 3.6 K/mm3 (4.0-10.0) L 02/01/20 07:00 RBC 4.58 M/mm3 (4.00-5.60) 02/01/20 07:00 Hgb 13.5 GM/dL (11.7-16.9) 02/01/20 07:00 Hct 40.6 % (35.4-49) 02/01/20 07:00 MCV 88.6 fl (80-96) 02/01/20 07:00 MCH 29.4 pg (25.7-33.7) 02/01/20 07:00 MCHC 33.2 g/dl (32.0-35.9) 02/01/20 07:00 RDW 17.1 % (11.9-15.9) H 02/01/20 07:00 Plt Count 211 K/MM3 (134-434) 02/01/20 07:00 MPV 8.8 fl (7.5-11.1) 02/01/20 07:00 Sodium 138 mmol/L (136-145) 02/01/20 07:00 Potassium 4.8 mmol/L (3.5-5.1) 02/01/20 07:00 Chloride 102 mmol/L (98-107) 02/01/20 07:00 Carbon Dioxide 33 mmol/L (21-32) H 02/01/20 07:00 Anion Gap 4 MMOL/L (8-16) L 02/01/20 07:00 BUN 13.6 mg/dL (7-18) 02/01/20 07:00 Creatinine 0.7 mg/dL (0.55-1.3) 02/01/20 07:00 Est GFR (CKD-EPI)AfAm 135.86 02/01/20 07:00 Est GFR (CKD-EPI)NonAf 117.22 02/01/20 07:00 Random Glucose 70 mg/dL (74-106) L 02/01/20 07:00 Calcium 9.4 mg/dL (8.5-10.1) 02/01/20 07:00 Total Bilirubin 0.4 mg/dL (0.2-1) 02/01/20 07:00 AST 72 U/L (15-37) H 02/01/20 07:00 ALT 104 U/L (13-61) H 02/01/20 07:00 Alkaline Phosphatase 89 U/L (45-117) 02/01/20 07:00 Total Protein 7.2 g/dl (6.4-8.2) 02/01/20 07:00 Albumin 3.8 g/dl (3.4-5.0) 02/01/20 07:00 Syphilis Serology Non-reactive (NONREACTIVE) 02/01/20 07:00 COVID-19 (YAN) Not detected (Not Detected) 02/01/20 19:00 Labs noted. - Treatment Hospital Course: Detox Protocol Followed, Detoxed Safely, Responded well, Discharged Condition Good - Medication Discharge Medications: Ambulatory Orders Albuterol Sulfate Inhaler - [Ventolin HFA Inhaler -] 2 inh PO Q4H PRN #1 inhaler 06/25/18 Divalproex Sodium [Depakote] 250 mg PO BID 07/20/19 Gabapentin [Neurontin -] 400 mg PO Q8H 07/20/19 Methadone [Dolophine -] 140 mg PO DAILY 07/20/19 - Diagnosis (1) Alcohol dependence with withdrawal, uncomplicated Current Visit: Yes Status: Acute (2) Nicotine dependence Current Visit: Yes Status: Chronic Qualifiers: Nicotine product type: cigarettes Substance use status: uncomplicated Qualified Code(s): F17.210 - Nicotine dependence, cigarettes, uncomplicated (3) Sedative hypnotic or anxiolytic dependence Current Visit: Yes Status: Chronic (4) Asthma Current Visit: No Status: Chronic Qualifiers: Asthma severity: mild Asthma persistence: intermittent Asthma complication type: unspecified Qualified Code(s): J45.20 - Mild intermittent asthma, uncomplicated - AMA Did Patient Leave Against Medical Advice: No
[2020-02-06 17:17] VITALS: BP 120/75; PULSE 71; TEMP 97.9
[2020-02-06] MEDS: QUEtiapine FUMARATE 100 MG TABLET (FP) PO SCH (21:22)
[2020-02-06] MEDS: MELATONIN 5 MG TABLETS PO SCH (21:23)
[2020-02-06] MEDS: THIAMINE HCL 100 MG TABLET (FP) PO SCH (21:23)
== END 2020-02-06 21:25 | disposition other institution (70) | DRG 773 ==
LOC: YASAS 15:22 → Y3N 18:55
PROVIDERS: ADMIT Allergy & Immunology; ATTEND Allergy & Immunology
PROC: HZ2ZZZZ Detoxification Services for Substance Abuse Treatment (ICD-10-PCS; principal; 2020-02-01)
DX: F10.230 Alcohol dependence with withdrawal, uncomplicated (principal); F13.230 Sedative, hypnotic or anxiolytic dependence with withdrawal, uncomplicated; F11.20 Opioid dependence, uncomplicated; F12.20 Cannabis dependence, uncomplicated; F17.210 Nicotine dependence, cigarettes, uncomplicated; F19.282 Other psychoactive substance dependence with psychoactive substance-induced sleep disorder; F31.9 Bipolar disorder, unspecified; F25.9 Schizoaffective disorder, unspecified; F43.10 Post-traumatic stress disorder, unspecified; J45.20 Mild intermittent asthma, uncomplicated; B18.2 Chronic viral hepatitis C; Z62.810 Personal history of physical and sexual abuse in childhood; Z88.6 Allergy status to analgesic agent
CPT/HCPCS: 36415; 80053; 85027; 86780; C9803; J0735; U0003

== ENCOUNTER 2020-04-13 11:51 | Inpatient (IN) | payer OTHER ==
[2020-04-13] MEDS ORDERED: ALBUTEROL SO4 HFA INHALER IH PRN (15:20)
[2020-04-13 15:21] VITALS: BMI 26.4
[2020-04-13] MEDS ORDERED: METHOCARBAMOL 500 MG TABLET PO PRN (15:22)
[2020-04-13] MEDS ORDERED: ACETAMINOPHEN 325 MG TABLET (FP) PO PRN ×2 (15:22)
[2020-04-13] MEDS ORDERED: NICOTINE POLACRILEX 2 MG GUM BUC PRN (15:22)
[2020-04-13] MEDS ORDERED: MAG HYDROX/AL HYDROX/SIMETH 30 ML UNIT-DOSE CUP PO PRN (15:22)
[2020-04-13] MEDS ORDERED: IBUPROFEN 400 MG TABLET (FP) PO PRN (15:22)
[2020-04-13] MEDS ORDERED: ONDANSETRON *ODT* 4 MG TABLET SL PRN (15:22)
[2020-04-13] MEDS ORDERED: BISMUTH SUBSALICYLATE 524 MG/30 ML UD PO PRN (15:22)
[2020-04-13] MEDS ORDERED: MAGNESIUM CITRATE 300 ML BOTTLE PO PRN (15:22)
[2020-04-13] MEDS ORDERED: MAGNESIUM HYDROX 2400MG/30ML ORAL SUSPENSION 30 ML CUP PO PRN (15:22)
[2020-04-13] MEDS ORDERED: MENTHOL/PHENOL 1 EACH UD MM PRN (15:22)
[2020-04-13] MEDS ORDERED: LORazepam 1 MG TABLET PO PRN (15:22)
[2020-04-13] MEDS: NICOTINE 14 MG/24 HOURS TOPICAL PATCH TD SCH (15:59)
[2020-04-13 17:09] LABS: POTASSIUM 4.4 mmol/L (3.5-5.1)
[2020-04-13 17:11] LABS: HEMATOCRIT 40.9 % (35.4-49); HEMOGLOBIN 13.6 GM/dL (11.7-16.9); MCH 30.9 pg (25.7-33.7); MCHC 33.4 g/dl (32.0-35.9); MEAN CELL VOLUME 92.7 fl (80-96); MEAN PLT VOLUME 9.7 fl (7.5-11.1); PLATELET COUNT 223 K/MM3 (134-434); RBC 4.41 M/mm3 (4.00-5.60); RDW 14.3 % (11.9-15.9); WHITE BLOOD COUNT 3.4 K/mm3 (4.0-10.0)
[2020-04-13 17:12] LABS: BLOOD UREA NITROGEN 20.5 mg/dL (7-18); CALCIUM 9.1 mg/dL (8.5-10.1)
[2020-04-13 17:13] LABS: ALBUMIN 4.4 g/dl (3.4-5.0)
[2020-04-13 17:15] LABS: CREATININE 0.9 mg/dL (0.55-1.3)
[2020-04-13 17:17] LABS: BILIRUBIN,TOTAL 1.1 mg/dL (0.2-1); TOT PROT 7.8 g/dl (6.4-8.2)
[2020-04-13] MEDS: LORazepam 2 MG TABLET PO SCH ×2 (18:36→22:26)
[2020-04-13] MEDS: hydrOXYzine PAMOATE 25 MG CAPSULE (FP) PO SCH ×2 (18:36→22:26)
[2020-04-13] MEDS: THIAMINE HCL 100 MG TABLET (FP) PO SCH (22:26)
[2020-04-13] MEDS: MELATONIN 5 MG TABLETS PO SCH (22:26)
[2020-04-14] MEDS ORDERED: METHADONE HCL 10 MG TABLET ONE (04:20)
[2020-04-14] MEDS ORDERED: METHADONE HCL 40 MG DISPERSABLE TABLET ONE (04:20)
[2020-04-14] MEDS: hydrOXYzine PAMOATE 25 MG CAPSULE (FP) PO SCH ×5 (05:40→22:27)
[2020-04-14] MEDS: LORazepam 2 MG TABLET PO SCH ×4 (05:40→22:26)
[2020-04-14] MEDS ORDERED: METHADONE 40 MG, METHADONE 20 MG PO ONE (06:00)
[2020-04-14] MEDS ORDERED: METHADONE HCL 10 MG TABLET PO ONE (06:00)
[2020-04-14] MEDS ORDERED: METHADONE HCL 10 MG TABLET (FOR DETOX USE ONLY) PO ONE (06:00)
[2020-04-14] MEDS: PRENATAL VITAMINS W/ FOLIC ACID TABLET (FP) PO SCH (10:01)
[2020-04-14] MEDS: NICOTINE 14 MG/24 HOURS TOPICAL PATCH TD SCH (10:01)
[2020-04-14 11:00] LABS: POTASSIUM 4.2 mmol/L (3.5-5.1)
[2020-04-14 11:02] LABS: CALCIUM 9.2 mg/dL (8.5-10.1)
[2020-04-14 11:03] LABS: ALBUMIN 3.7 g/dl (3.4-5.0); BLOOD UREA NITROGEN 13.6 mg/dL (7-18)
[2020-04-14 11:06] LABS: CREATININE 0.7 mg/dL (0.55-1.3)
[2020-04-14 11:07] LABS: BILIRUBIN,TOTAL 0.5 mg/dL (0.2-1)
[2020-04-14] MEDS: QUEtiapine FUMARATE 100 MG TABLET (FP) PO SCH ×2 (11:19→22:26)
[2020-04-14] MEDS: MELATONIN 5 MG TABLETS PO SCH (22:27)
[2020-04-14] MEDS: THIAMINE HCL 100 MG TABLET (FP) PO SCH (22:27)
[2020-04-15] MEDS ORDERED: METHADONE HCL 40 MG DISPERSABLE TABLET ONE (04:17)
[2020-04-15] MEDS ORDERED: METHADONE HCL 10 MG TABLET ONE (04:17)
[2020-04-15] MEDS: METHADONE 40 MG, METHADONE 20 MG PO SCH (05:23)
[2020-04-15] MEDS: hydrOXYzine PAMOATE 25 MG CAPSULE (FP) PO SCH ×5 (05:24→22:17)
[2020-04-15] MEDS: LORazepam 1 MG TABLET PO SCH ×4 (05:24→22:17)
[2020-04-15] MEDS ORDERED: METHADONE HCL 10 MG TABLET PO SCH (06:00)
[2020-04-15] MEDS ORDERED: METHADONE HCL 10 MG TABLET PO ONE (06:00)
[2020-04-15] MEDS: PRENATAL VITAMINS W/ FOLIC ACID TABLET (FP) PO SCH (10:04)
[2020-04-15] MEDS: QUEtiapine FUMARATE 100 MG TABLET (FP) PO SCH ×2 (10:05→22:16)
[2020-04-15] MEDS: NICOTINE 14 MG/24 HOURS TOPICAL PATCH TD SCH (10:05)
[2020-04-15 10:19] LABS: HEMOGLOBIN 13.9 GM/dL (11.7-16.9); MCH 30.5 pg (25.7-33.7); MCHC 33.1 g/dl (32.0-35.9); MEAN CELL VOLUME 92.2 fl (80-96); MEAN PLT VOLUME 9.9 fl (7.5-11.1); PLATELET COUNT 201 K/MM3 (134-434); RBC 4.56 M/mm3 (4.00-5.60); RDW 14.1 % (11.9-15.9); WHITE BLOOD COUNT 3.7 K/mm3 (4.0-10.0)
[2020-04-15 10:24] LABS: POTASSIUM 3.8 mmol/L (3.5-5.1)
[2020-04-15 10:30] LABS: CALCIUM 9.3 mg/dL (8.5-10.1)
[2020-04-15 10:31] LABS: BLOOD UREA NITROGEN 11.6 mg/dL (7-18)
[2020-04-15 10:34] LABS: CREATININE 0.7 mg/dL (0.55-1.3)
[2020-04-15] MEDS: MELATONIN 5 MG TABLETS PO SCH (22:16)
[2020-04-15] MEDS: THIAMINE HCL 100 MG TABLET (FP) PO SCH (22:17)
[2020-04-16] MEDS ORDERED: LORazepam 0.5 MG TABLET PO PRN
[2020-04-16] MEDS ORDERED: METHADONE HCL 40 MG DISPERSABLE TABLET ONE (04:47)
[2020-04-16] MEDS ORDERED: METHADONE HCL 10 MG TABLET ONE (04:47)
[2020-04-16] MEDS: METHADONE 40 MG, METHADONE 20 MG PO SCH (05:45)
[2020-04-16] MEDS: hydrOXYzine PAMOATE 25 MG CAPSULE (FP) PO SCH ×5 (05:45→22:11)
[2020-04-16] MEDS: LORazepam 0.5 MG TABLET PO SCH ×4 (05:45→22:11)
[2020-04-16] MEDS: PRENATAL VITAMINS W/ FOLIC ACID TABLET (FP) PO SCH (10:23)
[2020-04-16] MEDS: QUEtiapine FUMARATE 100 MG TABLET (FP) PO SCH ×2 (10:24→22:10)
[2020-04-16] MEDS: NICOTINE 14 MG/24 HOURS TOPICAL PATCH TD SCH (10:24)
[2020-04-16] MEDS: THIAMINE HCL 100 MG TABLET (FP) PO SCH (22:10)
[2020-04-16] MEDS: MELATONIN 5 MG TABLETS PO SCH (22:11)
[2020-04-17] MEDS ORDERED: METHADONE HCL 40 MG DISPERSABLE TABLET ONE (04:56)
[2020-04-17] MEDS ORDERED: METHADONE HCL 10 MG TABLET ONE (04:56)
[2020-04-17] MEDS ORDERED: LORazepam 0.5 MG TABLET PO ONE (05:00)
[2020-04-17] MEDS: METHADONE 40 MG, METHADONE 20 MG PO SCH (05:32)
[2020-04-17] MEDS: hydrOXYzine PAMOATE 25 MG CAPSULE (FP) PO SCH ×3 (05:33→13:29)
[2020-04-17] MEDS: NICOTINE 14 MG/24 HOURS TOPICAL PATCH TD SCH (09:13)
[2020-04-17] MEDS: QUEtiapine FUMARATE 100 MG TABLET (FP) PO SCH (09:14)
[2020-04-17] MEDS: PRENATAL VITAMINS W/ FOLIC ACID TABLET (FP) PO SCH (09:17)
[2020-04-17 17:15] VITALS: BP 107/60; PULSE 97; TEMP 98.6
== END 2020-04-17 17:40 | disposition other institution (70) | DRG 773 ==
LOC: YASAS 11:51 → Y3N 15:08
PROVIDERS: ADMIT Allergy & Immunology; ATTEND Allergy & Immunology
PROC: HZ2ZZZZ Detoxification Services for Substance Abuse Treatment (ICD-10-PCS; principal; 2020-04-13)
DX: F10.230 Alcohol dependence with withdrawal, uncomplicated (principal); F11.20 Opioid dependence, uncomplicated; F13.230 Sedative, hypnotic or anxiolytic dependence with withdrawal, uncomplicated; F12.20 Cannabis dependence, uncomplicated; F17.210 Nicotine dependence, cigarettes, uncomplicated; F19.24 Other psychoactive substance dependence with psychoactive substance-induced mood disorder; F19.282 Other psychoactive substance dependence with psychoactive substance-induced sleep disorder; F43.10 Post-traumatic stress disorder, unspecified; J45.20 Mild intermittent asthma, uncomplicated; B18.2 Chronic viral hepatitis C; R25.1 Tremor, unspecified; Z88.6 Allergy status to analgesic agent; Z62.810 Personal history of physical and sexual abuse in childhood; Z56.0 Unemployment, unspecified
CPT/HCPCS: 36415; 80048; 80053; 85027; 86780; C9803; U0003

== ENCOUNTER 2020-04-17 14:30 | Inpatient (IN) | payer OTHER ==
[~2020-04-17 14:30] MED LIST changes: -MENTHOL/PHENOL 1 EACH UD MM PRN; +NICOTINE POLACRILEX 2 MG GUM BC PRN; +guaiFENesin 200 MG/10 ML 10 ML UNIT-DOSE CUPS PO PRN; -guaiFENesin/D-METHORPHAN HB 10 ML UNIT-DOSE CUPS PO PRN
[2020-04-17] MEDS ORDERED: ALBUTEROL SO4 HFA INHALER IH PRN (14:34)
[2020-04-17] MEDS: QUEtiapine FUMARATE 100 MG TABLET (FP) PO SCH (21:28)
[2020-04-17] MEDS: MELATONIN 5 MG TABLETS PO SCH (21:28)
[2020-04-17] MEDS: THIAMINE HCL 100 MG TABLET (FP) PO SCH (21:28)
[2020-04-18] MEDS ORDERED: METHADONE HCL 10 MG TABLET PO SCH (06:00)
[2020-04-18] MEDS: METHADONE HCL 10 MG TABLET PO SCH (06:46)
[2020-04-18] MEDS: PRENATAL VITAMINS W/ FOLIC ACID TABLET (FP) PO SCH (10:06)
[2020-04-18] MEDS: NICOTINE 14 MG/24 HOURS TOPICAL PATCH TD SCH (10:06)
[2020-04-18] MEDS: QUEtiapine FUMARATE 100 MG TABLET (FP) PO SCH ×2 (10:06→21:35)
[2020-04-18] MEDS ORDERED: PNEUMOC 13-VAL CONJ-DIP CRM/PF 0.5 ML DISP.SYRIN IM ONE (12:00)
[2020-04-18] MEDS ORDERED: FLU VACCINE (FLULAVAL) PF 60 MCG/0.5 ML SYRINGE 2020-2021 IM ONE (12:00)
[2020-04-18] MEDS: METHOCARBAMOL 500 MG TABLET PO SCH ×2 (12:10→21:35)
[2020-04-18] MEDS: THIAMINE HCL 100 MG TABLET (FP) PO SCH (21:35)
[2020-04-18] MEDS: MELATONIN 5 MG TABLETS PO SCH (21:35)
[2020-04-19] MEDS: METHADONE HCL 10 MG TABLET PO SCH (06:10)
[2020-04-19] MEDS: METHOCARBAMOL 500 MG TABLET PO SCH ×3 (06:10→21:15)
[2020-04-19] MEDS: hydrOXYzine PAMOATE 50 MG CAPSULE (FP) PO PRN ×3 (06:12→21:15)
[2020-04-19] MEDS: NICOTINE 14 MG/24 HOURS TOPICAL PATCH TD SCH (10:00)
[2020-04-19] MEDS: QUEtiapine FUMARATE 100 MG TABLET (FP) PO SCH ×2 (10:00→21:15)
[2020-04-19] MEDS: PRENATAL VITAMINS W/ FOLIC ACID TABLET (FP) PO SCH (10:00)
[2020-04-19] MEDS: THIAMINE HCL 100 MG TABLET (FP) PO SCH (21:15)
[2020-04-19] MEDS: MELATONIN 5 MG TABLETS PO SCH (21:15)
[2020-04-20] MEDS: METHOCARBAMOL 500 MG TABLET PO SCH ×3 (06:17→21:19)
[2020-04-20] MEDS: METHADONE 40 MG, METHADONE 20 MG PO SCH (06:18)
[2020-04-20] MEDS: hydrOXYzine PAMOATE 50 MG CAPSULE (FP) PO PRN ×2 (06:18→21:19)
[2020-04-20] MEDS: METHADONE HCL 10 MG TABLET PO SCH (06:22)
[2020-04-20] MEDS: PRENATAL VITAMINS W/ FOLIC ACID TABLET (FP) PO SCH (09:33)
[2020-04-20] MEDS: QUEtiapine FUMARATE 100 MG TABLET (FP) PO SCH ×2 (09:33→21:19)
[2020-04-20] MEDS: NICOTINE 14 MG/24 HOURS TOPICAL PATCH TD SCH (09:33)
[2020-04-20] MEDS: THIAMINE HCL 100 MG TABLET (FP) PO SCH (21:19)
[2020-04-20] MEDS: MELATONIN 5 MG TABLETS PO SCH (21:19)
[2020-04-21] MEDS ORDERED: METHADONE HCL 10 MG TABLET ONE (03:21)
[2020-04-21] MEDS ORDERED: METHADONE HCL 40 MG DISPERSABLE TABLET ONE (03:21)
[2020-04-21] MEDS: METHADONE 40 MG, METHADONE 20 MG PO SCH (06:25)
[2020-04-21] MEDS: METHOCARBAMOL 500 MG TABLET PO SCH ×3 (06:25→21:28)
[2020-04-21] MEDS: hydrOXYzine PAMOATE 50 MG CAPSULE (FP) PO PRN ×3 (06:25→21:28)
[2020-04-21] MEDS: PRENATAL VITAMINS W/ FOLIC ACID TABLET (FP) PO SCH (09:59)
[2020-04-21] MEDS: QUEtiapine FUMARATE 100 MG TABLET (FP) PO SCH ×2 (09:59→21:29)
[2020-04-21] MEDS: NICOTINE 14 MG/24 HOURS TOPICAL PATCH TD SCH (10:00)
[2020-04-21] MEDS: MELATONIN 5 MG TABLETS PO SCH (21:28)
[2020-04-21] MEDS: THIAMINE HCL 100 MG TABLET (FP) PO SCH (21:28)
[2020-04-22] MEDS ORDERED: METHADONE HCL 10 MG TABLET ONE (04:24)
[2020-04-22] MEDS ORDERED: METHADONE HCL 40 MG DISPERSABLE TABLET ONE (04:25)
[2020-04-22] MEDS: METHADONE 40 MG, METHADONE 20 MG PO SCH (06:03)
[2020-04-22] MEDS: METHOCARBAMOL 500 MG TABLET PO SCH ×3 (06:04→21:37)
[2020-04-22] MEDS: hydrOXYzine PAMOATE 50 MG CAPSULE (FP) PO PRN ×3 (06:05→21:37)
[2020-04-22] MEDS: NICOTINE 14 MG/24 HOURS TOPICAL PATCH TD SCH (10:06)
[2020-04-22] MEDS: QUEtiapine FUMARATE 100 MG TABLET (FP) PO SCH ×2 (10:06→21:37)
[2020-04-22] MEDS: PRENATAL VITAMINS W/ FOLIC ACID TABLET (FP) PO SCH (10:06)
[2020-04-22] MEDS: THIAMINE HCL 100 MG TABLET (FP) PO SCH (21:37)
[2020-04-22] MEDS: MELATONIN 5 MG TABLETS PO SCH (21:37)
[2020-04-23] MEDS ORDERED: METHADONE HCL 10 MG TABLET ONE (05:58)
[2020-04-23] MEDS ORDERED: METHADONE HCL 40 MG DISPERSABLE TABLET ONE (05:58)
[2020-04-23] MEDS: METHADONE 40 MG, METHADONE 20 MG PO SCH (06:44)
[2020-04-23] MEDS: METHOCARBAMOL 500 MG TABLET PO SCH ×3 (06:45→21:42)
[2020-04-23] MEDS: hydrOXYzine PAMOATE 50 MG CAPSULE (FP) PO PRN ×3 (06:45→21:42)
[2020-04-23] MEDS: QUEtiapine FUMARATE 100 MG TABLET (FP) PO SCH ×2 (10:00→21:42)
[2020-04-23] MEDS: PRENATAL VITAMINS W/ FOLIC ACID TABLET (FP) PO SCH (10:00)
[2020-04-23] MEDS: NICOTINE 14 MG/24 HOURS TOPICAL PATCH TD SCH (10:01)
[2020-04-23] MEDS: MELATONIN 5 MG TABLETS PO SCH (21:42)
[2020-04-23] MEDS: THIAMINE HCL 100 MG TABLET (FP) PO SCH (21:42)
[2020-04-24] MEDS ORDERED: METHADONE HCL 40 MG DISPERSABLE TABLET ONE (06:04)
[2020-04-24] MEDS ORDERED: METHADONE HCL 10 MG TABLET ONE (06:04)
[2020-04-24] MEDS: METHADONE 40 MG, METHADONE 20 MG PO SCH (06:45)
[2020-04-24] MEDS: hydrOXYzine PAMOATE 50 MG CAPSULE (FP) PO PRN ×3 (06:45→21:50)
[2020-04-24] MEDS: METHOCARBAMOL 500 MG TABLET PO SCH ×3 (06:46→21:50)
[2020-04-24] MEDS: NICOTINE 14 MG/24 HOURS TOPICAL PATCH TD SCH (10:22)
[2020-04-24] MEDS: QUEtiapine FUMARATE 100 MG TABLET (FP) PO SCH ×2 (10:23→21:50)
[2020-04-24] MEDS: PRENATAL VITAMINS W/ FOLIC ACID TABLET (FP) PO SCH (10:23)
[2020-04-24] MEDS: THIAMINE HCL 100 MG TABLET (FP) PO SCH (21:50)
[2020-04-24] MEDS: MELATONIN 5 MG TABLETS PO SCH (21:50)
[2020-04-25] MEDS ORDERED: METHADONE HCL 10 MG TABLET ONE (05:57)
[2020-04-25] MEDS ORDERED: METHADONE HCL 40 MG DISPERSABLE TABLET ONE (05:58)
[2020-04-25] MEDS: METHOCARBAMOL 500 MG TABLET PO SCH ×3 (06:33→21:22)
[2020-04-25] MEDS: METHADONE 40 MG, METHADONE 20 MG PO SCH (06:33)
[2020-04-25] MEDS: NICOTINE 14 MG/24 HOURS TOPICAL PATCH TD SCH (10:06)
[2020-04-25] MEDS: PRENATAL VITAMINS W/ FOLIC ACID TABLET (FP) PO SCH (10:06)
[2020-04-25] MEDS: QUEtiapine FUMARATE 100 MG TABLET (FP) PO SCH ×2 (10:06→21:22)
[2020-04-25] MEDS: hydrOXYzine PAMOATE 50 MG CAPSULE (FP) PO PRN ×2 (10:17→21:22)
[2020-04-25] MEDS: SELENIUM SULFIDE 2.5% LOTION 4 OZ. TP SCH (15:53)
[2020-04-25] MEDS: MELATONIN 5 MG TABLETS PO SCH (21:22)
[2020-04-25] MEDS: THIAMINE HCL 100 MG TABLET (FP) PO SCH (21:22)
[2020-04-26] MEDS ORDERED: METHADONE HCL 10 MG TABLET ONE (03:57)
[2020-04-26] MEDS ORDERED: METHADONE HCL 40 MG DISPERSABLE TABLET ONE (03:58)
[2020-04-26] MEDS: METHOCARBAMOL 500 MG TABLET PO SCH ×4 (06:15→21:38)
[2020-04-26] MEDS: METHADONE 40 MG, METHADONE 20 MG PO SCH (06:15)
[2020-04-26] MEDS: PRENATAL VITAMINS W/ FOLIC ACID TABLET (FP) PO SCH (09:40)
[2020-04-26] MEDS: SELENIUM SULFIDE 2.5% LOTION 4 OZ. TP SCH (09:41)
[2020-04-26] MEDS: QUEtiapine FUMARATE 100 MG TABLET (FP) PO SCH ×2 (09:41→21:38)
[2020-04-26] MEDS: NICOTINE 14 MG/24 HOURS TOPICAL PATCH TD SCH (09:42)
[2020-04-26] MEDS: ACETAMINOPHEN 325 MG TABLET (FP) PO PRN ×2 (14:21→21:39)
[2020-04-26] MEDS: hydrOXYzine PAMOATE 50 MG CAPSULE (FP) PO PRN ×2 (14:38→21:38)
[2020-04-26] MEDS: MELATONIN 5 MG TABLETS PO SCH (21:38)
[2020-04-26] MEDS: THIAMINE HCL 100 MG TABLET (FP) PO SCH (21:39)
[2020-04-27] MEDS ORDERED: METHADONE HCL 40 MG DISPERSABLE TABLET ONE (04:21)
[2020-04-27] MEDS ORDERED: METHADONE HCL 10 MG TABLET ONE (04:21)
[2020-04-27] MEDS: METHADONE 40 MG, METHADONE 20 MG PO SCH (06:02)
[2020-04-27] MEDS: METHOCARBAMOL 500 MG TABLET PO SCH ×3 (06:02→21:23)
[2020-04-27] MEDS: PRENATAL VITAMINS W/ FOLIC ACID TABLET (FP) PO SCH (09:45)
[2020-04-27] MEDS: QUEtiapine FUMARATE 100 MG TABLET (FP) PO SCH ×2 (09:45→21:23)
[2020-04-27] MEDS: SELENIUM SULFIDE 2.5% LOTION 4 OZ. TP SCH (09:46)
[2020-04-27] MEDS: NICOTINE 14 MG/24 HOURS TOPICAL PATCH TD SCH (09:46)
[2020-04-27] MEDS: hydrOXYzine PAMOATE 50 MG CAPSULE (FP) PO PRN ×2 (09:48→21:23)
[2020-04-27] MEDS: MELATONIN 5 MG TABLETS PO SCH (21:23)
[2020-04-27] MEDS: THIAMINE HCL 100 MG TABLET (FP) PO SCH (21:23)
[2020-04-28] MEDS ORDERED: METHADONE HCL 10 MG TABLET ONE (05:00)
[2020-04-28] MEDS ORDERED: METHADONE HCL 40 MG DISPERSABLE TABLET ONE (05:00)
[2020-04-28] MEDS: METHADONE 40 MG, METHADONE 20 MG PO SCH (06:30)
[2020-04-28] MEDS: METHOCARBAMOL 500 MG TABLET PO SCH ×3 (06:31→21:19)
[2020-04-28] MEDS: hydrOXYzine PAMOATE 50 MG CAPSULE (FP) PO PRN ×2 (06:31→10:01)
[2020-04-28] MEDS: QUEtiapine FUMARATE 100 MG TABLET (FP) PO SCH ×2 (10:00→21:19)
[2020-04-28] MEDS: PRENATAL VITAMINS W/ FOLIC ACID TABLET (FP) PO SCH (10:01)
[2020-04-28] MEDS: SELENIUM SULFIDE 2.5% LOTION 4 OZ. TP SCH ×2 (10:01→10:03)
[2020-04-28] MEDS: NICOTINE 14 MG/24 HOURS TOPICAL PATCH TD SCH (10:01)
[2020-04-28] MEDS ORDERED: hydrOXYzine PAMOATE 50 MG CAPSULE (FP) PO PRN (14:20)
[2020-04-28] MEDS ORDERED: COLLOIDAL OATMEAL 1 BAR EACH TP PRN (14:21)
[2020-04-28] MEDS: diphenhydrAMINE HCL 25 MG CAPSULE (FP) PO PRN (21:19)
[2020-04-28] MEDS: THIAMINE HCL 100 MG TABLET (FP) PO SCH (21:19)
[2020-04-28] MEDS: MELATONIN 5 MG TABLETS PO SCH (21:19)
[2020-04-29] MEDS ORDERED: METHADONE HCL 10 MG TABLET ONE (03:41)
[2020-04-29] MEDS ORDERED: METHADONE HCL 40 MG DISPERSABLE TABLET ONE (03:41)
[2020-04-29] MEDS: METHADONE 40 MG, METHADONE 20 MG PO SCH (06:22)
[2020-04-29] MEDS: hydrOXYzine PAMOATE 50 MG CAPSULE (FP) PO PRN (06:22)
[2020-04-29] MEDS: METHOCARBAMOL 500 MG TABLET PO SCH ×3 (06:22→21:11)
[2020-04-29] MEDS ORDERED: MASKS NR ONE (07:36)
[2020-04-29] MEDS: PRENATAL VITAMINS W/ FOLIC ACID TABLET (FP) PO SCH (09:52)
[2020-04-29] MEDS: QUEtiapine FUMARATE 100 MG TABLET (FP) PO SCH ×2 (09:52→21:11)
[2020-04-29] MEDS: NICOTINE 14 MG/24 HOURS TOPICAL PATCH TD SCH (09:52)
[2020-04-29] MEDS: SELENIUM SULFIDE 2.5% LOTION 4 OZ. TP SCH (09:53)
[2020-04-29] MEDS: diphenhydrAMINE HCL 25 MG CAPSULE (FP) PO PRN (21:11)
[2020-04-29] MEDS: MELATONIN 5 MG TABLETS PO SCH (21:11)
[2020-04-29] MEDS: THIAMINE HCL 100 MG TABLET (FP) PO SCH (21:11)
[2020-04-30] MEDS ORDERED: METHADONE HCL 40 MG DISPERSABLE TABLET ONE (03:38)
[2020-04-30] MEDS ORDERED: METHADONE HCL 10 MG TABLET ONE (03:38)
[2020-04-30] MEDS: hydrOXYzine PAMOATE 50 MG CAPSULE (FP) PO PRN ×2 (06:12→13:30)
[2020-04-30] MEDS: METHADONE 40 MG, METHADONE 20 MG PO SCH (06:12)
[2020-04-30] MEDS: METHOCARBAMOL 500 MG TABLET PO SCH ×3 (06:12→21:41)
[2020-04-30] MEDS: PRENATAL VITAMINS W/ FOLIC ACID TABLET (FP) PO SCH (09:52)
[2020-04-30] MEDS: NICOTINE 14 MG/24 HOURS TOPICAL PATCH TD SCH (09:53)
[2020-04-30] MEDS: QUEtiapine FUMARATE 100 MG TABLET (FP) PO SCH ×2 (09:53→21:41)
[2020-04-30] MEDS: SELENIUM SULFIDE 2.5% LOTION 4 OZ. TP SCH (09:54)
[2020-04-30] MEDS: HYDROCORTISONE 1% TOPICAL LOTION 118 ML BOTTLE TP PRN (09:55)
[2020-04-30] MEDS: THIAMINE HCL 100 MG TABLET (FP) PO SCH (21:41)
[2020-04-30] MEDS: MELATONIN 5 MG TABLETS PO SCH (21:41)
[2020-04-30] MEDS: diphenhydrAMINE HCL 25 MG CAPSULE (FP) PO PRN (21:43)
[2020-05-01] MEDS ORDERED: METHADONE HCL 40 MG DISPERSABLE TABLET ONE (03:22)
[2020-05-01] MEDS ORDERED: METHADONE HCL 10 MG TABLET ONE (03:22)
[2020-05-01] MEDS ORDERED: MASKS NR ONE (06:39)
[2020-05-01] MEDS: hydrOXYzine PAMOATE 50 MG CAPSULE (FP) PO PRN ×2 (06:40→13:24)
[2020-05-01] MEDS: METHADONE 40 MG, METHADONE 20 MG PO SCH (06:40)
[2020-05-01] MEDS: METHOCARBAMOL 500 MG TABLET PO SCH ×3 (06:40→22:01)
[2020-05-01] MEDS: PRENATAL VITAMINS W/ FOLIC ACID TABLET (FP) PO SCH (09:38)
[2020-05-01] MEDS: QUEtiapine FUMARATE 100 MG TABLET (FP) PO SCH ×2 (09:38→22:01)
[2020-05-01] MEDS: SELENIUM SULFIDE 2.5% LOTION 4 OZ. TP SCH (09:39)
[2020-05-01] MEDS: NICOTINE 14 MG/24 HOURS TOPICAL PATCH TD SCH (09:40)
[2020-05-01] MEDS: HYDROCORTISONE 1% TOPICAL LOTION 118 ML BOTTLE TP PRN (09:40)
[2020-05-01] MEDS: diphenhydrAMINE HCL 25 MG CAPSULE (FP) PO PRN (22:01)
[2020-05-01] MEDS: THIAMINE HCL 100 MG TABLET (FP) PO SCH (22:01)
[2020-05-01] MEDS: MELATONIN 5 MG TABLETS PO SCH (22:02)
[2020-05-02] MEDS ORDERED: METHADONE HCL 40 MG DISPERSABLE TABLET ONE (04:46)
[2020-05-02] MEDS ORDERED: METHADONE HCL 10 MG TABLET ONE (04:46)
[2020-05-02] MEDS: hydrOXYzine PAMOATE 50 MG CAPSULE (FP) PO PRN (06:31)
[2020-05-02] MEDS: METHADONE 40 MG, METHADONE 20 MG PO SCH (06:31)
[2020-05-02] MEDS: METHOCARBAMOL 500 MG TABLET PO SCH ×3 (06:31→21:30)
[2020-05-02] MEDS: PRENATAL VITAMINS W/ FOLIC ACID TABLET (FP) PO SCH (09:55)
[2020-05-02] MEDS: NICOTINE 14 MG/24 HOURS TOPICAL PATCH TD SCH (09:56)
[2020-05-02] MEDS: QUEtiapine FUMARATE 100 MG TABLET (FP) PO SCH ×2 (09:56→21:30)
[2020-05-02] MEDS: SELENIUM SULFIDE 2.5% LOTION 4 OZ. TP SCH (09:57)
[2020-05-02] MEDS ORDERED: valACYclovir HCL 500 MG TABLET (FP) PO ONE (10:39)
[2020-05-02] MEDS: THIAMINE HCL 100 MG TABLET (FP) PO SCH (21:30)
[2020-05-02] MEDS: MELATONIN 5 MG TABLETS PO SCH (21:30)
[2020-05-02] MEDS: valACYclovir HCL 500 MG TABLET (FP) PO SCH (21:31)
[2020-05-03] MEDS ORDERED: METHADONE HCL 40 MG DISPERSABLE TABLET ONE (05:39)
[2020-05-03] MEDS ORDERED: METHADONE HCL 10 MG TABLET ONE (05:40)
[2020-05-03] MEDS: METHOCARBAMOL 500 MG TABLET PO SCH ×3 (05:55→21:13)
[2020-05-03] MEDS: METHADONE 40 MG, METHADONE 20 MG PO SCH (05:55)
[2020-05-03] MEDS: hydrOXYzine PAMOATE 50 MG CAPSULE (FP) PO PRN (05:57)
[2020-05-03] MEDS: PRENATAL VITAMINS W/ FOLIC ACID TABLET (FP) PO SCH (09:45)
[2020-05-03] MEDS: valACYclovir HCL 500 MG TABLET (FP) PO SCH ×2 (09:45→21:12)
[2020-05-03] MEDS: NICOTINE 14 MG/24 HOURS TOPICAL PATCH TD SCH (09:45)
[2020-05-03] MEDS: QUEtiapine FUMARATE 100 MG TABLET (FP) PO SCH (09:45)
[2020-05-03] MEDS: MELATONIN 5 MG TABLETS PO SCH (21:12)
[2020-05-03] MEDS: THIAMINE HCL 100 MG TABLET (FP) PO SCH (21:12)
[2020-05-03] MEDS: QUEtiapine FUMARATE 200 MG TABLET PO SCH (21:13)
[2020-05-03] MEDS: MIRTAZAPINE 15 MG TABLET (FP) PO SCH (21:13)
[2020-05-04] MEDS ORDERED: METHADONE HCL 40 MG DISPERSABLE TABLET ONE (04:49)
[2020-05-04] MEDS ORDERED: METHADONE HCL 10 MG TABLET ONE (04:49)
[2020-05-04] MEDS: METHOCARBAMOL 500 MG TABLET PO SCH (06:13)
[2020-05-04] MEDS: METHADONE 40 MG, METHADONE 20 MG PO SCH (06:14)
[2020-05-04] MEDS: hydrOXYzine PAMOATE 50 MG CAPSULE (FP) PO PRN (06:14)
[2020-05-04] MEDS: QUEtiapine FUMARATE 100 MG TABLET (FP) PO SCH (10:07)
[2020-05-04] MEDS: PRENATAL VITAMINS W/ FOLIC ACID TABLET (FP) PO SCH (10:07)
[2020-05-04] MEDS: valACYclovir HCL 500 MG TABLET (FP) PO SCH ×2 (10:07→21:05)
[2020-05-04] MEDS: NICOTINE 14 MG/24 HOURS TOPICAL PATCH TD SCH (10:08)
[2020-05-04 12:56] LABS: HIV INTERPRETATION NEGATIVE (NEGATIVE)
[2020-05-04] MEDS: METHOCARBAMOL 750 MG TAB PO SCH ×2 (14:41→21:05)
[2020-05-04] MEDS: MELATONIN 5 MG TABLETS PO SCH (21:05)
[2020-05-04] MEDS: THIAMINE HCL 100 MG TABLET (FP) PO SCH (21:05)
[2020-05-04] MEDS: MIRTAZAPINE 15 MG TABLET (FP) PO SCH (21:05)
[2020-05-04] MEDS: QUEtiapine FUMARATE 200 MG TABLET PO SCH (21:06)
[2020-05-04] MEDS: diphenhydrAMINE HCL 25 MG CAPSULE (FP) PO PRN (21:07)
[2020-05-05] MEDS ORDERED: METHADONE HCL 40 MG DISPERSABLE TABLET ONE (05:41)
[2020-05-05] MEDS ORDERED: METHADONE HCL 10 MG TABLET ONE (05:42)
[2020-05-05] MEDS: hydrOXYzine PAMOATE 50 MG CAPSULE (FP) PO PRN (06:10)
[2020-05-05] MEDS: METHOCARBAMOL 750 MG TAB PO SCH ×3 (06:10→21:56)
[2020-05-05] MEDS: METHADONE 40 MG, METHADONE 20 MG PO SCH (06:11)
[2020-05-05] MEDS ORDERED: PT OWN MED DRAWER 7, Y5N ONE (08:56)
[2020-05-05] MEDS: valACYclovir HCL 500 MG TABLET (FP) PO SCH ×2 (09:32→21:57)
[2020-05-05] MEDS: QUEtiapine FUMARATE 100 MG TABLET (FP) PO SCH (09:32)
[2020-05-05] MEDS: PRENATAL VITAMINS W/ FOLIC ACID TABLET (FP) PO SCH (09:32)
[2020-05-05] MEDS: NICOTINE 14 MG/24 HOURS TOPICAL PATCH TD SCH (09:33)
[2020-05-05] MEDS: THIAMINE HCL 100 MG TABLET (FP) PO SCH (21:54)
[2020-05-05] MEDS: diphenhydrAMINE HCL 25 MG CAPSULE (FP) PO PRN (21:56)
[2020-05-05] MEDS: QUEtiapine FUMARATE 200 MG TABLET PO SCH (21:56)
[2020-05-05] MEDS: MIRTAZAPINE 15 MG TABLET (FP) PO SCH (21:56)
[2020-05-05] MEDS: MELATONIN 5 MG TABLETS PO SCH (21:57)
[2020-05-06] MEDS ORDERED: METHADONE HCL 40 MG DISPERSABLE TABLET ONE (05:10)
[2020-05-06] MEDS ORDERED: METHADONE HCL 10 MG TABLET ONE (05:10)
[2020-05-06] MEDS: METHOCARBAMOL 750 MG TAB PO SCH ×3 (06:32→21:03)
[2020-05-06] MEDS: METHADONE 40 MG, METHADONE 20 MG PO SCH (06:32)
[2020-05-06] MEDS: hydrOXYzine PAMOATE 50 MG CAPSULE (FP) PO PRN (06:32)
[2020-05-06] MEDS ORDERED: PT OWN MED DRAWER 7, Y5N ONE (09:10)
[2020-05-06] MEDS: NICOTINE 14 MG/24 HOURS TOPICAL PATCH TD SCH (10:21)
[2020-05-06] MEDS: PRENATAL VITAMINS W/ FOLIC ACID TABLET (FP) PO SCH (10:22)
[2020-05-06] MEDS: valACYclovir HCL 500 MG TABLET (FP) PO SCH ×2 (10:22→21:03)
[2020-05-06] MEDS: QUEtiapine FUMARATE 100 MG TABLET (FP) PO SCH (10:22)
[2020-05-06] MEDS: QUEtiapine FUMARATE 200 MG TABLET PO SCH (21:03)
[2020-05-06] MEDS: THIAMINE HCL 100 MG TABLET (FP) PO SCH (21:03)
[2020-05-06] MEDS: MELATONIN 5 MG TABLETS PO SCH (21:03)
[2020-05-06] MEDS: MIRTAZAPINE 15 MG TABLET (FP) PO SCH (21:03)
[2020-05-06] MEDS: diphenhydrAMINE HCL 25 MG CAPSULE (FP) PO PRN (21:04)
[2020-05-07] MEDS ORDERED: METHADONE HCL 40 MG DISPERSABLE TABLET ONE (03:27)
[2020-05-07] MEDS ORDERED: METHADONE HCL 10 MG TABLET ONE (03:27)
[2020-05-07] MEDS: METHOCARBAMOL 750 MG TAB PO SCH ×3 (06:04→21:31)
[2020-05-07] MEDS: METHADONE 40 MG, METHADONE 20 MG PO SCH (06:04)
[2020-05-07] MEDS: hydrOXYzine PAMOATE 50 MG CAPSULE (FP) PO PRN (06:06)
[2020-05-07] MEDS: valACYclovir HCL 500 MG TABLET (FP) PO SCH ×2 (09:54→21:32)
[2020-05-07] MEDS: PRENATAL VITAMINS W/ FOLIC ACID TABLET (FP) PO SCH (09:54)
[2020-05-07] MEDS: QUEtiapine FUMARATE 100 MG TABLET (FP) PO SCH (09:54)
[2020-05-07] MEDS: NICOTINE 14 MG/24 HOURS TOPICAL PATCH TD SCH (09:54)
[2020-05-07] MEDS: MELATONIN 5 MG TABLETS PO SCH (21:32)
[2020-05-07] MEDS: QUEtiapine FUMARATE 200 MG TABLET PO SCH (21:32)
[2020-05-07] MEDS: MIRTAZAPINE 15 MG TABLET (FP) PO SCH (21:32)
[2020-05-07] MEDS: THIAMINE HCL 100 MG TABLET (FP) PO SCH (21:32)
[2020-05-07] MEDS: diphenhydrAMINE HCL 25 MG CAPSULE (FP) PO PRN (21:32)
[2020-05-08] MEDS ORDERED: METHADONE HCL 10 MG TABLET ONE (03:23)
[2020-05-08] MEDS ORDERED: METHADONE HCL 40 MG DISPERSABLE TABLET ONE (03:23)
[2020-05-08] MEDS: METHOCARBAMOL 750 MG TAB PO SCH ×3 (05:57→23:50)
[2020-05-08] MEDS: METHADONE 40 MG, METHADONE 20 MG PO SCH (05:57)
[2020-05-08] MEDS: hydrOXYzine PAMOATE 50 MG CAPSULE (FP) PO PRN (05:57)
[2020-05-08] MEDS ORDERED: PT OWN MED DRAWER 7, Y5N ONE (09:08)
[2020-05-08] MEDS: NICOTINE 14 MG/24 HOURS TOPICAL PATCH TD SCH (09:36)
[2020-05-08] MEDS: QUEtiapine FUMARATE 100 MG TABLET (FP) PO SCH (09:36)
[2020-05-08] MEDS: valACYclovir HCL 500 MG TABLET (FP) PO SCH ×2 (09:36→23:50)
[2020-05-08] MEDS: PRENATAL VITAMINS W/ FOLIC ACID TABLET (FP) PO SCH (09:36)
[2020-05-08] MEDS: MELATONIN 5 MG TABLETS PO SCH (23:50)
[2020-05-08] MEDS: QUEtiapine FUMARATE 200 MG TABLET PO SCH (23:50)
[2020-05-08] MEDS: MIRTAZAPINE 15 MG TABLET (FP) PO SCH (23:50)
[2020-05-08] MEDS: THIAMINE HCL 100 MG TABLET (FP) PO SCH (23:50)
[2020-05-09] MEDS ORDERED: METHADONE HCL 40 MG DISPERSABLE TABLET ONE (04:35)
[2020-05-09] MEDS ORDERED: METHADONE HCL 10 MG TABLET ONE (04:35)
[2020-05-09] MEDS: METHADONE 40 MG, METHADONE 20 MG PO SCH (06:14)
[2020-05-09] MEDS: METHOCARBAMOL 750 MG TAB PO SCH ×3 (06:14→21:55)
[2020-05-09] MEDS: hydrOXYzine PAMOATE 50 MG CAPSULE (FP) PO PRN (06:14)
[2020-05-09] MEDS: QUEtiapine FUMARATE 100 MG TABLET (FP) PO SCH (10:06)
[2020-05-09] MEDS: valACYclovir HCL 500 MG TABLET (FP) PO SCH (10:06)
[2020-05-09] MEDS: PRENATAL VITAMINS W/ FOLIC ACID TABLET (FP) PO SCH (10:06)
[2020-05-09] MEDS: NICOTINE 14 MG/24 HOURS TOPICAL PATCH TD SCH (10:06)
[2020-05-09] MEDS: MIRTAZAPINE 15 MG TABLET (FP) PO SCH (21:55)
[2020-05-09] MEDS: QUEtiapine FUMARATE 200 MG TABLET PO SCH (21:55)
[2020-05-09] MEDS: THIAMINE HCL 100 MG TABLET (FP) PO SCH (21:55)
[2020-05-09] MEDS: MELATONIN 5 MG TABLETS PO SCH (21:55)
[2020-05-09] MEDS: diphenhydrAMINE HCL 25 MG CAPSULE (FP) PO PRN (21:58)
[2020-05-10] MEDS ORDERED: METHADONE HCL 40 MG DISPERSABLE TABLET ONE (04:24)
[2020-05-10] MEDS ORDERED: METHADONE HCL 10 MG TABLET ONE (04:25)
[2020-05-10] MEDS: METHOCARBAMOL 750 MG TAB PO SCH ×3 (05:56→21:04)
[2020-05-10] MEDS: hydrOXYzine PAMOATE 50 MG CAPSULE (FP) PO PRN (05:56)
[2020-05-10] MEDS: METHADONE 40 MG, METHADONE 20 MG PO SCH (05:56)
[2020-05-10] MEDS: NICOTINE 14 MG/24 HOURS TOPICAL PATCH TD SCH (09:35)
[2020-05-10] MEDS: PRENATAL VITAMINS W/ FOLIC ACID TABLET (FP) PO SCH (09:35)
[2020-05-10] MEDS: QUEtiapine FUMARATE 100 MG TABLET (FP) PO SCH (09:35)
[2020-05-10] MEDS: THIAMINE HCL 100 MG TABLET (FP) PO SCH (21:04)
[2020-05-10] MEDS: MELATONIN 5 MG TABLETS PO SCH (21:04)
[2020-05-10] MEDS: diphenhydrAMINE HCL 25 MG CAPSULE (FP) PO PRN (21:04)
[2020-05-10] MEDS: MIRTAZAPINE 15 MG TABLET (FP) PO SCH (21:04)
[2020-05-10] MEDS: QUEtiapine FUMARATE 200 MG TABLET PO SCH (21:04)
[2020-05-11] MEDS ORDERED: METHADONE HCL 10 MG TABLET ONE (04:19)
[2020-05-11] MEDS ORDERED: METHADONE HCL 40 MG DISPERSABLE TABLET ONE (04:19)
[2020-05-11] MEDS: METHOCARBAMOL 750 MG TAB PO SCH ×3 (06:26→21:45)
[2020-05-11] MEDS: METHADONE 40 MG, METHADONE 20 MG PO SCH (06:26)
[2020-05-11] MEDS: hydrOXYzine PAMOATE 50 MG CAPSULE (FP) PO PRN (06:26)
[2020-05-11] MEDS: QUEtiapine FUMARATE 100 MG TABLET (FP) PO SCH (09:50)
[2020-05-11] MEDS: NICOTINE 14 MG/24 HOURS TOPICAL PATCH TD SCH (09:51)
[2020-05-11] MEDS: PRENATAL VITAMINS W/ FOLIC ACID TABLET (FP) PO SCH (09:51)
[2020-05-11] MEDS: MELATONIN 5 MG TABLETS PO SCH (21:45)
[2020-05-11] MEDS: THIAMINE HCL 100 MG TABLET (FP) PO SCH (21:45)
[2020-05-11] MEDS: QUEtiapine FUMARATE 200 MG TABLET PO SCH (21:45)
[2020-05-11] MEDS: MIRTAZAPINE 15 MG TABLET (FP) PO SCH (21:45)
[2020-05-11] MEDS: diphenhydrAMINE HCL 25 MG CAPSULE (FP) PO PRN (21:45)
[2020-05-12] MEDS ORDERED: METHADONE HCL 10 MG TABLET ONE (03:20)
[2020-05-12] MEDS ORDERED: METHADONE HCL 40 MG DISPERSABLE TABLET ONE (03:20)
[2020-05-12] MEDS: METHADONE 40 MG, METHADONE 20 MG PO SCH (06:32)
[2020-05-12] MEDS: hydrOXYzine PAMOATE 50 MG CAPSULE (FP) PO PRN (06:32)
[2020-05-12] MEDS: METHOCARBAMOL 750 MG TAB PO SCH ×3 (06:32→21:10)
[2020-05-12] MEDS: QUEtiapine FUMARATE 100 MG TABLET (FP) PO SCH (10:45)
[2020-05-12] MEDS: PRENATAL VITAMINS W/ FOLIC ACID TABLET (FP) PO SCH (10:45)
[2020-05-12] MEDS: NICOTINE 14 MG/24 HOURS TOPICAL PATCH TD SCH (10:46)
[2020-05-12] MEDS: QUEtiapine FUMARATE 200 MG TABLET PO SCH (21:10)
[2020-05-12] MEDS: THIAMINE HCL 100 MG TABLET (FP) PO SCH (21:10)
[2020-05-12] MEDS: MIRTAZAPINE 15 MG TABLET (FP) PO SCH (21:10)
[2020-05-12] MEDS: MELATONIN 5 MG TABLETS PO SCH (21:10)
[2020-05-12] MEDS: diphenhydrAMINE HCL 25 MG CAPSULE (FP) PO PRN (21:10)
[2020-05-13] MEDS ORDERED: METHADONE HCL 40 MG DISPERSABLE TABLET ONE (03:16)
[2020-05-13] MEDS ORDERED: METHADONE HCL 10 MG TABLET ONE (03:16)
[2020-05-13] MEDS: METHADONE 40 MG, METHADONE 20 MG PO SCH (05:54)
[2020-05-13] MEDS: hydrOXYzine PAMOATE 50 MG CAPSULE (FP) PO PRN (05:54)
[2020-05-13] MEDS: METHOCARBAMOL 750 MG TAB PO SCH ×3 (05:55→21:43)
[2020-05-13] MEDS: QUEtiapine FUMARATE 100 MG TABLET (FP) PO SCH (10:43)
[2020-05-13] MEDS: PRENATAL VITAMINS W/ FOLIC ACID TABLET (FP) PO SCH (10:43)
[2020-05-13] MEDS: NICOTINE 14 MG/24 HOURS TOPICAL PATCH TD SCH (10:44)
[2020-05-13] MEDS: THIAMINE HCL 100 MG TABLET (FP) PO SCH (21:42)
[2020-05-13] MEDS: QUEtiapine FUMARATE 200 MG TABLET PO SCH (21:42)
[2020-05-13] MEDS: MELATONIN 5 MG TABLETS PO SCH (21:42)
[2020-05-13] MEDS: MIRTAZAPINE 15 MG TABLET (FP) PO SCH (21:42)
[2020-05-13] MEDS: diphenhydrAMINE HCL 25 MG CAPSULE (FP) PO PRN (21:43)
[2020-05-14] MEDS ORDERED: METHADONE HCL 10 MG TABLET ONE (03:25)
[2020-05-14] MEDS ORDERED: METHADONE HCL 40 MG DISPERSABLE TABLET ONE (03:25)
[2020-05-14] MEDS: METHOCARBAMOL 750 MG TAB PO SCH ×3 (05:58→21:55)
[2020-05-14] MEDS: hydrOXYzine PAMOATE 50 MG CAPSULE (FP) PO PRN (05:58)
[2020-05-14] MEDS: METHADONE 40 MG, METHADONE 20 MG PO SCH (05:58)
[2020-05-14] MEDS: PRENATAL VITAMINS W/ FOLIC ACID TABLET (FP) PO SCH (09:54)
[2020-05-14] MEDS: NICOTINE 14 MG/24 HOURS TOPICAL PATCH TD SCH (09:54)
[2020-05-14] MEDS: QUEtiapine FUMARATE 100 MG TABLET (FP) PO SCH (09:54)
[2020-05-14] MEDS: MELATONIN 5 MG TABLETS PO SCH (21:54)
[2020-05-14] MEDS: THIAMINE HCL 100 MG TABLET (FP) PO SCH (21:54)
[2020-05-14] MEDS: MIRTAZAPINE 15 MG TABLET (FP) PO SCH (21:56)
[2020-05-14] MEDS: QUEtiapine FUMARATE 200 MG TABLET PO SCH (21:56)
[2020-05-15] MEDS ORDERED: METHADONE HCL 40 MG DISPERSABLE TABLET ONE (04:06)
[2020-05-15] MEDS ORDERED: METHADONE HCL 10 MG TABLET ONE (04:07)
[2020-05-15] MEDS: METHOCARBAMOL 750 MG TAB PO SCH ×3 (06:17→21:14)
[2020-05-15] MEDS: METHADONE 40 MG, METHADONE 20 MG PO SCH (06:17)
[2020-05-15] MEDS: hydrOXYzine PAMOATE 50 MG CAPSULE (FP) PO PRN (09:40)
[2020-05-15] MEDS: PRENATAL VITAMINS W/ FOLIC ACID TABLET (FP) PO SCH (09:40)
[2020-05-15] MEDS: QUEtiapine FUMARATE 100 MG TABLET (FP) PO SCH (09:40)
[2020-05-15] MEDS: NICOTINE 14 MG/24 HOURS TOPICAL PATCH TD SCH (10:45)
[2020-05-15] MEDS: QUEtiapine FUMARATE 200 MG TABLET PO SCH (21:13)
[2020-05-15] MEDS: MELATONIN 5 MG TABLETS PO SCH (21:14)
[2020-05-15] MEDS: MIRTAZAPINE 15 MG TABLET (FP) PO SCH (21:14)
[2020-05-15] MEDS: THIAMINE HCL 100 MG TABLET (FP) PO SCH (21:14)
[2020-05-16] MEDS ORDERED: METHADONE HCL 40 MG DISPERSABLE TABLET ONE (03:13)
[2020-05-16] MEDS ORDERED: METHADONE HCL 10 MG TABLET ONE (03:13)
[2020-05-16] MEDS: METHADONE 40 MG, METHADONE 20 MG PO SCH (06:21)
[2020-05-16] MEDS: METHOCARBAMOL 750 MG TAB PO SCH ×3 (06:21→21:14)
[2020-05-16] MEDS: ACETAMINOPHEN 325 MG TABLET (FP) PO PRN (06:21)
[2020-05-16] MEDS: hydrOXYzine PAMOATE 50 MG CAPSULE (FP) PO PRN (06:21)
[2020-05-16] MEDS: NICOTINE 14 MG/24 HOURS TOPICAL PATCH TD SCH (10:22)
[2020-05-16] MEDS: QUEtiapine FUMARATE 100 MG TABLET (FP) PO SCH (10:22)
[2020-05-16] MEDS: PRENATAL VITAMINS W/ FOLIC ACID TABLET (FP) PO SCH (10:22)
[2020-05-16] MEDS ORDERED: PT OWN MED DRAWER 7, Y5N ONE (11:48)
[2020-05-16] MEDS: MIRTAZAPINE 15 MG TABLET (FP) PO SCH (21:14)
[2020-05-16] MEDS: QUEtiapine FUMARATE 200 MG TABLET PO SCH (21:15)
[2020-05-16] MEDS: diphenhydrAMINE HCL 25 MG CAPSULE (FP) PO PRN (21:15)
[2020-05-16] MEDS: THIAMINE HCL 100 MG TABLET (FP) PO SCH (21:16)
[2020-05-16] MEDS: MELATONIN 5 MG TABLETS PO SCH (21:16)
[2020-05-17] MEDS ORDERED: METHADONE HCL 10 MG TABLET ONE (04:01)
[2020-05-17] MEDS ORDERED: METHADONE HCL 40 MG DISPERSABLE TABLET ONE (04:01)
[2020-05-17] MEDS ORDERED: METHADONE HCL 5 MG TABLET PO SCH (06:00)
[2020-05-17] MEDS ORDERED: METHADONE 40 MG, METHADONE 20 MG PO SCH (06:00)
[2020-05-17] MEDS: METHOCARBAMOL 750 MG TAB PO SCH (06:03)
[2020-05-17 07:22] VITALS: BP 136/85; PULSE 77; TEMP 97.9
[2020-05-17] MEDS: NICOTINE 14 MG/24 HOURS TOPICAL PATCH TD SCH (09:09)
[2020-05-17] MEDS: PRENATAL VITAMINS W/ FOLIC ACID TABLET (FP) PO SCH (09:09)
[2020-05-17] MEDS: QUEtiapine FUMARATE 100 MG TABLET (FP) PO SCH (09:10)
== END 2020-05-17 09:44 | disposition home or self-care (01) | DRG 772 ==
LOC: YASASADMIT 14:30 → Y5N 14:33 → Y3W 05-02 20:15
PROVIDERS: ADMIT Allergy & Immunology; ATTEND Allergy & Immunology
PROC: HZ42ZZZ Group Counseling for Substance Abuse Treatment, Cognitive-Behavioral (ICD-10-PCS; principal; 2020-04-17)
DX: F10.20 Alcohol dependence, uncomplicated (principal); F11.20 Opioid dependence, uncomplicated; F13.20 Sedative, hypnotic or anxiolytic dependence, uncomplicated; F12.20 Cannabis dependence, uncomplicated; F17.210 Nicotine dependence, cigarettes, uncomplicated; F19.280 Other psychoactive substance dependence with psychoactive substance-induced anxiety disorder; F19.282 Other psychoactive substance dependence with psychoactive substance-induced sleep disorder; F19.24 Other psychoactive substance dependence with psychoactive substance-induced mood disorder; F60.9 Personality disorder, unspecified; I10 Essential (primary) hypertension; J45.20 Mild intermittent asthma, uncomplicated; L29.8 Other pruritus; A60.00 Herpesviral infection of urogenital system, unspecified; R21 Rash and other nonspecific skin eruption; Z62.810 Personal history of physical and sexual abuse in childhood; Z88.6 Allergy status to analgesic agent; Z98.890 Other specified postprocedural states; B18.2 Chronic viral hepatitis C
CPT/HCPCS: 36415; 87389; C9803; G0008; Q2036; U0003

== ENCOUNTER 2020-07-02 11:36 | Inpatient (IN) | payer OTHER ==
[2020-07-02 12:03] VITALS: BMI 30.3
[2020-07-02] MEDS ORDERED: MENTHOL/PHENOL 1 EACH UD MM PRN (19:37)
[2020-07-02] MEDS ORDERED: METHOCARBAMOL 500 MG TABLET PO PRN (19:37)
[2020-07-02] MEDS ORDERED: MAG HYDROX/AL HYDROX/SIMETH 30 ML UNIT-DOSE CUP PO PRN (19:37)
[2020-07-02] MEDS ORDERED: NICOTINE POLACRILEX 2 MG GUM BUC PRN (19:37)
[2020-07-02] MEDS ORDERED: MAGNESIUM CITRATE 300 ML BOTTLE PO PRN (19:37)
[2020-07-02] MEDS ORDERED: BISMUTH SUBSALICYLATE 524 MG/30 ML UD PO PRN (19:37)
[2020-07-02] MEDS ORDERED: MAGNESIUM HYDROX 2400MG/30ML ORAL SUSPENSION 30 ML CUP PO PRN (19:37)
[2020-07-02] MEDS ORDERED: ONDANSETRON *ODT* 4 MG TABLET SL PRN (19:37)
[2020-07-02] MEDS ORDERED: IBUPROFEN 400 MG TABLET (FP) PO PRN (19:37)
[2020-07-02] MEDS ORDERED: ACETAMINOPHEN 325 MG TABLET (FP) PO PRN ×2 (19:37)
[2020-07-02] MEDS ORDERED: ALBUTEROL SO4 HFA INHALER IH PRN (19:39)
[2020-07-02] MEDS: hydrOXYzine PAMOATE 25 MG CAPSULE (FP) PO SCH (23:15)
[2020-07-02] MEDS: THIAMINE HCL 100 MG TABLET (FP) PO SCH (23:15)
[2020-07-02] MEDS: MELATONIN 5 MG TABLETS PO SCH (23:15)
[2020-07-03] MEDS: diazePAM 5 MG TABLET PO SCH ×6 (00:02→23:05)
[2020-07-03] MEDS ORDERED: METHADONE HCL 10 MG TABLET PO ONE (06:00)
[2020-07-03] MEDS ORDERED: METHADONE 120 MG, METHADONE 10 MG PO ONE (06:00)
[2020-07-03] MEDS: hydrOXYzine PAMOATE 25 MG CAPSULE (FP) PO SCH ×6 (06:21→22:58)
[2020-07-03] MEDS ORDERED: METHADONE HCL 40 MG DISPERSABLE TABLET ONE (06:22)
[2020-07-03] MEDS ORDERED: METHADONE HCL 10 MG TABLET ONE (06:22)
[2020-07-03] MEDS: NICOTINE 7 MG/24 HOURS TOPICAL PATCH TD SCH (11:44)
[2020-07-03] MEDS: PRENATAL VITAMINS W/ FOLIC ACID TABLET (FP) PO SCH (11:44)
[2020-07-03 11:48] LABS: HEMATOCRIT 39.7 % (35.4-49); HEMOGLOBIN 13.6 GM/dL (11.7-16.9); MCH 29.7 pg (25.7-33.7); MCHC 34.2 g/dl (32.0-35.9); MEAN CELL VOLUME 86.8 fl (80-96); MEAN PLT VOLUME 9.3 fl (7.5-11.1); PLATELET COUNT 283 K/MM3 (134-434); RBC 4.58 M/mm3 (4.00-5.60); RDW 14.5 % (11.9-15.9); WHITE BLOOD COUNT 8.1 K/mm3 (4.0-10.0)
[2020-07-03 11:51] LABS: CALCIUM 9.4 mg/dL (8.5-10.1)
[2020-07-03 11:52] LABS: BLOOD UREA NITROGEN 8.9 mg/dL (7-18)
[2020-07-03 11:53] LABS: ALBUMIN 3.4 g/dl (3.4-5.0)
[2020-07-03 11:55] LABS: CREATININE 0.6 mg/dL (0.55-1.3)
[2020-07-03 11:57] LABS: BILIRUBIN,TOTAL 1.1 mg/dL (0.2-1); TOT PROT 7.3 g/dl (6.4-8.2)
[2020-07-03] MEDS: MELATONIN 5 MG TABLETS PO SCH (22:58)
[2020-07-03] MEDS: THIAMINE HCL 100 MG TABLET (FP) PO SCH (22:59)
[2020-07-04] MEDS: diazePAM 5 MG TABLET PO SCH ×3 (05:36→22:57)
[2020-07-04] MEDS: hydrOXYzine PAMOATE 25 MG CAPSULE (FP) PO SCH ×5 (05:36→22:56)
[2020-07-04] MEDS ORDERED: METHADONE HCL 10 MG TABLET PO SCH (09:15)
[2020-07-04] MEDS ORDERED: METHADONE HCL 10 MG TABLET ONE (09:33)
[2020-07-04] MEDS ORDERED: METHADONE HCL 40 MG DISPERSABLE TABLET ONE (09:34)
[2020-07-04] MEDS: METHADONE 120 MG, METHADONE 10 MG PO SCH (09:36)
[2020-07-04] MEDS: diazePAM 5 MG TABLET PO PRN ×2 (09:38→18:20)
[2020-07-04] MEDS: NICOTINE 7 MG/24 HOURS TOPICAL PATCH TD SCH (09:39)
[2020-07-04] MEDS: PRENATAL VITAMINS W/ FOLIC ACID TABLET (FP) PO SCH (09:40)
[2020-07-04] MEDS: THIAMINE HCL 100 MG TABLET (FP) PO SCH (22:56)
[2020-07-04] MEDS: MELATONIN 5 MG TABLETS PO SCH (22:56)
[2020-07-05] MEDS ORDERED: METHADONE HCL 40 MG DISPERSABLE TABLET ONE (04:41)
[2020-07-05] MEDS ORDERED: METHADONE HCL 10 MG TABLET ONE (04:41)
[2020-07-05] MEDS: METHADONE 120 MG, METHADONE 10 MG PO SCH (05:14)
[2020-07-05] MEDS: diazePAM 5 MG TABLET PO SCH ×2 (05:15→18:02)
[2020-07-05] MEDS: hydrOXYzine PAMOATE 25 MG CAPSULE (FP) PO SCH ×5 (05:17→23:10)
[2020-07-05] MEDS: PRENATAL VITAMINS W/ FOLIC ACID TABLET (FP) PO SCH (09:19)
[2020-07-05] MEDS: NICOTINE 7 MG/24 HOURS TOPICAL PATCH TD SCH (09:19)
[2020-07-05] MEDS: diazePAM 5 MG TABLET PO PRN (09:20)
[2020-07-05] MEDS: THIAMINE HCL 100 MG TABLET (FP) PO SCH (23:10)
[2020-07-05] MEDS: MELATONIN 5 MG TABLETS PO SCH (23:10)
[2020-07-06] MEDS ORDERED: METHADONE HCL 40 MG DISPERSABLE TABLET ONE (04:34)
[2020-07-06] MEDS ORDERED: METHADONE HCL 10 MG TABLET ONE (04:34)
[2020-07-06] MEDS: hydrOXYzine PAMOATE 25 MG CAPSULE (FP) PO SCH ×2 (05:53→10:28)
[2020-07-06] MEDS: METHADONE 120 MG, METHADONE 10 MG PO SCH (05:54)
[2020-07-06] MEDS ORDERED: diazePAM 5 MG TABLET PO ONE (06:00)
[2020-07-06 09:04] VITALS: BP 146/94; PULSE 74; TEMP 96.6
[2020-07-06] MEDS: PRENATAL VITAMINS W/ FOLIC ACID TABLET (FP) PO SCH (10:28)
[2020-07-06] MEDS: NICOTINE 7 MG/24 HOURS TOPICAL PATCH TD SCH (10:29)
== END 2020-07-06 13:45 | disposition other institution (70) | DRG 773 ==
LOC: YASAS 11:36 → Y3N 18:52
PROVIDERS: ADMIT Allergy & Immunology; ATTEND Allergy & Immunology
PROC: HZ2ZZZZ Detoxification Services for Substance Abuse Treatment (ICD-10-PCS; principal; 2020-07-02)
DX: F10.230 Alcohol dependence with withdrawal, uncomplicated (principal); F11.20 Opioid dependence, uncomplicated; F13.20 Sedative, hypnotic or anxiolytic dependence, uncomplicated; F12.20 Cannabis dependence, uncomplicated; F17.210 Nicotine dependence, cigarettes, uncomplicated; E80.6 Other disorders of bilirubin metabolism; I10 Essential (primary) hypertension; J45.909 Unspecified asthma, uncomplicated; B18.2 Chronic viral hepatitis C; R74.01 Elevation of levels of liver transaminase levels; Z56.0 Unemployment, unspecified; Z59.0 Homelessness; Z88.6 Allergy status to analgesic agent; Z98.890 Other specified postprocedural states
CPT/HCPCS: 36415; 80053; 82247; 84450; 85027; 86780; C9803; U0003

== ENCOUNTER 2020-07-02 12:32 | Emergency (ER) | payer OTHER ==
[2020-07-02 12:48] VITALS: TEMP 98; BMI 21.1
[2020-07-02 14:01] VITALS: BP 127/87; PULSE 86
== END 2020-07-02 13:58 | disposition home or self-care (01) ==
LOC: JER 12:32
DX: F15.90 Other stimulant use, unspecified, uncomplicated (principal); F11.90 Opioid use, unspecified, uncomplicated
CPT/HCPCS: 99283-25

== ENCOUNTER 2020-07-06 13:49 | Inpatient (IN) | payer OTHER ==
[2020-07-06] MEDS ORDERED: MENTHOL/PHENOL 1 EACH UD MM PRN (15:29)
[2020-07-06] MEDS ORDERED: P-EPHED 60MG/TRIPROLIDI 2.5MG TABLET PO PRN (15:29)
[2020-07-06] MEDS ORDERED: NICOTINE POLACRILEX 2 MG GUM BUC PRN (15:29)
[2020-07-06] MEDS ORDERED: guaiFENesin 200 MG/10 ML 10 ML UNIT-DOSE CUPS PO PRN (15:29)
[2020-07-06] MEDS ORDERED: LOPERAMIDE HCL 2 MG CAPSULE PO PRN (15:29)
[2020-07-06] MEDS ORDERED: MAG HYDROX/AL HYDROX/SIMETH 30 ML UNIT-DOSE CUP PO PRN (15:29)
[2020-07-06] MEDS ORDERED: MAGNESIUM HYDROX 2400MG/30ML ORAL SUSPENSION 30 ML CUP PO PRN (15:29)
[2020-07-06] MEDS ORDERED: MAGNESIUM CITRATE 300 ML BOTTLE PO PRN (15:29)
[2020-07-06] MEDS: THIAMINE HCL 100 MG TABLET (FP) PO SCH (22:06)
[2020-07-06] MEDS: MELATONIN 5 MG TABLETS PO SCH (22:06)
[2020-07-06] MEDS: METHYL SALICYLATE/MENTHOL OINT 30 GM TUBE TP SCH (22:06)
[2020-07-07] MEDS ORDERED: METHADONE HCL 10 MG TABLET ONE (05:55)
[2020-07-07] MEDS ORDERED: METHADONE HCL 40 MG DISPERSABLE TABLET ONE (05:55)
[2020-07-07] MEDS ORDERED: METHADONE HCL 40 MG DISPERSABLE TABLET PO SCH (06:00)
[2020-07-07] MEDS: METHADONE 120 MG, METHADONE 10 MG PO SCH (06:08)
[2020-07-07] MEDS: PRENATAL VITAMINS W/ FOLIC ACID TABLET (FP) PO SCH (10:52)
[2020-07-07] MEDS: METHYL SALICYLATE/MENTHOL OINT 30 GM TUBE TP SCH ×2 (10:52→22:10)
[2020-07-07] MEDS: NICOTINE 7 MG/24 HOURS TOPICAL PATCH TD SCH (10:53)
[2020-07-07] MEDS: QUEtiapine FUMARATE 100 MG TABLET (FP) PO SCH (22:10)
[2020-07-07] MEDS: MELATONIN 5 MG TABLETS PO SCH (22:10)
[2020-07-07] MEDS: THIAMINE HCL 100 MG TABLET (FP) PO SCH (22:11)
[2020-07-08] MEDS ORDERED: METHADONE HCL 10 MG TABLET ONE (05:19)
[2020-07-08] MEDS ORDERED: METHADONE HCL 40 MG DISPERSABLE TABLET ONE (05:20)
[2020-07-08] MEDS: METHADONE 120 MG, METHADONE 10 MG PO SCH (06:11)
[2020-07-08] MEDS: NICOTINE 7 MG/24 HOURS TOPICAL PATCH TD SCH (10:02)
[2020-07-08] MEDS: PRENATAL VITAMINS W/ FOLIC ACID TABLET (FP) PO SCH (10:02)
[2020-07-08] MEDS: METHYL SALICYLATE/MENTHOL OINT 30 GM TUBE TP SCH ×2 (10:03→21:22)
[2020-07-08] MEDS: VITAMINS A AND D TOPICAL OINTMENT 60 GM TUBE TP SCH (12:18)
[2020-07-08] MEDS: THIAMINE HCL 100 MG TABLET (FP) PO SCH (21:21)
[2020-07-08] MEDS: MELATONIN 5 MG TABLETS PO SCH (21:21)
[2020-07-08] MEDS: QUEtiapine FUMARATE 100 MG TABLET (FP) PO SCH (21:22)
[2020-07-08] MEDS: METHOCARBAMOL 500 MG TABLET PO PRN (21:22)
[2020-07-09] MEDS ORDERED: METHADONE HCL 10 MG TABLET ONE (03:48)
[2020-07-09] MEDS ORDERED: METHADONE HCL 40 MG DISPERSABLE TABLET ONE (03:48)
[2020-07-09] MEDS: METHADONE 120 MG, METHADONE 10 MG PO SCH (06:14)
[2020-07-09] MEDS ORDERED: PT OWN MED DRAWER 7, Y5N ONE (08:48)
[2020-07-09] MEDS: PRENATAL VITAMINS W/ FOLIC ACID TABLET (FP) PO SCH (10:15)
[2020-07-09] MEDS: VITAMINS A AND D TOPICAL OINTMENT 60 GM TUBE TP SCH (10:15)
[2020-07-09] MEDS: METHYL SALICYLATE/MENTHOL OINT 30 GM TUBE TP SCH ×2 (10:15→21:32)
[2020-07-09] MEDS: NICOTINE 7 MG/24 HOURS TOPICAL PATCH TD SCH (10:15)
[2020-07-09] MEDS: ACETAMINOPHEN 325 MG TABLET (FP) PO PRN (17:07)
[2020-07-09] MEDS: THIAMINE HCL 100 MG TABLET (FP) PO SCH (21:36)
[2020-07-09] MEDS: MELATONIN 5 MG TABLETS PO SCH (21:36)
[2020-07-09] MEDS: METHOCARBAMOL 500 MG TABLET PO PRN (21:36)
[2020-07-09] MEDS: QUEtiapine FUMARATE 100 MG TABLET (FP) PO SCH (21:36)
[2020-07-10] MEDS ORDERED: METHADONE HCL 40 MG DISPERSABLE TABLET ONE (03:55)
[2020-07-10] MEDS ORDERED: METHADONE HCL 10 MG TABLET ONE (03:55)
[2020-07-10] MEDS: METHADONE 120 MG, METHADONE 10 MG PO SCH (06:14)
[2020-07-10] MEDS: PRENATAL VITAMINS W/ FOLIC ACID TABLET (FP) PO SCH (09:49)
[2020-07-10] MEDS: VITAMINS A AND D TOPICAL OINTMENT 60 GM TUBE TP SCH (09:49)
[2020-07-10] MEDS: NICOTINE 7 MG/24 HOURS TOPICAL PATCH TD SCH (09:49)
[2020-07-10] MEDS: METHYL SALICYLATE/MENTHOL OINT 30 GM TUBE TP SCH ×2 (09:49→21:04)
[2020-07-10] MEDS ORDERED: PT OWN MED DRAWER 7, Y5N ONE (18:27)
[2020-07-10] MEDS: MELATONIN 5 MG TABLETS PO SCH (21:03)
[2020-07-10] MEDS: THIAMINE HCL 100 MG TABLET (FP) PO SCH (21:03)
[2020-07-10] MEDS: QUEtiapine FUMARATE 100 MG TABLET (FP) PO SCH (21:03)
[2020-07-11] MEDS ORDERED: METHADONE HCL 10 MG TABLET ONE (03:54)
[2020-07-11] MEDS ORDERED: METHADONE HCL 40 MG DISPERSABLE TABLET ONE (03:55)
[2020-07-11] MEDS: METHADONE 120 MG, METHADONE 10 MG PO SCH (06:22)
[2020-07-11] MEDS ORDERED: PT OWN MED DRAWER 7, Y5N ONE (09:14)
[2020-07-11] MEDS: PRENATAL VITAMINS W/ FOLIC ACID TABLET (FP) PO SCH (10:23)
[2020-07-11] MEDS: METHYL SALICYLATE/MENTHOL OINT 30 GM TUBE TP SCH ×2 (10:24→21:24)
[2020-07-11] MEDS: NICOTINE 7 MG/24 HOURS TOPICAL PATCH TD SCH (10:24)
[2020-07-11] MEDS: VITAMINS A AND D TOPICAL OINTMENT 60 GM TUBE TP SCH (10:24)
[2020-07-11] MEDS: ACETAMINOPHEN 325 MG TABLET (FP) PO PRN (17:58)
[2020-07-11] MEDS: hydrOXYzine PAMOATE 25 MG CAPSULE (FP) PO PRN (21:23)
[2020-07-11] MEDS: QUEtiapine FUMARATE 100 MG TABLET (FP) PO SCH (21:23)
[2020-07-11] MEDS: THIAMINE HCL 100 MG TABLET (FP) PO SCH (21:23)
[2020-07-11] MEDS: MELATONIN 5 MG TABLETS PO SCH (21:23)
[2020-07-12] MEDS ORDERED: METHADONE HCL 10 MG TABLET ONE (03:51)
[2020-07-12] MEDS ORDERED: METHADONE HCL 40 MG DISPERSABLE TABLET ONE (03:52)
[2020-07-12] MEDS: METHADONE 120 MG, METHADONE 10 MG PO SCH (06:19)
[2020-07-12] MEDS ORDERED: PT OWN MED DRAWER 7, Y5N ONE (08:40)
[2020-07-12] MEDS: PRENATAL VITAMINS W/ FOLIC ACID TABLET (FP) PO SCH (09:37)
[2020-07-12] MEDS: NICOTINE 7 MG/24 HOURS TOPICAL PATCH TD SCH (09:37)
[2020-07-12] MEDS: VITAMINS A AND D TOPICAL OINTMENT 60 GM TUBE TP SCH (09:37)
[2020-07-12] MEDS: METHYL SALICYLATE/MENTHOL OINT 30 GM TUBE TP SCH ×2 (09:38→21:50)
[2020-07-12] MEDS: COLLOIDAL OATMEAL 1 BAR EACH TP PRN (15:41)
[2020-07-12] MEDS: THIAMINE HCL 100 MG TABLET (FP) PO SCH (21:07)
[2020-07-12] MEDS: QUEtiapine FUMARATE 100 MG TABLET (FP) PO SCH (21:07)
[2020-07-12] MEDS: METHOCARBAMOL 500 MG TABLET PO PRN (21:07)
[2020-07-12] MEDS: MELATONIN 5 MG TABLETS PO SCH (21:07)
[2020-07-13] MEDS ORDERED: METHADONE HCL 10 MG TABLET ONE (05:11)
[2020-07-13] MEDS ORDERED: METHADONE HCL 40 MG DISPERSABLE TABLET ONE (05:12)
[2020-07-13] MEDS: METHADONE 120 MG, METHADONE 10 MG PO SCH (06:27)
[2020-07-13] MEDS: NICOTINE 7 MG/24 HOURS TOPICAL PATCH TD SCH (10:00)
[2020-07-13] MEDS: PRENATAL VITAMINS W/ FOLIC ACID TABLET (FP) PO SCH (10:00)
[2020-07-13] MEDS: VITAMINS A AND D TOPICAL OINTMENT 60 GM TUBE TP SCH (10:01)
[2020-07-13] MEDS: METHYL SALICYLATE/MENTHOL OINT 30 GM TUBE TP SCH ×2 (10:01→21:32)
[2020-07-13] MEDS: MELATONIN 5 MG TABLETS PO SCH (21:33)
[2020-07-13] MEDS: LIDOCAINE 5% TOPICAL PATCH TP SCH (21:33)
[2020-07-13] MEDS: QUEtiapine FUMARATE 100 MG TABLET (FP) PO SCH (21:33)
[2020-07-13] MEDS: LIDOCAINE PATCH REMOVAL MC SCH (21:33)
[2020-07-13] MEDS: THIAMINE HCL 100 MG TABLET (FP) PO SCH (21:33)
[2020-07-14] MEDS ORDERED: METHADONE HCL 10 MG TABLET ONE (05:28)
[2020-07-14] MEDS ORDERED: METHADONE HCL 40 MG DISPERSABLE TABLET ONE (05:28)
[2020-07-14] MEDS: METHADONE 120 MG, METHADONE 10 MG PO SCH (05:53)
[2020-07-14] MEDS: LIDOCAINE 5% TOPICAL PATCH TP SCH (09:54)
[2020-07-14] MEDS: PRENATAL VITAMINS W/ FOLIC ACID TABLET (FP) PO SCH (09:54)
[2020-07-14] MEDS: METHYL SALICYLATE/MENTHOL OINT 30 GM TUBE TP SCH ×2 (09:55→21:39)
[2020-07-14] MEDS: VITAMINS A AND D TOPICAL OINTMENT 60 GM TUBE TP SCH (09:55)
[2020-07-14] MEDS: NICOTINE 7 MG/24 HOURS TOPICAL PATCH TD SCH (09:55)
[2020-07-14] MEDS ORDERED: PT OWN MED DRAWER 7, Y5N ONE (10:26)
[2020-07-14] MEDS: ACETAMINOPHEN 325 MG TABLET (FP) PO PRN (11:49)
[2020-07-14] MEDS ORDERED: QUEtiapine FUMARATE 50 MG TABLET PO SCH (16:05)
[2020-07-14] MEDS: THIAMINE HCL 100 MG TABLET (FP) PO SCH (21:39)
[2020-07-14] MEDS: LIDOCAINE PATCH REMOVAL MC SCH (21:39)
[2020-07-14] MEDS: QUEtiapine FUMARATE 50 MG TABLET PO SCH (21:39)
[2020-07-14] MEDS: MELATONIN 5 MG TABLETS PO SCH (21:39)
[2020-07-15] MEDS ORDERED: METHADONE HCL 10 MG TABLET ONE (03:37)
[2020-07-15] MEDS ORDERED: METHADONE HCL 40 MG DISPERSABLE TABLET ONE (03:38)
[2020-07-15] MEDS: METHADONE 120 MG, METHADONE 10 MG PO SCH (06:17)
[2020-07-15] MEDS ORDERED: PT OWN MED DRAWER 7, Y5N ONE ×2 (08:39→14:47)
[2020-07-15] MEDS: VITAMINS A AND D TOPICAL OINTMENT 60 GM TUBE TP SCH (10:35)
[2020-07-15] MEDS: NICOTINE 7 MG/24 HOURS TOPICAL PATCH TD SCH (10:35)
[2020-07-15] MEDS: LIDOCAINE 5% TOPICAL PATCH TP SCH (10:35)
[2020-07-15] MEDS: PRENATAL VITAMINS W/ FOLIC ACID TABLET (FP) PO SCH (10:35)
[2020-07-15] MEDS: METHYL SALICYLATE/MENTHOL OINT 30 GM TUBE TP SCH ×2 (10:35→21:58)
[2020-07-15] MEDS: amLODIPine BESYLATE 5 MG TABLET (FP) PO SCH (10:35)
[2020-07-15] MEDS: MELATONIN 5 MG TABLETS PO SCH (21:58)
[2020-07-15] MEDS: THIAMINE HCL 100 MG TABLET (FP) PO SCH (21:58)
[2020-07-15] MEDS: QUEtiapine FUMARATE 50 MG TABLET PO SCH ×2 (21:58→22:47)
[2020-07-15] MEDS: LIDOCAINE PATCH REMOVAL MC SCH (21:58)
[2020-07-16] MEDS ORDERED: METHADONE HCL 10 MG TABLET ONE (03:40)
[2020-07-16] MEDS ORDERED: METHADONE HCL 40 MG DISPERSABLE TABLET ONE (03:41)
[2020-07-16] MEDS: METHADONE 120 MG, METHADONE 10 MG PO SCH (05:59)
[2020-07-16] MEDS: VITAMINS A AND D TOPICAL OINTMENT 60 GM TUBE TP SCH (09:55)
[2020-07-16] MEDS: amLODIPine BESYLATE 5 MG TABLET (FP) PO SCH (09:55)
[2020-07-16] MEDS: PRENATAL VITAMINS W/ FOLIC ACID TABLET (FP) PO SCH (09:55)
[2020-07-16] MEDS: NICOTINE 7 MG/24 HOURS TOPICAL PATCH TD SCH (09:56)
[2020-07-16] MEDS: LIDOCAINE 5% TOPICAL PATCH TP SCH (09:56)
[2020-07-16] MEDS: METHYL SALICYLATE/MENTHOL OINT 30 GM TUBE TP SCH ×2 (09:56→23:00)
[2020-07-16] MEDS: THIAMINE HCL 100 MG TABLET (FP) PO SCH (23:00)
[2020-07-16] MEDS: LIDOCAINE PATCH REMOVAL MC SCH (23:00)
[2020-07-16] MEDS: MELATONIN 5 MG TABLETS PO SCH (23:00)
[2020-07-16] MEDS: QUEtiapine FUMARATE 50 MG TABLET PO SCH (23:00)
[2020-07-17] MEDS ORDERED: METHADONE HCL 40 MG DISPERSABLE TABLET ONE (05:53)
[2020-07-17] MEDS ORDERED: METHADONE HCL 10 MG TABLET ONE (05:53)
[2020-07-17] MEDS: METHADONE 120 MG, METHADONE 10 MG PO SCH (06:05)
[2020-07-17] MEDS: ACETAMINOPHEN 325 MG TABLET (FP) PO PRN ×2 (06:07→12:50)
[2020-07-17] MEDS ORDERED: PT OWN MED DRAWER 7, Y5N ONE (08:16)
[2020-07-17] MEDS: amLODIPine BESYLATE 5 MG TABLET (FP) PO SCH (09:36)
[2020-07-17] MEDS: VITAMINS A AND D TOPICAL OINTMENT 60 GM TUBE TP SCH (09:36)
[2020-07-17] MEDS: PRENATAL VITAMINS W/ FOLIC ACID TABLET (FP) PO SCH (09:36)
[2020-07-17] MEDS: NICOTINE 7 MG/24 HOURS TOPICAL PATCH TD SCH (09:37)
[2020-07-17] MEDS: METHYL SALICYLATE/MENTHOL OINT 30 GM TUBE TP SCH ×2 (09:37→21:09)
[2020-07-17] MEDS: LIDOCAINE 5% TOPICAL PATCH TP SCH (10:18)
[2020-07-17] MEDS: MELATONIN 5 MG TABLETS PO SCH (21:08)
[2020-07-17] MEDS: THIAMINE HCL 100 MG TABLET (FP) PO SCH (21:08)
[2020-07-17] MEDS: LIDOCAINE PATCH REMOVAL MC SCH (21:08)
[2020-07-17] MEDS: QUEtiapine FUMARATE 50 MG TABLET PO SCH (21:08)
[2020-07-18] MEDS ORDERED: METHADONE HCL 10 MG TABLET ONE (04:07)
[2020-07-18] MEDS ORDERED: METHADONE HCL 40 MG DISPERSABLE TABLET ONE (04:08)
[2020-07-18] MEDS: METHADONE 120 MG, METHADONE 10 MG PO SCH (06:25)
[2020-07-18] MEDS: amLODIPine BESYLATE 5 MG TABLET (FP) PO SCH (11:19)
[2020-07-18] MEDS: PRENATAL VITAMINS W/ FOLIC ACID TABLET (FP) PO SCH (11:19)
[2020-07-18] MEDS: LIDOCAINE 5% TOPICAL PATCH TP SCH (11:19)
[2020-07-18] MEDS: METHYL SALICYLATE/MENTHOL OINT 30 GM TUBE TP SCH ×2 (11:19→21:11)
[2020-07-18] MEDS: VITAMINS A AND D TOPICAL OINTMENT 60 GM TUBE TP SCH (11:20)
[2020-07-18] MEDS: NICOTINE 7 MG/24 HOURS TOPICAL PATCH TD SCH (11:20)
[2020-07-18] MEDS: ACETAMINOPHEN 325 MG TABLET (FP) PO PRN (11:20)
[2020-07-18] MEDS ORDERED: ALBUTEROL SO4 HFA INHALER IH PRN (11:28)
[2020-07-18] MEDS ORDERED: PT OWN MED DRAWER 7, Y5N ONE (16:55)
[2020-07-18] MEDS: CYPROHEPTADINE HCL 4 MG TABLET PO SCH (17:09)
[2020-07-18] MEDS: LIDOCAINE PATCH REMOVAL MC SCH (21:11)
[2020-07-18] MEDS: THIAMINE HCL 100 MG TABLET (FP) PO SCH (21:11)
[2020-07-18] MEDS: MELATONIN 5 MG TABLETS PO SCH (21:11)
[2020-07-18] MEDS: QUEtiapine FUMARATE 50 MG TABLET PO SCH (21:12)
[2020-07-19] MEDS ORDERED: METHADONE HCL 40 MG DISPERSABLE TABLET ONE (04:00)
[2020-07-19] MEDS ORDERED: METHADONE HCL 10 MG TABLET ONE (04:00)
[2020-07-19] MEDS ORDERED: PT OWN MED DRAWER 7, Y5N ONE ×3 (04:00→16:35)
[2020-07-19] MEDS: METHADONE 120 MG, METHADONE 10 MG PO SCH (06:10)
[2020-07-19] MEDS: CYPROHEPTADINE HCL 4 MG TABLET PO SCH ×3 (06:10→16:50)
[2020-07-19] MEDS: NICOTINE 7 MG/24 HOURS TOPICAL PATCH TD SCH (09:38)
[2020-07-19] MEDS: LIDOCAINE 5% TOPICAL PATCH TP SCH (09:38)
[2020-07-19] MEDS: amLODIPine BESYLATE 5 MG TABLET (FP) PO SCH (09:38)
[2020-07-19] MEDS: PRENATAL VITAMINS W/ FOLIC ACID TABLET (FP) PO SCH (09:38)
[2020-07-19] MEDS: METHYL SALICYLATE/MENTHOL OINT 30 GM TUBE TP SCH ×2 (10:14→21:05)
[2020-07-19] MEDS: THIAMINE HCL 100 MG TABLET (FP) PO SCH (21:05)
[2020-07-19] MEDS: LIDOCAINE PATCH REMOVAL MC SCH (21:05)
[2020-07-19] MEDS: QUEtiapine FUMARATE 50 MG TABLET PO SCH (21:05)
[2020-07-19] MEDS: MELATONIN 5 MG TABLETS PO SCH (21:05)
[2020-07-20] MEDS ORDERED: METHADONE HCL 10 MG TABLET ONE (03:11)
[2020-07-20] MEDS ORDERED: METHADONE HCL 40 MG DISPERSABLE TABLET ONE (03:11)
[2020-07-20] MEDS ORDERED: PT OWN MED DRAWER 7, Y5N ONE ×2 (03:13→16:40)
[2020-07-20] MEDS: METHADONE 120 MG, METHADONE 10 MG PO SCH (06:06)
[2020-07-20] MEDS: CYPROHEPTADINE HCL 4 MG TABLET PO SCH ×3 (06:07→16:40)
[2020-07-20] MEDS: LIDOCAINE 5% TOPICAL PATCH TP SCH (10:25)
[2020-07-20] MEDS: METHYL SALICYLATE/MENTHOL OINT 30 GM TUBE TP SCH ×2 (10:25→21:27)
[2020-07-20] MEDS: amLODIPine BESYLATE 5 MG TABLET (FP) PO SCH (10:25)
[2020-07-20] MEDS: PRENATAL VITAMINS W/ FOLIC ACID TABLET (FP) PO SCH (10:25)
[2020-07-20] MEDS: NICOTINE 7 MG/24 HOURS TOPICAL PATCH TD SCH (10:25)
[2020-07-20] MEDS: QUEtiapine FUMARATE 50 MG TABLET PO SCH (21:27)
[2020-07-20] MEDS: MELATONIN 5 MG TABLETS PO SCH (21:27)
[2020-07-20] MEDS: LIDOCAINE PATCH REMOVAL MC SCH (21:27)
[2020-07-20] MEDS: THIAMINE HCL 100 MG TABLET (FP) PO SCH (21:28)
[2020-07-21] MEDS ORDERED: METHADONE HCL 40 MG DISPERSABLE TABLET ONE (03:09)
[2020-07-21] MEDS ORDERED: METHADONE HCL 10 MG TABLET ONE (03:09)
[2020-07-21] MEDS ORDERED: PT OWN MED DRAWER 7, Y5N ONE ×2 (03:10→08:37)
[2020-07-21] MEDS: METHADONE 120 MG, METHADONE 10 MG PO SCH (06:09)
[2020-07-21] MEDS: CYPROHEPTADINE HCL 4 MG TABLET PO SCH ×3 (06:10→21:37)
[2020-07-21] MEDS: LIDOCAINE 5% TOPICAL PATCH TP SCH (09:54)
[2020-07-21] MEDS: amLODIPine BESYLATE 5 MG TABLET (FP) PO SCH (09:54)
[2020-07-21] MEDS: AMMONIUM LACTATE 12% LOTION 225 GM BOTTLE TP PRN (09:55)
[2020-07-21] MEDS: PRENATAL VITAMINS W/ FOLIC ACID TABLET (FP) PO SCH (09:55)
[2020-07-21] MEDS: NICOTINE 7 MG/24 HOURS TOPICAL PATCH TD SCH (09:55)
[2020-07-21] MEDS: METHYL SALICYLATE/MENTHOL OINT 30 GM TUBE TP SCH ×2 (09:55→21:36)
[2020-07-21] MEDS: MELATONIN 5 MG TABLETS PO SCH (21:36)
[2020-07-21] MEDS: LIDOCAINE PATCH REMOVAL MC SCH (21:36)
[2020-07-21] MEDS: THIAMINE HCL 100 MG TABLET (FP) PO SCH (21:37)
[2020-07-21] MEDS: QUEtiapine FUMARATE 50 MG TABLET PO SCH (21:37)
[2020-07-22] MEDS ORDERED: METHADONE HCL 10 MG TABLET ONE (03:03)
[2020-07-22] MEDS ORDERED: METHADONE HCL 40 MG DISPERSABLE TABLET ONE (03:03)
[2020-07-22] MEDS ORDERED: PT OWN MED DRAWER 7, Y5N ONE ×4 (03:04→19:14)
[2020-07-22] MEDS: METHADONE 120 MG, METHADONE 10 MG PO SCH (06:18)
[2020-07-22] MEDS: CYPROHEPTADINE HCL 4 MG TABLET PO SCH ×3 (06:20→17:09)
[2020-07-22] MEDS: amLODIPine BESYLATE 5 MG TABLET (FP) PO SCH (09:56)
[2020-07-22] MEDS: PRENATAL VITAMINS W/ FOLIC ACID TABLET (FP) PO SCH (09:56)
[2020-07-22] MEDS: METHYL SALICYLATE/MENTHOL OINT 30 GM TUBE TP SCH ×2 (09:57→22:06)
[2020-07-22] MEDS: NICOTINE 7 MG/24 HOURS TOPICAL PATCH TD SCH (09:57)
[2020-07-22] MEDS: LIDOCAINE 5% TOPICAL PATCH TP SCH (09:57)
[2020-07-22] MEDS: hydrOXYzine PAMOATE 25 MG CAPSULE (FP) PO PRN (09:58)
[2020-07-22] MEDS: COLLOIDAL OATMEAL 1 BAR EACH TP PRN (09:58)
[2020-07-22] MEDS: AMMONIUM LACTATE 12% LOTION 225 GM BOTTLE TP PRN (09:59)
[2020-07-22] MEDS: LIDOCAINE PATCH REMOVAL MC SCH (22:06)
[2020-07-22] MEDS: QUEtiapine FUMARATE 50 MG TABLET PO SCH (22:07)
[2020-07-22] MEDS: MELATONIN 5 MG TABLETS PO SCH (22:07)
[2020-07-22] MEDS: THIAMINE HCL 100 MG TABLET (FP) PO SCH (22:07)
[2020-07-23] MEDS ORDERED: METHADONE HCL 10 MG TABLET ONE (03:18)
[2020-07-23] MEDS ORDERED: METHADONE HCL 40 MG DISPERSABLE TABLET ONE (03:19)
[2020-07-23] MEDS ORDERED: PT OWN MED DRAWER 7, Y5N ONE ×3 (03:19→16:36)
[2020-07-23] MEDS: CYPROHEPTADINE HCL 4 MG TABLET PO SCH ×3 (06:19→17:54)
[2020-07-23] MEDS: METHADONE 120 MG, METHADONE 10 MG PO SCH (06:19)
[2020-07-23] MEDS: PRENATAL VITAMINS W/ FOLIC ACID TABLET (FP) PO SCH (09:33)
[2020-07-23] MEDS: hydrOXYzine PAMOATE 25 MG CAPSULE (FP) PO PRN (09:34)
[2020-07-23] MEDS: amLODIPine BESYLATE 5 MG TABLET (FP) PO SCH (09:34)
[2020-07-23] MEDS: LIDOCAINE 5% TOPICAL PATCH TP SCH (09:35)
[2020-07-23] MEDS: NICOTINE 7 MG/24 HOURS TOPICAL PATCH TD SCH (09:35)
[2020-07-23] MEDS: METHYL SALICYLATE/MENTHOL OINT 30 GM TUBE TP SCH ×2 (09:35→21:32)
[2020-07-23] MEDS: THIAMINE HCL 100 MG TABLET (FP) PO SCH (21:32)
[2020-07-23] MEDS: QUEtiapine FUMARATE 50 MG TABLET PO SCH (21:32)
[2020-07-23] MEDS: MELATONIN 5 MG TABLETS PO SCH (21:32)
[2020-07-23] MEDS: LIDOCAINE PATCH REMOVAL MC SCH (21:32)
[2020-07-24] MEDS ORDERED: METHADONE HCL 40 MG DISPERSABLE TABLET ONE (03:41)
[2020-07-24] MEDS ORDERED: METHADONE HCL 10 MG TABLET ONE (03:41)
[2020-07-24] MEDS: METHADONE 120 MG, METHADONE 10 MG PO SCH (06:37)
[2020-07-24 06:38] VITALS: TEMP 97.3
[2020-07-24] MEDS: CYPROHEPTADINE HCL 4 MG TABLET PO SCH ×3 (06:38→17:42)
[2020-07-24] MEDS: PRENATAL VITAMINS W/ FOLIC ACID TABLET (FP) PO SCH (09:31)
[2020-07-24] MEDS: hydrOXYzine PAMOATE 25 MG CAPSULE (FP) PO PRN (09:32)
[2020-07-24] MEDS: amLODIPine BESYLATE 5 MG TABLET (FP) PO SCH (09:33)
[2020-07-24] MEDS: LIDOCAINE 5% TOPICAL PATCH TP SCH (09:34)
[2020-07-24] MEDS: METHYL SALICYLATE/MENTHOL OINT 30 GM TUBE TP SCH ×2 (09:34→23:59)
[2020-07-24] MEDS: NICOTINE 7 MG/24 HOURS TOPICAL PATCH TD SCH (09:34)
[2020-07-24] MEDS: THIAMINE HCL 100 MG TABLET (FP) PO SCH (21:22)
[2020-07-24] MEDS: QUEtiapine FUMARATE 50 MG TABLET PO SCH (21:22)
[2020-07-24] MEDS: MELATONIN 5 MG TABLETS PO SCH (21:22)
[2020-07-24] MEDS: LIDOCAINE PATCH REMOVAL MC SCH (21:24)
[2020-07-25] MEDS ORDERED: METHADONE HCL 10 MG TABLET ONE (03:22)
[2020-07-25] MEDS ORDERED: METHADONE HCL 40 MG DISPERSABLE TABLET ONE (03:23)
[2020-07-25] MEDS: CYPROHEPTADINE HCL 4 MG TABLET PO SCH (06:32)
[2020-07-25] MEDS: METHADONE 120 MG, METHADONE 10 MG PO SCH (06:33)
[2020-07-25 07:00] VITALS: BP 148/78; PULSE 85
[2020-07-25] MEDS: hydrOXYzine PAMOATE 25 MG CAPSULE (FP) PO PRN (09:15)
[2020-07-25] MEDS: amLODIPine BESYLATE 5 MG TABLET (FP) PO SCH (09:15)
[2020-07-25] MEDS: PRENATAL VITAMINS W/ FOLIC ACID TABLET (FP) PO SCH (09:15)
[2020-07-25] MEDS: NICOTINE 7 MG/24 HOURS TOPICAL PATCH TD SCH (09:16)
[2020-07-25] MEDS: METHYL SALICYLATE/MENTHOL OINT 30 GM TUBE TP SCH (09:16)
[2020-07-25] MEDS: LIDOCAINE 5% TOPICAL PATCH TP SCH (09:16)
== END 2020-07-25 09:35 | disposition home or self-care (01) | DRG 772 ==
LOC: YASAS 13:49 → Y5N 13:58 → Y3E 07-08 14:00
PROVIDERS: ADMIT Allergy & Immunology; ATTEND Allergy & Immunology
PROC: HZ42ZZZ Group Counseling for Substance Abuse Treatment, Cognitive-Behavioral (ICD-10-PCS; principal; 2020-07-06)
DX: F10.20 Alcohol dependence, uncomplicated (principal); F11.20 Opioid dependence, uncomplicated; F13.20 Sedative, hypnotic or anxiolytic dependence, uncomplicated; F17.210 Nicotine dependence, cigarettes, uncomplicated; F19.282 Other psychoactive substance dependence with psychoactive substance-induced sleep disorder; F25.9 Schizoaffective disorder, unspecified; I10 Essential (primary) hypertension; J45.909 Unspecified asthma, uncomplicated; L25.9 Unspecified contact dermatitis, unspecified cause; B18.2 Chronic viral hepatitis C; R63.4 Abnormal weight loss; Z68.24 Body mass index [BMI] 24.0-24.9, adult; Z98.890 Other specified postprocedural states; Z88.6 Allergy status to analgesic agent; Z56.0 Unemployment, unspecified; Z59.0 Homelessness
CPT/HCPCS: C9803; U0003